=== PATIENT | male | born 1970 | race Caucasian/White ===

== ENCOUNTER → 2016-10-17 | Outpatient (CLI) | payer OTHER ==
[~2016-10-17] MED LIST: ACET-1256 PO; AMLO-114 PO; APIX1TAB3 PO; ASPI81TA28 PO; ATOR-24 PO; CLOP1TAB15 PO; CYAN10005 PO; DOXA2TAB PO; DOXY50CA PO; GLIP10TA9 PO; HYDR25TA4 PO; LOSA1TAB38 PO; LVT/20 PO; LYR50 PO; MAGNEVIST IV PRN; MECL1TAB42 PO; METF-384 PO; METH500T37 PO; METO1TAB68 PO; OMEP20CA9 PO; ONDA4TAB10 SL; SERT50TA PO; SITA100T3 PO; TRAM-10 PO
--- NOTE | 2016-10-17 10:55 | DIAGNOSTIC IMAGING REPORT ---
Brain MRA HISTORY: Mental status change HX OF Stroke, vascular EVALUATION TECHNIQUE: 3-D [id number] MRA of the brain was performed without contrast. COMPARISON STUDY: None. FINDINGS: Visualized intracranial internal carotid arteries, distal vertebral arteries, and basilar artery are widely patent. There is no significant stenosis, occlusion, or aneurysm seen within the bilateral ACAs, MCAs, or dividing machine operator helper. IMPRESSION: No significant stenosis, occlusion, or aneurysm within the minto of [place]. Electronically signed by: Adrián Fair M.D. 10/17/2016 10:54 AM Dictated Date/Time: 10/17/2016 10:49 AM
--- NOTE | 2016-10-17 11:01 | DIAGNOSTIC IMAGING REPORT ---
MR ANGIOGRAM OF THE NECK COMBO CLINICAL HISTORY: Strokelike symptoms. Headaches and vertigo. COMPARISON STUDY: No priors. TECHNIQUE: Axial 2-D [id number] MR angiography of the neck is performed. Subsequently, following the IV administration of 20 cc of Magnevist coronal MR angiogram of the neck was performed to corroborate the findings. 3-D reformats are created and assessed. All measurements were calculated based on NASCET criteria. FINDINGS: Visualized portions of the thoracic aorta are normal in caliber. The arch demonstrates standard 3 vessel anatomy. The subclavian arteries are widely patent bilaterally. The right common carotid artery is widely patent, as are the right internal and external carotid arteries. The left common carotid artery is widely patent, as are the left internal and external carotid arteries. There is tortuosity of the distal left internal carotid artery. The vertebral arteries are widely patent and codominant. The jugular veins appear clear. Partially visualized intracranial vessels are widely patent. IMPRESSION: Unremarkable MR angiogram of the neck. Electronically signed by: Amaury Graves M.D. 10/17/2016 11:00 AM Dictated Date/Time: 10/17/2016 10:55 AM
--- NOTE | 2016-10-17 11:04 | DIAGNOSTIC IMAGING REPORT ---
MRI OF THE BRAIN WITHOUT AND WITH IV CONTRAST CLINICAL HISTORY: Headaches, vertigo, suspected stroke. COMPARISON STUDY: No previous studies for comparison. TECHNIQUE: MRI of the brain was performed from the vertex to the skull base utilizing various T1 and T2 weighted sequences. Following the IV administration of 20 mL of Magnevist contrast, additional enhanced images were obtained. FINDINGS: Sagittal T1, axial diffusion, proton density and T2 weighted axial, coronal FLAIR, and pre and post axial T1-weighted images were acquired. These were supplemented with post gadolinium coronal T1 weighted images. 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 There is no evidence of ventricular dilatation. Proton density T2-weighted and FLAIR images reveal scattered foci of increased T2 signal within the white matter, likely on a small vessel basis. There are no abnormal flow voids. There is unusual serpentine enhancement involving both cerebellar hemispheres. These areas demonstrate mild increased T1 signal and precontrast images. There is corresponding increased FLAIR signal. Although somewhat unusual, I would favor the abnormalities being secondary to post infarct enhancement. A 2 month follow-up study is recommended. The study was reviewed with a fellow radiologist. IMPRESSION: 1. Serpentine/gyriform enhancement within the cerebellar hemispheres left greater than right. I would favor the abnormalities being secondary to subacute postinfarct enhancement. A 2 month follow-up study is recommended. 2. 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 Electronically signed by: Aly Gilman M.D. 10/17/2016 11:03 AM Dictated Date/Time: 10/17/2016 10:47 AM
== END | disposition home or self-care (01) ==
LOC: C.MRIBC 08:50
PROVIDERS: ATTEND Psychiatry & Neurology Neurology
DX: I63.9 Cerebral infarction, unspecified (principal); E34.8 Other specified endocrine disorders

== ENCOUNTER → 2016-12-02 | Day surgery (SDC) | payer OTHER ==
[2016-12-02] VITALS (7 sets, daily range): BP systolic 122–197; BP diastolic 81–106; PULSE 93–120; TEMP 36.6; O2SAT 92–99; Ht 185.4 cm; Wt 127.2 kg
[~2016-12-02] VITALS: Ht 185.4 cm; Wt 127.2 kg
[~2016-12-02] MED LIST changes: +LIDOCAINE HCL 2% 2 ML VIAL (20MG/ML) ONE; +LIDOCAINE HCL 2% VISC SOLN 20 ML UDC ONE; -MAGNEVIST IV PRN; +PROPOFOL IV EMULSION 10 MG/ML 20 ML VIAL IV ONE; +SODIUM CHLORIDE 0.9% 500ML 500 ML IV ONE
--- NOTE | 2016-12-02 07:46 | History & Physical Bridge Note ---
H&P Re-Evaluation Bridge Note: I have examined the patient, reviewed the History & Physical and in the interval since the performance of the History & Physical I have noted the following changes of clinical significance: Patient had an episode of emesis in procedure staging area. Eckert improved when assessed by the undersigned. Had been NPO with last meal at 9:30 pm last evening, had oral medications at 5 am this morning with sip of water. Notes recent labile blood glucose with high and low levels.
--- NOTE | 2016-12-02 08:01 | Cardiology Procedure Brief Nt ---
Preliminary Cardiology Note Procedure Date Dec 02, 2016. Pre-Procedure Diagnosis stroke, rule out cardiac souce of embolism Post-Procedure Diagnosis same Procedure(s) Performed NGOZI attempted, esophageal intubation was attempted. Soap Inspector Nabila Amaya DO Health Insurance Sales Agent(s) Elana Mcleod, TAYLA Estimated Blood Loss none Preliminary Findings Patient received topical cetacaine or the posterior oropharynx and viscous lidocaine. Patient received sedation with assistance of anesthesia, receiving 20 mg IV lidocaine and 100 mg IV propofol. An attempt at esophageal intubation was made, probe was advanced to the posterior oropharynx. The patient demonstrated a vigorous gag reflect and vomited yellow liquid. The procedure was aborted. Patient was suctioned vitals signed including oxygen saturations remained stable. Recommendations NGOZI canceled. Proceed with transthoracic echocardiogram this am as patient has yet to have one. Patient with no infectious symptoms prior to episode of emesis prior to procedure this am and second episode when procedure initiated. Given above events will obtain labs, CBC, CMP and EKG. Specimens none Anesthesia lidocaine 20 mg IV , propofol 100 mg IV Complication(s) None Disposition will obtain labs and monitor in cardiac supervisor laboratory recovery area, prior to determining disposition
[2016-12-02 08:22] LABS: BASO % 0.2 %; BASO ABS # 0.01 K/uL (0-0.2); EOS % 1.8 %; HEMATOCRIT 39.2 % (42-52); LYMPH % 18.9 %; LYMPH ABS # 0.97 K/uL (1.2-3.4); MEAN CELL VOLUME 79.8 fL (80-100); MEAN CORPUSCULAR HEMOGLOBIN 29.5 pg (25-34); MEAN PLATELET VOLUME 9.9 fL (7.4-10.4); MONO % 6.4 %; NEUT % 72.7 %; PLATELET COUNT 155 K/uL (130-400); RED BLOOD COUNT 4.91 M/uL (4.7-6.1); WHITE BLOOD COUNT 5.14 K/uL (4.8-10.8)
--- NOTE | 2016-12-02 08:22 | Anesthesiology Progress Note ---
Anesthesia Post Op Note Date & Time Dec 02, 2016 at 08:22 Vital Signs Pain Intensity: 6 Vital Signs Past 12 Hours Date Time Temp Pulse Resp B/P Pulse Ox O2 Delivery O2 Flow Rate FiO2 12/02/16 08:15 99 18 139/86 94 Room Air 12/02/16 08:05 99 16 147/85 94 Room Air 12/02/16 07:55 93 18 122/80 96 Room Air 12/02/16 07:45 95 14 122/82 99 Nasal Cannula 2 12/02/16 07:40 93 14 135/81 99 Nasal Cannula 4 12/02/16 07:38 101 18 197/93 98 Nasal Cannula 4 12/02/16 07:35 120 18 137/85 95 Nasal Cannula 4 12/02/16 07:31 99 17 146/103 98 Nasal Cannula 4 12/02/16 06:53 36.6 96 16 146/106 94 Room Air Notes Mental Status: alert / awake / arousable, participated in evaluation Pt Amnestic to Procedure: Yes Nausea / Vomiting: adequately controlled Pain: adequately controlled Airway Patency, RR, SpO2: stable & adequate BP & HR: stable & adequate Hydration State: stable & adequate Anesthetic Complications: no major complications apparent
[2016-12-02 08:27] LABS: COMPLETE YES
[2016-12-02 08:50] LABS: ALB/GLOB RATIO 1.1 (0.9-2); BUN/CREATININE RATIO 22.7 (10-20); CREATININE 0.88 mg/dl (0.60-1.40); POTASSIUM 3.7 mmol/L (3.5-5.1)
--- NOTE | 2016-12-02 09:47 | Cardiology Follow-Up ---
Subjective General Date of Service: Dec 02, 2016. Chief Complaint: dizziness Pt evaluation today including: conversation w/ patient, conversation w/ family , physical exam, lab review, review of studies History of Present Illness The patient is a 46 year old male who is reassessed in the cardiac laborer cement gun placing recovery area after unsuccessful NGOZI , test terminated due to vomiting. Patient feels well. He believes he vomited because he took 15 pills with a sip of water this am without food and typically he eats and splits up when he takes them instead of taking them all the time. He feels well now. He denies recurrent nausea. Labs are stable with stable electrolytes and no leukocytosis. Blood glucose is mildly elevated at 244 mg/dl which is not unusual for him. Allergies Coded Allergies: No Known Allergies (Unverified , 10/17/16) Social History Smoking Status: Former Smoker Hx Substance Use - Type And Am: Yes Physical Exam Vital Signs Last Vital Signs Documentation Date Time Temp Pulse Resp B/P Pulse Ox O2 Delivery O2 Flow Rate FiO2 12/02/16 08:45 92 16 135/92 93 Room Air 12/02/16 07:45 2 12/02/16 06:53 36.6 Physical Exam Constitutional: Level of Distress: NAD ENMT: normal ENT inspection Neck: supple Lungs: Auscultation: no wheezing, no rales/crackles, no rhonchi Cardiovascular: Heart Auscultation: RRR, normal S2, no rubs, no gallops Abdomen: Inspection & Palpation: soft, non-distended, no tenderness, guarding & rebound Extremities: no edema Neurologic: Gait & Station: pertinent finding (follows commands, moves all 4 extremities , continues to not gait difficulties ) Assessment and Plan Assessment and Plan Impression: 1. Emesis , as noted above, therefore NGOZI aborted. 2. Transthoracic echocardiogram revealing normal LVEF, no significant valve abnormalities, Resolution does not permit exclusion of PFO. 3. H/o DM2, with HTN, dyslipidemia, diabetic neuropathy, past foot ulcer that required amputation 4. Recent cerebellar stroke Plan: Patient has significant vascular risk factors, cause of stroke is likely due to atherosclerosis, rather than cardioembolic stroke. Given issues with attempting NGOZI, emesis despite performing test with anesthesia consult, believe risk of NGOZI (aspiration) outweigh clinical benefit at this time. Based on results of TTecho , would proceed with stroke therapy with ASA and clopidogrel as recommended already by neurology, and risk factor management with medication for DM, BP control, and statin therapy. Will see patient back in office in 1 month for reassessment. Nabila Amaya DO Laboratory Results Last 24 Hours Test 12/02/16 08:10 White Blood Count 5.14 K/uL Red Blood Count 4.91 M/uL Hemoglobin 14.5 g/dL Hematocrit 39.2 % Mean Corpuscular Volume 79.8 fL Mean Corpuscular Hemoglobin 29.5 pg Mean Corpuscular Hemoglobin Concent 37.0 g/dl Platelet Count 155 K/uL Mean Platelet Volume 9.9 fL Neutrophils (%) (Auto) 72.7 % Lymphocytes (%) (Auto) 18.9 % Monocytes (%) (Auto) 6.4 % Eosinophils (%) (Auto) 1.8 % Basophils (%) (Auto) 0.2 % Neutrophils # (Auto) 3.74 K/uL Lymphocytes # (Auto) 0.97 K/uL Monocytes # (Auto) 0.33 K/uL Eosinophils # (Auto) 0.09 K/uL Basophils # (Auto) 0.01 K/uL RDW Standard Deviation 37.4 fL RDW Coefficient of Variation 13.0 % Immature Granulocyte % (Auto) 0.0 % Immature Granulocyte # (Auto) 0.00 K/uL Sodium Level 136 mmol/L Potassium Level 3.7 mmol/L Chloride Level 99 mmol/L Carbon Dioxide Level 24 mmol/L Anion Gap 13.0 mmol/L Blood Urea Nitrogen 20 mg/dl Creatinine 0.88 mg/dl Est Creatinine Clear Calc Drug Dose 146.6 ml/min Estimated GFR () 119.4 Estimated GFR (Non- 103.0 BUN/Creatinine Ratio 22.7 Random Glucose 225 mg/dl Calcium Level 9.0 mg/dl Total Bilirubin 0.6 mg/dl Aspartate Amino Transf (AST/SGOT) 25 U/L Alanine Aminotransferase (ALT/SGPT) 55 U/L Alkaline Phosphatase 144 U/L Total Protein 7.2 gm/dl Albumin 3.8 gm/dl Globulin 3.4 gm/dl Albumin/Globulin Ratio 1.1
--- NOTE | 2016-12-02 09:50 | Discharge Instructions ---
Discharge Instructions Procedure Procedure Date: Dec 02, 2016. Reason for Visit: NGOZI, recent stroke. Discharge Discharge Date: Dec 02, 2016. Discharge Diagnosis: Unsuccessful NGOZI. Normal Transthoracic echocardiogram. Last Recorded Wt (Kilograms): 127.2 Anesthesia Post Anesthesia Instructions: If you have had General Anesthesia or IV Sedation: * Do not drive today. * Resume driving when surgeon permits. * Do not make important decisions or sign legal documents today. * Call surgeon for: 1. Temperature elevations greater than 101 degrees F. 2. Uncontrollable pain. 3. Excessive bleeding. 4. Persistent nausea and vomiting. 5. Medication intolerance (nausea, vomiting or rash). * For nausea and vomiting use only clear liquids such as: tea, soda, bouillon until nausea subsides, then gradually increase diet as tolerated. * If you have any concerns or questions, call your surgeon's office. If physician is unavailable and it is an emergency, call 911 or go to the nearest emergency room. Instructions Allergies: Coded Allergies: No Known Allergies (Unverified , 10/17/16) Provider Instructions ACTIVITY RECOMMENDATIONS: Resume activities as tolerated with no limitations unless specified. _x_ No lifting over _10_ pounds for 24 hours. _x_ Do not engage in vigorous exercise, sexual activity, or sports for 24 hours. __x Do not drive or operate any motorized equipment for 24 hours. __x You may return to work/school tomorrow. _x_ Nothing to eat or drink until gag reflex returns. _x_ No HOT or WARM liquids for _24_ hours. _x_ Avoid "scratchy" foods such as potato chips or pretzels for 24 hours following procedure. SPECIAL CARE: If you experience coughing up or vomiting of blood, contact ___Dr Amaya, [phone] Follow Up Follow-up with: Keep neurology follow up. Follow up with Dr Amaya in 1 month, office will call you. Jose Booth Recommendations: Call your doctor if: * Temperature above 101 degrees * Pain not relieved by pain medicine ordered * There is increased drainage or redness from any incision * You have any unanswered questions or concerns. Your Doctors Instructions noted above were prepared by provider Griffin Amaya. Patient Signature Section: Patient Instructions Signature Page Kris Haney Patient (or Guardian) Signature/Date: I have read and understand the instructions given to me by my caregivers. Caregiver/RN/Doctor Signature/Date: The above-named patient and/or guardian has received patient instructions on this date. + Original Patient Signature Page (only) stays with chart. Please make copy for patient.
--- NOTE | 2016-12-02 10:05 | ECHOCARDIOGRAM REPORT ---
*NOTICE TO RECEIVING [employer] This information is strictly Confidential and protected under [place] law. [place] law prohibits you from making any further disclosure of this information unless further disclosure is expressly permitted by the written consent of the person to whom it pertains or is authorized by law. A general authorization for the release of medical or other information is not sufficient for this purpose. Hospital accepts no responsibility if the information is made available to any other person, INCLUDING THE PATIENT. Interpretation Summary * Name: DARCIE MORIN Study Date: 12/02/2016 07:24 AM BP: 146/106 mmHg * Patient Location: Cardiac Frontend Engineer Holding area HR: 95 * : 1970 (M/d/yyyy) Gender: Male Height: 73 in * Age: 46 yrs Ethnicity: [place] Weight: 280 lb * Ordering Physician: Griffin Amaya DO, FACC * Referring Physician: Griffin Amaya DO, FACC * Performed By: Duran Mcleod [facility] * * Reason For Study: Cerebral Ischemia/Embolus * BSA: 2.5 m2 * NGOZI Probe #1 utilized for procedure. Procedure was aborted when probe insertion was attempted due to patient vomiting. Insertion attempted at 7:44 AM. A Transthoracic ECHO was performed instead. * Time out was conducted by the physician, nurse, and organic preparation technician with positive identification of patient and procedure. * Informed consent for Transesophageal Echocardiogram was obtained prior to the procedure. * An intravenous line was placed. A topical anesthetic agent was used for oropharangeal anesthesia. A bite block was inserted. * Sedation performed by the anesthesia department. * The patient's vital signs, including blood pressure, heart rate, pulse oximetry and cardiac rhythm were monitored throughout the procedure * The study was technically adequate. * -- Conclusions -- * Transesophageal echocardiogram procedure was aborted due to vomiting when probe insertion was attempted. * A complete transthoracic echocardiogram was therefore performed. * No regional wall motion abnormalities noted. * There is no left ventricular mural thrombus. * The LV Ejection Fraction = 65-70%. * There is no evidence of atrial septal defect, but resolution does not allow assessment for a patent foramen ovale. Procedure Details * A complete two-dimensional transthoracic echocardiogram was performed (2D, M-mode, Doppler and color flow Doppler). * A saline contrast injection was performed to assess for cardiac shunting. * The injection was performed through an intravenous line in the left arm. * The attending nurse who injected the saline contrast was Caleb Gould RN. * A total of 20 cc of agitated saline was given. * A contrast injection of Definity was performed to improve assessment of LV function. * Contrast was injected into an intravenous site in the left arm. * One vial of Definity ultrasound contrast was diluted in normal saline to a total volume of 10 ml. A total of '2' ml of solution was administered during imaging. * Lot # [id number] of Definity utilized for procedure. * Expiration date 1APR18. * The attending nurse who injected the contrast agent was Caleb Gould RN. Left Ventricle * The left ventricle is normal in size. * There is no left ventricular mural thrombus. * There is borderline concentric left ventricular hypertrophy. * Left ventricular systolic function is normal. * Ejection Fraction = 65-70%. * The left ventricular wall motion is normal. * No regional wall motion abnormalities noted. Right Ventricle * The right ventricle is normal size. * The right ventricular systolic function is normal as assessed by tricuspid annular plane systolic excursion (TAPSE) (normal >1.5 cm). Atria * The left atrial size is normal. * Right atrial size is normal. * There is no evidence of atrial septal defect, but resolution does not allow assessment for a patent foramen ovale. Mitral Valve * The mitral valve is normal. * There is no mitral valve stenosis. * Significant mitral regurgitation is absent. Tricuspid Valve * The tricuspid valve is normal. * There is no tricuspid stenosis. * Significant tricuspid regurgitation is absent. Aortic Valve * The aortic valve is trileaflet. * Aortic stenosis is absent. * There is no significant aortic regurgitation. Pulmonic Valve * The pulmonary valve is not well seen, but the Doppler examination is normal without significant regurgitation or stenosis. Great Vessels * The aortic root and proximal ascending aorta are normal sized. Pericardium/Pleural * There is no pericardial effusion. Great Vessels * Normal inferior vena cava diameter and respiratory variation suggests normal central venous pressure. Left Ventricular Diastolic Function * Grade I diastolic dysfunction, (abnormal relaxation pattern). MMode 2D Measurements and Calculations IVSd 1.1 cm IVSs 1.3 cm LVIDd 5.2 cm LVIDs 3.6 cm LVPWd 1.1 cm LVPWs 1.4 cm IVS/LVPW 1.0 FS 29.3 % EDV(Teich) 126.6 ml ESV(Teich) 56.0 ml EF(Teich) 55.8 % EDV(cubed) 136.6 ml ESV(cubed) 48.3 ml EF(cubed) 64.6 % % IVS thick 11.6 % % LVPW thick 30.7 % LV mass(C)d 220.3 grams LV mass(C)dI 88.7 grams/m\S\2 LV mass(C)s 171.5 grams LV mass(C)sI 69.1 grams/m\S\2 CO(Teich) 6.6 l/min CI(Teich) 2.7 l/min/m\S\2 SV(Teich) 70.7 ml SI(Teich) 28.5 ml/m\S\2 CO(cubed) 8.3 l/min CI(cubed) 3.3 l/min/m\S\2 SV(cubed) 88.3 ml SI(cubed) 35.6 ml/m\S\2 Ao root diam 4.0 cm Ao root area 12.8 cm\S\2 ACS 2.0 cm LA dimension 3.5 cm LA/Ao 0.86 LVAd ap4 32.4 cm\S\2 LVLd ap4 8.8 cm EDV(MOD-sp4) 101.0 ml LVAs ap4 16.1 cm\S\2 LVLs ap4 7.0 cm ESV(MOD-sp4) 30.0 ml EF(MOD-sp4) 70.3 % LVAd ap2 32.5 cm\S\2 LVLd ap2 8.8 cm EDV(MOD-sp2) 98.0 ml LVAs ap2 16.3 cm\S\2 LVLs ap2 6.9 cm ESV(MOD-sp2) 33.0 ml EF(MOD-sp2) 66.3 % CO(MOD-sp4) 6.7 l/min CI(MOD-sp4) 2.7 l/min/m\S\2 SV(MOD-sp4) 71.0 ml SI(MOD-sp4) 28.6 ml/m\S\2 CO(MOD-sp2) 6.1 l/min CI(MOD-sp2) 2.5 l/min/m\S\2 SV(MOD-sp2) 65.0 ml SI(MOD-sp2) 26.2 ml/m\S\2 Doppler Measurements and Calculations MV E max harpal 63.2 cm/sec MV A max harpal 73.7 cm/sec MV E/A 0.86 MV P1/2t max harpal 82.7 cm/sec MV P1/2t 55.4 msec MVA(P1/2t) 4.0 cm\S\2 MV dec slope 437.0 cm/sec\S\2 MV dec time 0.19 sec Ao V2 max 129.0 cm/sec Ao max PG 6.7 mmHg Ao max PG (full) 2.3 mmHg LV V1 max PG 4.3 mmHg LV V1 max 103.7 cm/sec PA V2 max 103.7 cm/sec PA max PG 4.3 mmHg
--- NOTE | 2016-12-02 10:49 | TEE ---
TRANSESOPHAGEAL ECHOCARDIOGRAM REPORT INDICATIONS: Recent cerebellar stroke, assess for cardiac source of embolism. PROCEDURE: After informed consent was obtained and a time out was performed, the patient's posterior oropharynx was anesthetized with administration of viscous lidocaine and Cetacaine spray. The patient then received anesthesia with the assistance of Dr. Mejia, receiving 20 mg of IV lidocaine and 100 mg of IV propofol. The transesophageal echocardiogram probe was passed into the posterior oropharynx and as it was advanced to the proximal esophagus, the patient developed a vomiting episode of yellow liquid. The transesophageal echocardiogram probe was therefore withdrawn and the patient's secretions were suctioned. The patient's vital signs remained stable. There was no clinical evidence of aspiration. The transesophageal echocardiogram procedure was therefore aborted due to the emesis event. The patient went on to have a transthoracic echocardiogram for further evaluation for cardiac source of embolism as he had never had one of these studies before. The patient recovered in the cardiac catheterization recovery area. Blood pressures and lab work was stable and he was subsequently discharged. Refer to separate report for details of the transthoracic echocardiogram findings. RAZAD
== END | disposition home or self-care (01) ==
LOC: C.CATH 06:30
PROVIDERS: ATTEND Specialist
DX: I63.9 Cerebral infarction, unspecified (principal); I10 Essential (primary) hypertension; E11.42 Type 2 diabetes mellitus with diabetic polyneuropathy; E78.5 Hyperlipidemia, unspecified; Z98.890 Other specified postprocedural states; Z89.419 Acquired absence of unspecified great toe; E66.01 Morbid (severe) obesity due to excess calories; Z87.891 Personal history of nicotine dependence; Z79.82 Long term (current) use of aspirin

== ENCOUNTER 2016-12-27 19:14 | Inpatient (IN) | payer OTHER ==
[~2016-12-27] VITALS: Ht 185.4 cm; Wt 128.4 kg
[~2016-12-27 19:14] MED LIST changes: -APIX1TAB3 PO; -LIDOCAINE HCL 2% 2 ML VIAL (20MG/ML) ONE; -LIDOCAINE HCL 2% VISC SOLN 20 ML UDC ONE; -METO1TAB68 PO; -PROPOFOL IV EMULSION 10 MG/ML 20 ML VIAL IV ONE; -SODIUM CHLORIDE 0.9% 500ML 500 ML IV ONE
[2016-12-27] MEDS ORDERED: METOPROLOL TARTRATE 1 MG/ML VIAL IV STA (20:02)
[2016-12-27] MEDS ORDERED: SODIUM CHLORIDE 0.9% 1000ML 500 ML IV STA (20:02)
--- NOTE | 2016-12-27 20:15 | EMERGENCY ROOM VISIT NOTE ---
History Report prepared by Irene: Esdras Krishnan Under the Supervision of: Dr. Amaury Burk M.D. First contact with patient: 19:55 Chief Complaint: TACHYCARDIA Stated Complaint: AFIB- PHYSICIAN REFERRED Nursing Triage Summary: patient had a stroke in september, has been wearing a holter monitor since, patient states "it went off today, called the doctor and they said I was in a-fib and to get to the hospital." denies chest pain, SOB History of Present Illness The patient is a 46 year old male who presents to the Emergency Room with complaints of resolved episode of atrial fibrillation that occurred prior to arrival today. The patient had a stroke in September, and had a Holter monitor put on a month ago in order to determine what caused the stroke. The patient's primary care physician called the patient's to notify her that there was an alert from the Holter monitor company, saying that the patient was in atrial fibrillation and that the patient should come here to be monitored and possibly put on Coumadin. The patient is currently on Aspirin. This is the first alert that the patient has gotten. He notes that he has occasionally felt his heart going faster. He describes it feeling like his heart is jumping out of his chest. This occurs around 2 or 3 times per week for him. Currently, the patient says that his heart feels like it has slowed down. He denies any chest pain or shortness of breath. The patient has had persistent balance issues since the stroke, and he has constant vertigo, per the patient's . He is diabetic. The patient's medications include Metformin, Januvia, Glipizide, Losartan, Norvasc and Amlodipine. Source of History: patient, spouse/significant other Onset: Prior to arrival today Position: other (heart - atrial fibrillation) Timing: other (episode) Associated Symptoms: No SOB, No chest pain Note: Associated symptoms: Occasionally feels his heart going faster, describes it feeling like his heart is jumping out of his chest. Notes heart has slowed down. Review of Systems See HPI for pertinent positives & negatives. A total of 10 systems reviewed and were otherwise negative. Past Medical & Surgical Medical Problems: (1) Diabetes (2) HTN (hypertension) (3) Kidney disease (4) Stroke (5) Vertigo Family History Diabetes mellitus FH: heart disease Hypertension Kidney disease Social History Smoking Status: Never Smoker Smokeless Tobacco Use: No Alcohol Use: none Marital Status: Housing Status: lives with family Occupation Status: unemployed Current/Historical Medications Scheduled Amlodipine (Norvasc), 10 MG PO DAILY Aspirin (Aspirin Ec), 81 MG PO DAILY Atorvastatin (Lipitor), 40 MG PO DAILY Clopidogrel (Plavix), 75 MG PO DAILY Cyanocobalamin (Vitamin B-12), 2,000 MCG PO DAILY Doxazosin Mesylate (Cardura), 1 MG PO DAILY Doxycycline Hyclate (Vibramycin), 2 CAP PO BID Glipizide (Glucotrol), 10 MG PO BID Hydrochlorothiazide (Hctz), 25 MG PO DAILY Losartan Potassium (Cozaar), 1 TAB PO DAILY Metformin Hcl (Glucophage), 1,000 MG PO BID Methocarbamol (Robaxin), 2 TABS PO TID Omeprazole (Prilosec), 20 MG PO DAILY Pregabalin (Lyrica), 50 MG PO TID Sertraline (Zoloft), 50 MG PO DAILY Sitagliptin Phosphate (Januvia), 100 MG PO DAILY Vardenafil (Levitra), 20 MG PO DIRECTED Scheduled PRN Acetaminophen (Tylenol), 1,000 MG PO Q8 PRN for Pain Meclizine Hcl (Meclizine Hcl), 1 TAB PO TID PRN for Dizziness or Vertigo Ondasetron Odt (Zofran Odt), 4 MG SL Q8 PRN for Nausea Tramadol (Ultram), 50 MG PO Q6H PRN for Pain Allergies Coded Allergies: No Known Allergies (Unverified , 10/17/16) Physical Exam Vital Signs Date Time Temp Pulse Resp B/P Pulse Ox O2 Delivery O2 Flow Rate FiO2 12/27/16 20:20 Nasal Cannula 2.0 12/27/16 20:18 112 12/27/16 20:14 110 16 157/95 97 12/27/16 20:13 102 157/95 12/27/16 20:07 97 Room Air 12/27/16 19:21 36.7 117 20 162/112 93 Room Air Physical Exam GENERAL: Patient is in no acute distress. HEENT: No acute trauma, normocephalic atraumatic, mucous membranes moist, no nasal congestion, no scleral icterus. NECK: No stridor, no adenopathy, no meningismus, trachea is midline. LUNGS: Clear to auscultation bilaterally, no wheeze, no rhonchi, breath sounds equal. HEART: Mildly tachycardic with regular rhythm. No murmurs. ABDOMEN: Soft, nontender, bowel sounds positive, no hernias, no peritonitis. EXTREMITIES: No cyanosis, full range of motion of all the joints without pain or difficulty, no signs for acute trauma. Mild bilateral pitting pedal edema. NEUROLOGIC: Oriented x 3, no acute motor or sensory deficits, no focal weakness. SKIN: No rash, no jaundice, no diaphoresis. Medical Decision & Procedures ER Provider Diagnostic Interpretation: X-ray results as stated below per interpretation by me and the radiologist: CHEST ONE VIEW PORTABLE CLINICAL HISTORY: Atypical chest pain COMPARISON STUDY: No previous studies for comparison. FINDINGS: The cardiac and mediastinal contours are normal. There is no evidence of focal pulmonary consolidation. There is no evidence of failure. No pleural effusions are visualized.[ Interstitial markings are accentuated due to the patient's large body habitus. IMPRESSION: No active disease in the chest. Electronically signed by: Aly Gilman M.D. 12/27/2016 8:46 PM Dictated Date/Time: 12/27/2016 8:46 PM Laboratory Results 12/27/16 19:50 12/27/16 19:50 Test 12/27/16 19:50 Red Blood Count 4.82 M/uL (4.7-6.1) Mean Corpuscular Volume 85.3 fL (80-100) Mean Corpuscular Hemoglobin 30.3 pg (25-34) Mean Corpuscular Hemoglobin Concent 35.5 g/dl (32-36) RDW Standard Deviation 41.3 fL (36.4-46.3) RDW Coefficient of Variation 13.4 % (11.5-14.5) Mean Platelet Volume 10.5 fL (7.4-10.4) Prothrombin Time 10.3 SECONDS (9.0-12.0) Prothromb Time International Ratio 1.0 (0.9-1.1) Activated Partial Thromboplast Time 25.3 SECONDS (21.0-31.0) Partial Thromboplastin Ratio 1.0 Anion Gap 14.0 mmol/L (3-11) Est Creatinine Clear Calc Drug Dose 99.9 ml/min Estimated GFR () 83.5 Estimated GFR (Non- 72.1 BUN/Creatinine Ratio 15.4 (10-20) Calcium Level 8.8 mg/dl (8.5-10.1) Magnesium Level 1.3 mg/dl (1.8-2.4) Total Bilirubin 0.6 mg/dl (0.2-1) Aspartate Amino Transf (AST/SGOT) 26 U/L (15-37) Alanine Aminotransferase (ALT/SGPT) 59 U/L (12-78) Alkaline Phosphatase 230 U/L (45-117) Troponin I < 0.015 ng/ml (0-0.045) Total Protein 7.1 gm/dl (6.4-8.2) Albumin 3.7 gm/dl (3.4-5.0) Globulin 3.4 gm/dl (2.5-4.0) Albumin/Globulin Ratio 1.1 (0.9-2) Thyroid Stimulating Hormone (TSH) 1.480 uIu/ml (0.300-4.500) Laboratory results reviewed by me. Medications Administered Medications (Trade) Dose Ordered Sig/Jackie Route Start Time Stop Time Status Last Admin Dose Admin Metoprolol Tartrate 10 mg 10 mg NOW STAT IV 12/27/16 20:02 12/27/16 20:05 DC 12/27/16 20:13 10 MG Sodium Chloride 500 ml @ 999 mls/hr Q31M STAT IV 12/27/16 20:02 12/27/16 20:32 DC 12/27/16 20:14 999 MLS/HR Sodium Chloride (Nss 500ml) 500 ml @ 999 mls/hr Q31M STAT IV 12/27/16 20:58 12/27/16 21:28 DC 12/27/16 21:08 999 MLS/HR Insulin Human Regular (novoLIN-R U-100 PER UNIT) 10 units NOW STAT IV 12/27/16 20:58 12/27/16 20:59 DC 12/27/16 21:10 10 UNITS ECG Indication: tachycardia Rate (beats per minute): 102 Rhythm: sinus tachycardia Findings: no acute ischemic change, no ectopy, other (some nonspecific ST change in lateral leads) Comparison ECG Date: nonspecific ST changes in lateral leads appear new compared to 12/02/16 ED Course 1954: The patient was evaluated in room C12B. A complete history and physical exam was performed. 2001: Ordered NSS 500 ml @ 999 mls/hr IV, Lopressor IV 10 mg IV. 2057: Ordered Novolin-R U-100 PER UNIT 10 units IV. 2130: I reevaluated the patient and he is feeling fine. His heart rate is down to the 90s. The patient verbally expressed understanding and agreement of the treatment plan. The patient will be evaluated for further treatment. 2134: I discussed the patient with Dr. Dillon Miller head bookkeeper - he will evaluate the patient for further treatment. Medical Decision Differential diagnosis includes but is not limited to atrial fibrillation or atrial flutter, sinus tachycardia, electrolyte imbalance, anemia, dehydration, thyroid disorder. There is no leukocytosis or worrisome anemia. Blood sugar is quite high at over 400, no kidney failure, no hepatitis. There is no coagulopathy. EKG shows a sinus tachycardia with some nonspecific findings, no acute ischemia. Cardiac enzyme testing times one is not consistent with acute cardiac injury. Chest film shows no mediastinal widening, pneumonia or pneumothorax. The patient received IV saline, 500 mL 2. He received IV insulin and was given 2 doses of IV Lopressor, 5 mg at a time. The patient is doing well. His heart rate is now in the 90s, he has no complaints. I did speak with the patient and case management. The on-call hospitalist was consulted. Admission/observation is warranted for the diagnosis of atrial fibrillation. Consults Time Called: 2130 Consulting Physician: Dr. Dillon Miller head bookkeeper Returned Call: 2134 I discussed the patient with Dr. Dillon Miller head bookkeeper - he will evaluate the patient for further treatment. Impression Primary Impression: Tachycardia Additional Impression: Hyperglycemia Scribe Attestation The scribe's documentation has been prepared under my direction and personally reviewed by me in its entirety. I confirm that the note above accurately reflects all work, treatment, procedures, and medical decision making performed by me. Departure Information Dispostion Being Evaluated By Hospitalist Referrals Papa Colmenares D.O. (PCP) Patient Instructions My [facility] Problem Qualifiers
[2016-12-27 20:20] LABS: HEMATOCRIT 41.1 % (42-52); MEAN CELL VOLUME 85.3 fL (80-100); MEAN CORPUSCULAR HEMOGLOBIN 30.3 pg (25-34); MEAN CORPUSCULAR HGB CONC 35.5 g/dl (32-36); MEAN PLATELET VOLUME 10.5 fL (7.4-10.4); PLATELET COUNT 166 K/uL (130-400); RED BLOOD COUNT 4.82 M/uL (4.7-6.1); WHITE BLOOD COUNT 5.14 K/uL (4.8-10.8)
[2016-12-27 20:32] LABS: PROTHROMBIN TIME (PATIENT) 10.3 SECONDS (9.0-12.0)
--- NOTE | 2016-12-27 20:49 | DIAGNOSTIC IMAGING REPORT ---
CHEST ONE VIEW PORTABLE CLINICAL HISTORY: Atypical chest pain COMPARISON STUDY: No previous studies for comparison. FINDINGS: The cardiac and mediastinal contours are normal. There is no evidence of focal pulmonary consolidation. There is no evidence of failure. No pleural effusions are visualized.[ Interstitial markings are accentuated due to the patient's large body habitus. IMPRESSION: No active disease in the chest. Electronically signed by: Aly Gilman M.D. 12/27/2016 8:46 PM Dictated Date/Time: 12/27/2016 8:46 PM
[2016-12-27 20:54] LABS: ALB/GLOB RATIO 1.1 (0.9-2); ALKALINE PHOSPHATASE 230 U/L (45-117); ALT/SGPT 59 U/L (12-78); BLOOD UREA NITROGEN 19 mg/dl (7-18); BUN/CREATININE RATIO 15.4 (10-20); CALCIUM 8.8 mg/dl (8.5-10.1); CARBON DIOXIDE 26 mmol/L (21-32); CHLORIDE 96 mmol/L (98-107)
[2016-12-27] MEDS ORDERED: NovoLIN-R INSULIN PER UNIT CHARGE IV STA (20:58)
[2016-12-27] MEDS ORDERED: SODIUM CHLORIDE 0.9% 500ML 500 ML IV STA (20:58)
[2016-12-27 20:59] LABS: GLUCOSE 459 mg/dl (70-99)
[2016-12-27 21:09] LABS: AST/SGOT 26 U/L (15-37); POTASSIUM 3.7 mmol/L (3.5-5.1); SODIUM 136 mmol/L (136-145)
[2016-12-27 21:10] LABS: MAGNESIUM 1.3 mg/dl (1.8-2.4)
[2016-12-27] MEDS ORDERED: POTASSIUM CHLORIDE 10 MEQ TABCR PO STA (21:48)
[2016-12-27] MEDS ORDERED: INSULIN GLARGINE SOLOSTAR 100 UNITS/ML 3 ML PEN SC STA (22:31)
[2016-12-27] MEDS ORDERED: PREGABALIN 50 MG CAP PO ONE (22:39)
[2016-12-27] MEDS ORDERED: SERTRALINE HCL 50 MG TAB PO ONE (22:39)
[2016-12-27] MEDS ORDERED: ATORVASTATIN 20 MG TAB PO ONE (22:39)
[2016-12-27] MEDS ORDERED: TRAMADOL HCL 50 MG TAB PO ONE (22:39)
[2016-12-27] MEDS ORDERED: DOXYCYCLINE HYCLATE 50 MG CAP PO ONE (22:39)
[2016-12-27] MEDS ORDERED: INSULIN ASPART 100 UNITS/ML 3 ML PEN SC STA (22:40)
[2016-12-27] MEDS ORDERED: GLUCOSE 10 TABS/TUBE PO PRN (22:45)
[2016-12-27] MEDS ORDERED: LORAZEPAM 2 MG/ML 1 ML VIAL IV PRN (22:45)
[2016-12-27] MEDS ORDERED: NITROGLYCERIN 0.4 MG SL PER TAB CHARGE SL PRN (22:45)
[2016-12-27] MEDS ORDERED: DEXTROSE 50% 50 ML SYR IV PRN (22:45)
[2016-12-27] MEDS ORDERED: ONDANSETRON INJ 2 MG/ML 2 ML VIAL IV PRN (22:45)
[2016-12-27] MEDS ORDERED: MoRPHine SULFATE 4 MG/ML 1 ML CARP\\VIAL IV PRN (22:45)
[2016-12-27] MEDS ORDERED: TRAMADOL HCL 50 MG TAB PO PRN (22:45)
[2016-12-27] MEDS ORDERED: GLUCAGON FOR INJ 1 MG VIAL SQ PRN (22:45)
[2016-12-27] MEDS ORDERED: GLUCOSE 40% GEL 15 GM TUBE PO PRN (22:45)
[2016-12-27] MEDS ORDERED: METOPROLOL TARTRATE 25 MG TAB PO ONE (22:51)
[2016-12-27] MEDS: MAGNESIUM SULFATE 1GM / D5W 1 GM in PREMIXED IN D5W 100 ML IV SCH (22:52)
[2016-12-27 23:09] LABS: BETA-HYDROXYBUTYRATE 2.02 mg/dL (0.2-2.81)
[2016-12-27 23:30] VITALS: BP 163/94; PULSE 89; TEMP 36.8; O2SAT 94; Ht 185.4 cm; Wt 128.4 kg
[2016-12-27] MEDS ORDERED: NSS + 20MEQ KCL 1000ML 1,000 ML IV ONE (23:30)
[2016-12-28] MEDS: ACETAMINOPHEN 325 MG TAB PO PRN ×2 (00:06→08:38)
[2016-12-28] MEDS: MAGNESIUM SULFATE 1GM / D5W 1 GM in PREMIXED IN D5W 100 ML IV SCH ×2 (00:13→01:33)
--- NOTE | 2016-12-28 03:13 | HISTORY & PHYSICAL EXAMINATION ---
DATE OF ADMISSION: 12/27/2016 PRIMARY CARE DOCTOR: Papa Colmenares DO Hx obtained from px and records. CHIEF COMPLAINT: A-Fib on the Holter, sent by the doctor HISTORY OF PRESENT ILLNESS: Medical history is significant for cerebellar CVA, hypertension, hyperlipidemia , PVD, DM2 on oral meds, rosacea, and past tobacco abuse. In September 2016, the patient had vertigo-like symptoms. CT scan at [facility] [facility] suggested a posterior distribution stroke. Outpx [facility] Neurology consultation last October 2016. Patient was started on ASA and Plavix for stroke prevention. MRI/MRA showed a subacute infarct within the cerebellar hemispheres. Contemplated NGOZI by [facility] Cardiology to rule out cardioembolic source last 12/02/16 aborted due to vomiting. A TTE done at that time showed normal LVEF of 65-70%. Thirty day Holter monitor ordered by neurologist as well. Today, patient's neurologist notified by [facility] [employer] of A-Fib event of 170 beats per minute. Patient's neurologist advised px to proceed to the Emergency Room. PX denies cp or sob. Occasional palpitations. At the Emergency Room, the patient noted to be in sinus tachycardia. He received Lopressor 10 mg IV. Blood sugars was noted to be 400. He received regular insulin IV as well. MEDICAL HISTORY: As above. Home BGs usually 200s. SURGERIES: Back surgeries and some toe amputation. HOME MEDICATIONS: Include; aspirin, Plavix, Lipitor, Zoloft, Ultram, Levitra, Glucophage, Robaxin, Prilosec, Zofran, Cardura, Vibramycin, Glucotrol, HCTZ, Cozaar, meclizine, Tylenol, Norvasc, Plavix and vitamin B12. ALLERGIES: No drug allergies. FAMILY HISTORY: heart dse PERSONAL AND SOCIAL HISTORY: Past tobacco abuse, no ETOH abuse, disabled REVIEW OF SYSTEMS: As per HPI, all other ROS negative. PHYSICAL EXAMINATION: VITAL SIGNS: Blood pressure was noted to be 162/112 later 150/90, pulse rate 117 later 92, RR 16, temperature 36.6, sats 98 on room air. GENERAL: Noted to obese, looks older for stated age SKIN: Normal color. HEENT: Partial alopecia. [place] palpebral conjuctivae. Dry mucosa. NECK: Short neck. LUNGS: Decreased breath sounds. HEART: Tachycardic. ABDOMEN: Some distention, non- tender. EXTREMITIES: no edema. no tenderness NEUROLOGIC: No gross focality. LABORATORIES: Hemoglobin 13.6 hematocrit 41, white cell count 10, platelets 166. Sodium 137, K 3.7, chloride 96, CO2 26, BUN 90, creatinine 1.2, glucose 459, anion gap was 14. trop 0, Ketones are still pending. EKG, sinus tachycardia, some T-wave abnormalities in the lateral leads. Chest x-ray showed no active disease. ASSESSMENT: 1. Paroxysmal atrial fibrillation new onset captured on outpx Holter monitor; Initial sinus tachycardia upon arrival in the ER improved after IV BB admin may be related to low electrolytes, hyperglycemia, mild clinical dehydration 2. history cerebellar CVA from September 2016 possibly embolic with finding of PAF. 3. Hypertension, slightly elevated. 4. DM2, on oral medications suboptimal control as of recent, outpx HgA1c (8.5 as of October 2016) 5. Hyperlipidemia on statin therapy. 6. past tobacco abuse. PLAN: PCU replace electrolytes, IV fluids. 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 Amaya. Further eval/mx of PAF as per Cardiology Basal insulin, ISS BG goal 140-180 carb count coverage indicated for suboptimal blood sugar control. DVT prophylaxis. Heparin. Full code. MTDD
[2016-12-28 04:20] VITALS: BP 144/96; PULSE 76; TEMP 36.3; O2SAT 93
[2016-12-28 06:13] LABS: BASO % 0.2 %; BASO ABS # 0.01 K/uL (0-0.2); COMPLETE YES; HEMATOCRIT 38.9 % (42-52); LYMPH % 41.3 %; LYMPH ABS # 1.86 K/uL (1.2-3.4); MEAN CELL VOLUME 84.4 fL (80-100); MEAN CORPUSCULAR HEMOGLOBIN 29.9 pg (25-34); MEAN CORPUSCULAR HGB CONC 35.5 g/dl (32-36); MEAN PLATELET VOLUME 10.3 fL (7.4-10.4); MONO % 6.7 %; NEUT % 49.8 %; PLATELET COUNT 144 K/uL (130-400); RED BLOOD COUNT 4.61 M/uL (4.7-6.1)
[2016-12-28 06:22] LABS: PARTIAL THROMBOPLASTIN RATIO 1.1
[2016-12-28 06:53] LABS: BUN/CREATININE RATIO 15.8 (10-20); CALCIUM 8.2 mg/dl (8.5-10.1); CREATININE 0.81 mg/dl (0.60-1.40); MAGNESIUM 2.1 mg/dl (1.8-2.4); POTASSIUM 3.9 mmol/L (3.5-5.1)
[2016-12-28] MEDS ORDERED: HEPARIN IV BOLUS 6,000 UNIT in SYRINGE 0 ML IV STA (06:56)
[2016-12-28] MEDS ORDERED: PNEUMOCOCCAL POLYSACCHARIDES 25 MCG/0.5 ML VIAL/SYR IM. ONE (08:00)
[2016-12-28] MEDS ORDERED: PNEUMOCOCCAL ADMINISTRATION CHARGE ONE (08:00)
[2016-12-28 08:06] VITALS: BP 154/94; PULSE 82; TEMP 36.3; O2SAT 93
[2016-12-28] MEDS: INSULIN ASPART 100 UNITS/ML 3 ML PEN SC SCH ×2 (08:19→11:52)
[2016-12-28] MEDS: METHOCARBAMOL 500 MG TAB PO SCH ×2 (08:23→13:27)
[2016-12-28] MEDS: PREGABALIN 50 MG CAP PO SCH ×2 (08:25→13:27)
[2016-12-28] MEDS: HEPARIN 25,000 UNIT/500ML D5W 500 ML IV PRN ×2 (08:40)
[2016-12-28] MEDS ORDERED: DOXAZosin MESYLATE TAB 2 MG TAB PO SCH ×2 (09:00→12:00)
[2016-12-28] MEDS ORDERED: ASPIRIN 81 MG ECTAB PO SCH (09:00)
[2016-12-28] MEDS ORDERED: LOSARTAN POTASSIUM 50 MG TAB PO SCH (09:00)
[2016-12-28] MEDS ORDERED: DOXYCYCLINE HYCLATE 50 MG CAP PO SCH (09:00)
[2016-12-28] MEDS ORDERED: INSULIN GLARGINE SOLOSTAR 100 UNITS/ML 3 ML PEN SC SCH (09:00)
[2016-12-28] MEDS ORDERED: PANTOprazole SOD 40 MG TAB PO SCH (09:00)
[2016-12-28] MEDS ORDERED: METOPROLOL TARTRATE 25 MG TAB PO SCH (09:00)
[2016-12-28] MEDS ORDERED: AMLODIPINE BESYLATE 5 MG TAB PO SCH ×2 (09:00→12:00)
[2016-12-28] MEDS ORDERED: APIXABAN 2.5 MG TAB PO ONE (10:15)
[2016-12-28] MEDS ORDERED: METOPROLOL SUCC 50MG EXT REL TAB PO ONE (10:19)
[2016-12-28] MEDS ORDERED: [UNRECOGNIZED DRUG - REMARK] ONE (10:30)
--- NOTE | 2016-12-28 10:49 | Cardiology Consultation ---
Cardiology Consultation Date of Consultation: Dec 28, 2016 History of Present Illness Kris Haney is a 46 year old male seen in cardiology consultation per the request of Dr. Costa for further management of atrial fibrillation. I previously seen the patient in outpatient consultation on 11/25/16. At that time he was assessed due to his history of a recent cerebellar stroke. In October 2016 the patient had presented to another institution with complaints of lightheadedness, dizziness and vomiting. It was felt that perhaps he was having a viral illness and he was treated with IV fluids and discharged. He continued to have symptoms and was seen by neurology and an outpatient MRI revealed findings of a cerebellar stroke. The patient was seen in outpatient cardiology evaluation and resting EKG revealed normal sinus rhythm with no significant ST changes. On 12/02/16 the patient underwent an attempted transesophageal echocardiogram, however the procedure had to be aborted due to 2 episodes of vomiting. He underwent a high quality transthoracic echocardiogram on that day instead the revealed no regional wall motion abnormalities and normal LV ejection fraction of 65-70%. No left ventricular mural thrombus was noted. There is no evidence of an atrial septal defect, but the resolution was insufficient to exclude occult PFO. Given the patient's underlying vascular risk factors, it was felt that repeat attempt at transesophageal echocardiogram was not necessary and that ongoing antiplatelet therapy with aspirin and clopidogrel was warranted as well as an outpatient banquet houseperson to rule out occult atrial fibrillation. The patient had a 30 day CardioNet wireless event monitor placed on 12/08/16. Yesterday, Dr. Jensen of neurology received an urgent notification that the patient had episodes of atrial fibrillation with rapid ventricular rate with rate as high as 170 bpm. I called the monitor company today and had the available strips faxed over. The event in question took place on 12/27/16 at 1325 hrs. and reveals findings consistent with atrial fibrillation as high as 170 bpm. The onset of atrial fibrillation is not available however spontaneous onset to sinus rhythm was noted at 1346. The patient is not recalled that he had any definite symptoms during this time he thought that he had a episode of subjective palpitations about an hour earlier at 12:30, but no telemetry strips reveal arrhythmia that time. Dr. Jensen contacted the patient by telephone and recommended that he come to the emergency room for further evaluation. By the time he came to the emergency room his initial EKG on 12/27/161943 revealed sinus tachycardia 102 bpm with T-wave inversions noted in the high lateral leads I and aVL. He received IV and then oral metoprolol with subsequent resolution of the tachycardia. Review of telemetry reveals continued sinus rhythm until a very short cinthya of narrow complex tachycardia on 12/28/16 at 1: 41 AM with telemetry findings of a 10 beat run of either atrial tachycardia or more likely atrial fibrillation. The patient states that he felt his heart "pounding "this occurred. He notes that he has been having occasional similar symptoms to this. The patient had been placed on heparin overnight for stroke prophylaxis. And has received 2 doses of metoprolol tartrate 25 mg thus far 1 last night and again this morning. History PAST MEDICAL HISTORY: 1. Diagnosed with type 2 diabetes mellitus approximately 10 years ago 2. Hypertension 3. Dyslipidemia 4. Diabetic ulcer of the right great toe which required amputation and had been seen by vascular surgery in [place] with a lower extremity angiogram having been performed in 2016 with small vessel distal disease but nothing major and the lower extremity vessels otherwise and therefore neurovascular duration procedure is necessary 5. History of spinal surgery for spinal stenosis PAST SURGICAL HISTORY: 1. Past laminectomy surgeries 3 2. Amputation of the right great toe 02/21/16 FAMILY HISTORY: Mother alive with history of atrial fibrillation Father: at age 70 with history of CAD, [place], CABG, of lung cancer Siblings: Brotherheart murmur, had heart valve surgery SOCIAL HISTORY: The patient is , his spouse is name Yelena. They've 3 children. 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 He is a former smoker having smoked 2 packs per day for 25 years. He quit in 2008 Review Of Systems See above for pertinent positives & negatives. A total of 10 systems reviewed and were otherwise negative. Allergies Coded Allergies: No Known Allergies (Unverified , 10/17/16) Medications Reported Home Medications Medications Dose Route/Sig Max Daily Dose Days Date Category Vitamin B-12 (Cyanocobalamin) 1,000 Mcg Tab 2,000 Mcg PO DAILY 12/01/16 Reported Glucophage (Metformin Hcl) 1,000 Mg Tab 1,000 Mg PO BID 12/01/16 Reported Vibramycin (Doxycycline Hyclate) 50 Mg Cap 2 Cap PO BID 30 12/01/16 Reported Levitra (Vardenafil HCl) 20 Mg Tab 20 Mg PO DIRECTED 12/01/16 Reported Glucotrol (Glipizide) 10 Mg Tab 10 Mg PO BID 12/01/16 Reported Tylenol (Acetaminophen) 500 Mg Tab 1,000 Mg PO Q8 PRN 12/01/16 Reported Januvia (Sitagliptin Phosphate) 100 Mg Tab 100 Mg PO DAILY 12/01/16 Reported Prilosec (Omeprazole) 20 Mg Cap 20 Mg PO DAILY 12/01/16 Reported Hctz (Hydrochlorothiazide) 25 Mg Tab 25 Mg PO DAILY 12/01/16 Reported Lipitor (Atorvastatin Calcium) 40 Mg Tab 40 Mg PO DAILY 12/01/16 Reported Zoloft (Sertraline HCl) 50 Mg Tab 50 Mg PO DAILY 12/01/16 Reported Norvasc (Amlodipine Besylate) 10 Mg Tab 10 Mg PO DAILY 12/01/16 Reported Cozaar (Losartan Potassium) 100 Mg Tab 1 Tab PO DAILY 90 12/01/16 Reported Lyrica (Pregabalin) 50 Mg Cap 50 Mg PO TID 12/01/16 Reported Robaxin (Methocarbamol) 500 Mg Tab 2 Tabs PO TID 12/01/16 Reported Aspirin Ec (Aspirin) 81 Mg Tab 81 Mg PO DAILY 12/01/16 Reported Cardura (Doxazosin Mesylate) 2 Mg Tab 1 Mg PO DAILY 12/01/16 Reported Ultram (Tramadol HCl) 50 Mg Tab 50 Mg PO Q6H PRN 12/01/16 Reported Zofran Odt (Ondansetron HCl) 4 Mg Tab 4 Mg SL Q8 PRN 12/01/16 Reported Plavix (Clopidogrel Bisulfate) 75 Mg Tab 75 Mg PO DAILY 12/01/16 Reported Meclizine Hcl 25 Mg Tab 1 Tab PO TID PRN 10 12/01/16 Reported Physical Exam Vital Signs (Last 8hrs): Last 8 Hrs Date Time Temp Pulse Resp B/P Pulse Ox O2 Delivery O2 Flow Rate FiO2 12/28/16 08:06 36.3 82 18 154/94 93 Room Air 12/28/16 08:00 Room Air 12/28/16 04:20 36.3 76 18 144/96 93 Room Air 12/28/16 04:00 Room Air General Appearance: Alert and Oriented x3. NAD. Head: Normocephalic Atraumatic. Eyes: PERRLA, EOMI, conjunctiva and sclera clear Neck: Supple. No carotid bruits noted. No JVD. No HJD. Respiratory: Breath sounds clear to auscultation bilaterally. No w/r/r. Cardiovascular: Reg rate and rhythm. S1 and S2 noted. No murmurs, rubs, gallops. PMI non displace. Abdomen: Normal bowel sounds, soft nontender. no abdominal bruits. Extremities: No edema, no clubbing or cyanosis. distal pulses 2/4 bilaterally. Neuro: No focal deficits. Psychiatric: Normal affect. Data Last Resulted 12/28/16 06:03 Red Blood Count 4.61, Mean Corpuscular Volume 84.4, Mean Corpuscular Hemoglobin 29.9, Mean Corpuscular Hemoglobin Concent 35.5, Mean Platelet Volume 10.3, Neutrophils (%) (Auto) 49.8, Lymphocytes (%) (Auto) 41.3, Monocytes (%) (Auto) 6.7, Eosinophils (%) (Auto) 2.0, Basophils (%) (Auto) 0.2, Neutrophils # (Auto) 2.24, Lymphocytes # (Auto) 1.86, Monocytes # (Auto) 0.30, Eosinophils # (Auto) 0.09, Basophils # (Auto) 0.01 Last Resulted 12/28/16 06:03 Past 24 Hours Test 12/27/16 19:50 Range/Units Prothromb Time International Ratio 1.0 0.9-1.1 Prothrombin Time 10.3 9.0-12.0 SECONDS Troponin I < 0.015 0-0.045 ng/ml EKG on presentation 12/27/16 and 1943 revealed sinus tachycardia 10 2 bpm, with new T-wave inversions in the high lateral leads I and aVL. Repeat EKG this morning is similar to his prior baseline from last month with normal sinus rhythm and no ST-T wave changes. Telemetry reviewed: As noted in history of present illness Assessment & Plan Impression: 49-year-old male 1. Newly recognized paroxysmal atrial fibrillation with associated palpitations 2. History of cerebellar stroke fiber, 2016 3. Hypertension, blood pressure above goal today 4. Long-standing history of type 2 diabetes mellitus, with macrovascular complications requiring amputation of the right great toe after a poorly healing diabetic wound 5. Dyslipidemia 6. Kidney mass, outpatient workup in process. Recommendations: Regarding stroke prophylaxis, I recommend discontinuation of clopidogrel. Continue low-dose aspirin as he is at risk for myocardial infarction and I think that the role of aspirin in this case is for prevention of myocardial infarction and a high risk patient with a strong family history of ischemic heart disease and with underlying diabetes. I recommend starting anticoagulation first troponin prophylaxis for atrial fibrillation. At this time will discontinue heparin and transition him to Eliquis 5 mg BID. I called his personal outpatient pharmacy this morning and his [id number] cost for this medication is $3 per month and the patient is agreeable to this. The patient's heparin is to be discontinued at the same time that his first dose of Eliquis is initiated. Regarding rhythm control, recommend discontinuation of metoprolol tartrate. He has been on no beta johanna chronically. We'll transition him to metoprolol succinate 100 mg by mouth daily. Although his blood pressure is a little bit above goal today, I'm hesitant to make any other additional blood pressure medication changes at this time as I'm concerned of potential side effects. Outpatient cardiology follow-up will be scheduled in 2-4 weeks. If patient has recurrent prolonged atrial fibrillation episodes or is significantly symptomatic on metoprolol, would consider transitioned to sotalol as next step. If sotalol was initiated, the patient's Zofran would have to be discontinued. Regarding workup of his edema has. The patient has no gross hematuria. I think it is reasonable for him to start anticoagulation especially given his potential risk of recurrent stroke. Patient was counseled to notify our office should he have gross hematuria. Recommend continuing with planned urology workup. If biopsy is necessary, would plan to hold liquids with last dose in the evening 2 days prior to surgery. Spinal anesthesia is felt to be necessary , would have his last dose taken in the evening 3 days prior to procedure. Summary of orders: 1. Discontinue heparin infusion at the same time at first dose of Eliquis is administered. 2. Discharge patient on Eliqis 5 mg by mouth two times per day. 3. Discharge patient on metoprolol succinate 100 mg daily. 4. Continue 30 wireless monitor, to determine frequency of AF after metoprolol started. 5. Discontinue Clopidogrel. 6. Continue aspirin 81 mg daily. Griffin Amaya,
--- NOTE | 2016-12-28 11:14 | Progress Note ---
Internal Med Progress Note Date of Service: Dec 28, 2016. Provider Documentation: SUBJECTIVE: The patient was seen and examined Has had some palpitation last night Denies any neurologic symptoms No other symptoms OBJECTIVE: Vital Signs-as noted below Exam: General-No distress at rest Eyes-normal ENT-normal Neck-Supple Lungs-clear to auscultate bilaterally Heart-Regular,no murmur appreciated Abdomen-Benign,no masses,bowel sound present Extremities-No edema Neuro-AAOx3 No focal neuro deficit Lab data as noted below. ASSESSMENT & PLAN: Paroxysmal atrial fibrillation new onset captured on out patient Holter monitor; Initial sinus tachycardia upon arrival in the ER improved after IV BB admin Appreciate Cardiology input One episode of AF last night-no electrolytes abnormality Will be discharged today History cerebellar CVA from September 2016 Possibly embolic with finding of PAF. Will start Eliquis and stop Plavix Hypertension, slightly elevated. Expected to improve DM2, on oral medications suboptimal control as of recent, outpx HgA1c (8.5 as of October 2016) Basal insulin, ISS BG goal 140-180 carb count coverage indicated for suboptimal blood sugar control. Hyperlipidemia on statin therapy. Rosacea-on Doxycycline Past tobacco abuse. DVT prophylaxis. Heparin. Full code. DISPOSITION Discharge today Vital Signs: Date Time Temp Pulse Resp B/P Pulse Ox O2 Delivery O2 Flow Rate FiO2 12/28/16 08:06 36.3 82 18 154/94 93 Room Air 12/28/16 08:00 Room Air 12/28/16 04:20 36.3 76 18 144/96 93 Room Air 12/28/16 04:00 Room Air 12/28/16 00:01 Room Air 12/27/16 23:30 36.8 89 18 163/94 94 Room Air 12/27/16 23:30 36.8 89 18 163/94 94 Room Air 12/27/16 22:59 92 16 153/90 94 12/27/16 22:27 94 16 157/95 98 Room Air 12/27/16 20:20 Nasal Cannula 2.0 12/27/16 20:18 112 12/27/16 20:14 110 16 157/95 97 12/27/16 20:13 102 157/95 12/27/16 20:07 97 Room Air 12/27/16 19:21 36.7 117 20 162/112 93 Room Air Lab Results: Results Past 24 Hours Test 12/27/16 19:50 12/27/16 23:37 12/28/16 06:03 12/28/16 06:48 Range/Units White Blood Count 5.14 4.50 4.8-10.8 K/uL Red Blood Count 4.82 4.61 4.7-6.1 M/uL Hemoglobin 14.6 13.8 14.0-18.0 g/dL Hematocrit 41.1 38.9 42-52 % Mean Corpuscular Volume 85.3 84.4 80-100 fL Mean Corpuscular Hemoglobin 30.3 29.9 25-34 pg Mean Corpuscular Hemoglobin Concent 35.5 35.5 32-36 g/dl RDW Standard Deviation 41.3 40.8 36.4-46.3 fL RDW Coefficient of Variation 13.4 13.4 11.5-14.5 % Platelet Count 166 144 130-400 K/uL Mean Platelet Volume 10.5 10.3 7.4-10.4 fL Prothrombin Time 10.3 9.0-12.0 SECONDS Prothromb Time International Ratio 1.0 0.9-1.1 Activated Partial Thromboplast Time 25.3 29.3 21.0-31.0 SECONDS Partial Thromboplastin Ratio 1.0 1.1 Sodium Level 136 137 136-145 mmol/L Potassium Level 3.7 3.9 3.5-5.1 mmol/L Chloride Level 96 102 98-107 mmol/L Carbon Dioxide Level 26 30 21-32 mmol/L Anion Gap 14.0 5.0 3-11 mmol/L Blood Urea Nitrogen 19 13 7-18 mg/dl Creatinine 1.20 0.81 0.60-1.40 mg/dl Est Creatinine Clear Calc Drug Dose 99.9 160.0 ml/min Estimated GFR () 83.5 123.5 Estimated GFR (Non- 72.1 106.6 BUN/Creatinine Ratio 15.4 15.8 10-20 Random Glucose 459 229 70-99 mg/dl Calcium Level 8.8 8.2 8.5-10.1 mg/dl Magnesium Level 1.3 2.1 1.8-2.4 mg/dl Total Bilirubin 0.6 0.2-1 mg/dl Aspartate Amino Transf (AST/SGOT) 26 15-37 U/L Alanine Aminotransferase (ALT/SGPT) 59 12-78 U/L Alkaline Phosphatase 230 45-117 U/L Troponin I < 0.015 0-0.045 ng/ml Total Protein 7.1 6.4-8.2 gm/dl Albumin 3.7 3.4-5.0 gm/dl Globulin 3.4 2.5-4.0 gm/dl Albumin/Globulin Ratio 1.1 0.9-2 Beta-Hydroxybutyric Acid 2.02 0.2-2.81 mg/dL Thyroid Stimulating Hormone (TSH) 1.480 0.300-4.500 uIu/ml Bedside Glucose 256 220 70-99 mg/dl Neutrophils (%) (Auto) 49.8 % Lymphocytes (%) (Auto) 41.3 % Monocytes (%) (Auto) 6.7 % Eosinophils (%) (Auto) 2.0 % Basophils (%) (Auto) 0.2 % Neutrophils # (Auto) 2.24 1.4-6.5 K/uL Lymphocytes # (Auto) 1.86 1.2-3.4 K/uL Monocytes # (Auto) 0.30 0.11-0.59 K/uL Eosinophils # (Auto) 0.09 0-0.5 K/uL Basophils # (Auto) 0.01 0-0.2 K/uL Immature Granulocyte % (Auto) 0.0 % Immature Granulocyte # (Auto) 0.00 0.00-0.02 K/uL
[2016-12-28 12:11] VITALS: BP 150/98; PULSE 73; TEMP 36.6; O2SAT 92
[2016-12-28] MEDS ORDERED: APIX1TAB3 PO (13:09)
[2016-12-28] MEDS ORDERED: METO-479 PO (13:09)
--- NOTE | 2016-12-28 13:11 | Discharge Instructions ---
Discharge Instructions Date of Service Dec 28, 2016. Admission Reason for Admission: Rapid Atrial Fibrillation Discharge Discharge Diagnosis / Problem: PAF Discharge Goals Goal(s): Prevent Disease Progression Activity Recommendations Activity Limitations: resume your previous activity . Instructions / Follow-Up Instructions / Follow-Up Dr Colmenares on 01/01/17 on 2:05 PM.Cardiology will call for appointment Current Hospital Diet Patient's current hospital diet: Diabetes Type 2 Diet, AHA Diet (Heart Healthy) Discharge Diet Recommended Diet: AHA Diet (Heart Healthy), Diabetes Type 2 Diet Pending Studies Studies pending at discharge: no Medical Emergencies . Who to Call and When: Medical Emergencies: If at any time you feel your situation is an emergency, please call 911 immediately. . Non-Emergent Contact Non-Emergency issues call your: Primary Care Provider . Past History Medical & Surgical History: (1) Tachycardia (2) Rapid atrial fibrillation (3) Atrial fibrillation (4) HTN (hypertension) (5) Diabetes . "Provider Documentation" section prepared by Deuce Hua. . VTE Core Measure Inpt VTE Proph given/why not?: Unfractionated heparin SQ (Equilis)
[2016-12-28 13:20] VITALS: BP 150/98; PULSE 73; TEMP 36.6; O2SAT 92
--- NOTE | 2016-12-28 16:17 | Discharge Summary ---
Discharge Summary Date of Service Dec 28, 2016. Discharge Summary Admission Date: Dec 27, 2016 at 21:57 Discharge Date: Dec 28, 2016 Principal Diagnosis: Paroxysmal Atrial Fibrillation,h/o stroke Secondary Diagnoses/Problems: Please see H&P and Hospital progress note Consultations: Cardiology Medication Reconciliation New Medications: Apixaban (Eliquis) 5 Mg Tab 5 MG PO BID, #60 TAB Metoprolol Succinate (Toprol Xl) 100 Mg Tab 1 TAB PO DAILY for 30 Days, #30 TAB Continued Medications: Acetaminophen (Tylenol) 500 Mg Tab 1000 MG PO Q8 PRN for Pain, TAB Amlodipine (Norvasc) 10 Mg Tab 10 MG PO DAILY, TAB Aspirin (Aspirin Ec) 81 Mg Tab 81 MG PO DAILY Atorvastatin (Lipitor) 40 Mg Tab 40 MG PO DAILY, TAB Cyanocobalamin (Vitamin B-12) 1,000 Mcg Tab 2000 MCG PO DAILY, TAB Doxazosin Mesylate (Cardura) 2 Mg Tab 1 MG PO DAILY, TAB Doxycycline Hyclate (Vibramycin) 50 Mg Cap 2 CAP PO BID for 30 Days, #120 CAP 1 Refill Glipizide (Glucotrol) 10 Mg Tab 10 MG PO BID, TAB Losartan Potassium (Cozaar) 100 Mg Tab 1 TAB PO DAILY for 90 Days, #90 TAB 3 Refills Meclizine Hcl (Meclizine Hcl) 25 Mg Tab 1 TAB PO TID PRN for Dizziness or Vertigo for 10 Days, #30 TAB Metformin Hcl (Glucophage) 1,000 Mg Tab 1000 MG PO BID, TAB Methocarbamol (Robaxin) 500 Mg Tab 2 TABS PO TID, TAB Omeprazole (Prilosec) 20 Mg Cap 20 MG PO DAILY, CAP Ondasetron Odt (Zofran Odt) 4 Mg Tab 4 MG SL Q8 PRN for Nausea, #6 TAB Pregabalin (Lyrica) 50 Mg Cap 50 MG PO TID, CAP Sertraline (Zoloft) 50 Mg Tab 50 MG PO DAILY, TAB Sitagliptin Phosphate (Januvia) 100 Mg Tab 100 MG PO DAILY, TAB Tramadol (Ultram) 50 Mg Tab 50 MG PO Q6H PRN for Pain, TAB Vardenafil (Levitra) 20 Mg Tab 20 MG PO DIRECTED, TAB Discontinued Medications: Clopidogrel (Plavix) 75 Mg Tab 75 MG PO DAILY, TAB Hydrochlorothiazide (Hctz) 25 Mg Tab 25 MG PO DAILY, TAB Admission Information HPI (per Admitting provider): DATE OF ADMISSION: 12/27/2016 PRIMARY CARE DOCTOR: Papa Colmenares DO Hx obtained from px and records. CHIEF COMPLAINT: A-Fib on the Holter, sent by the doctor HISTORY OF PRESENT ILLNESS: Medical history is significant for cerebellar CVA, hypertension, hyperlipidemia , PVD, DM2 on oral meds, rosacea, and past tobacco abuse. In September 2016, the patient had vertigo-like symptoms. CT scan at [facility] suggested a posterior distribution stroke. Out[place] [facility] [place] consultation last October 2016. Patient was started on ASA and Plavix for stroke prevention. MRI/MRA showed a subacute infarct within the cerebellar hemispheres. Contemplated NGOZI by [facility] [place] Cardiology to rule out cardioembolic source last 12/02/16 aborted due to vomiting. A TTE done at that time showed normal LVEF of 65-70%. Thirty day Holter monitor ordered by neurologist as well. Today, patient's neurologist notified by [employer] ([employer]) of A-Fib event of 170 beats per minute. Patient's neurologist advised px to proceed to the Emergency Room. PX denies cp or sob. Occasional palpitations. At the Emergency Room, the patient noted to be in sinus tachycardia. He received Lopressor 10 mg IV. Blood sugars was noted to be 400. He received regular insulin IV as well. MEDICAL HISTORY: As above. Home BGs usually 200s. SURGERIES: Back surgeries and some toe amputation. HOME MEDICATIONS: Include; aspirin, Plavix, Lipitor, Zoloft, Ultram, Levitra, Glucophage, Robaxin, Prilosec, Zofran, Cardura, Vibramycin, Glucotrol, HCTZ, Cozaar, meclizine, Tylenol, Norvasc, Plavix and vitamin B12. ALLERGIES: No drug allergies. FAMILY HISTORY: heart dse PERSONAL AND SOCIAL HISTORY: Past tobacco abuse, no ETOH abuse, disabled REVIEW OF SYSTEMS: As per HPI, all other ROS negative. PHYSICAL EXAMINATION: VITAL SIGNS: Blood pressure was noted to be 162/112 later 150/90, pulse rate 117 later 92, RR 16, temperature 36.6, sats 98 on room air. GENERAL: Noted to obese, looks older for stated age SKIN: Normal color. HEENT: Partial alopecia. [place] palpebral conjuctivae. Dry mucosa. NECK: Short neck. LUNGS: Decreased breath sounds. HEART: Tachycardic. ABDOMEN: Some distention, non- tender. EXTREMITIES: no edema. no tenderness NEUROLOGIC: No gross focality. LABORATORIES: Hemoglobin 13.6 hematocrit 41, white cell count 10, platelets 166. Sodium 137, K 3.7, chloride 96, CO2 26, BUN 90, creatinine 1.2, glucose 459, anion gap was 14. trop 0, Ketones are still pending. EKG, sinus tachycardia, some T-wave abnormalities in the lateral leads. Chest x-ray showed no active disease. ASSESSMENT: 1. Paroxysmal atrial fibrillation new onset captured on outpx Holter monitor; Initial sinus tachycardia upon arrival in the ER improved after IV BB admin may be related to low electrolytes, hyperglycemia, mild clinical dehydration 2. history cerebellar CVA from September 2016 possibly embolic with finding of PAF. 3. Hypertension, slightly elevated. 4. DM2, on oral medications suboptimal control as of recent, outpx HgA1c (8.5 as of October 2016) 5. Hyperlipidemia on statin therapy. 6. past tobacco abuse. PLAN: PCU replace electrolytes, IV fluids. PO Lopressor for rate control, IV heparin for thromboembolic prevention for PAF , continue home ASA/DC Plavix - as per discussion with patient's replenishment merchandising associate, Dr. Amaya. Further eval/mx of PAF as per Cardiology Basal insulin, ISS BG goal 140-180 carb count coverage indicated for suboptimal blood sugar control. DVT prophylaxis. Heparin. Full code. Hospital Course Paroxysmal atrial fibrillation new onset captured on out patient Holter monitor; Initial sinus tachycardia upon arrival in the ER improved after IV BB admin Appreciate Cardiology input One episode of AF last night-no electrolytes abnormality Will be discharged today History cerebellar CVA from September 2016 Possibly embolic with finding of PAF. Will start Eliquis and stop Plavix Hypertension, slightly elevated. Expected to improve DM2, on oral medications suboptimal control as of recent, outpx HgA1c (8.5 as of October 2016) Basal insulin, ISS BG goal 140-180 carb count coverage indicated for suboptimal blood sugar control. Hyperlipidemia on statin therapy. Rosacea-on Doxycycline Past tobacco abuse. DVT prophylaxis. Heparin. Full code. DISPOSITION Discharge today Total time spent on discharge =35 minutes This includes examination of the patient, discharge planning, medication reconciliation, and communication with other providers. Discharge Instructions Date of Service Dec 28, 2016. Admission Reason for Admission: Rapid Atrial Fibrillation Discharge Discharge Diagnosis / Problem: PAF Discharge Goals Goal(s): Prevent Disease Progression Activity Recommendations Activity Limitations: resume your previous activity . Instructions / Follow-Up Instructions / Follow-Up Dr Colmenares on 01/01/17 on 2:05 PM.Cardiology will call for appointment Current Hospital Diet Patient's current hospital diet: Diabetes Type 2 Diet, AHA Diet (Heart Healthy) Discharge Diet Recommended Diet: AHA Diet (Heart Healthy), Diabetes Type 2 Diet Pending Studies Studies pending at discharge: no Medical Emergencies . Who to Call and When: Medical Emergencies: If at any time you feel your situation is an emergency, please call 911 immediately. . Non-Emergent Contact Non-Emergency issues call your: Primary Care Provider . Past History Medical & Surgical History: (1) Tachycardia (2) Rapid atrial fibrillation (3) Atrial fibrillation (4) HTN (hypertension) (5) Diabetes . "Provider Documentation" section prepared by Deuce Hua. . VTE Core Measure Inpt VTE Proph given/why not?: Unfractionated heparin SQ (Equilis) <Electronically signed by Deuce Hua M.D.> Additional Copies To Papa Colmenares D.O.
[2016-12-28] MEDS ORDERED: ATORVASTATIN 20 MG TAB PO SCH (21:00)
[2016-12-28] MEDS ORDERED: SERTRALINE HCL 50 MG TAB PO SCH (21:00)
[2016-12-28] MEDS ORDERED: APIXABAN 2.5 MG TAB PO SCH (21:00)
[2016-12-29] MEDS ORDERED: METOPROLOL SUCC 50MG EXT REL TAB PO SCH (09:00)
== END 2016-12-28 13:50 | disposition home or self-care (01) | DRG 310 ==
LOC: ENRESERVTM → ENRESERVDT → C.EDB 19:15 → C.2T 21:57
PROVIDERS: ADMIT Internal Medicine; ATTEND Internal Medicine
DX: I48.91 Unspecified atrial fibrillation (principal); I10 Essential (primary) hypertension; L71.9 Rosacea, unspecified; E11.9 Type 2 diabetes mellitus without complications; E78.5 Hyperlipidemia, unspecified; Z89.421 Acquired absence of other right toe(s); Z82.49 Family history of ischemic heart disease and other diseases of the circulatory system; Z86.73 Personal history of transient ischemic attack (TIA), and cerebral infarction without residual deficits; Z87.891 Personal history of nicotine dependence; Z79.02 Long term (current) use of antithrombotics/antiplatelets; I48.0 Paroxysmal atrial fibrillation; Z83.3 Family history of diabetes mellitus

== ENCOUNTER → 2018-04-09 | Day surgery (SDC) | payer OTHER ==
--- NOTE | 2018-04-08 15:31 | History and Physical ---
History & Physical Date & Time of Service: Apr 08, 2018 at 15:20 Chief Complaint: Exertional shortness of breath, recent abnormal nuclear stress test. Primary Care Physician: Papa Colmenares D.O. History of Present Illness Kris Haney is a 47-year-old male with recently been seen as an outpatient in cardiology follow-up and described exertional shortness of breath in addition to palpitations. A nuclear stress test was performed on 03/17/18 that revealed findings of an RCA territory infarction with kiran-infarct ischemia. Moderate left ventricular hypokinesis was noted with an ejection fraction of 48% sinus rhythm was noted throughout the study without recurrence of atrial fibrillation. Given his history of type 2 diabetes mellitus, hypertension, dyslipidemia and cerebrovascular disease, cardiac catheterization is recommended for further evaluation of his exertional shortness of breath as a possible anginal equivalent. His cardiac history dates back to early 2016 when he had presented with symptoms of dizziness and was diagnosed with a cerebellar stroke. A follow-up mobile cardiac outpatient ekg monitor tech feels episodes of atrial fibrillation with rapid ventricular response. He was subsequently anticoagulated with Eliquis. At the time his initial hospitalization for the atrial fibrillation is placed on metoprolol succinate 100 mg daily. Follow-up in Jan, 2017 he was transitioned off of amlodipine and onto diltiazem for further heart rate management. The diltiazem was subsequently increased to 240 mg daily by his PCP in May 2017 and he remains on that dose. In November, a transesophageal echocardiogram had been attempted but could not be completed as the patient had vomited when the probe was placed in the esophagus and therefore the procedure was canceled. His follow-up transthoracic echocardiogram was felt to be of high technical quality and revealed no cardiac source of embolism and since he had been diagnosed with atrial fibrillation in the interim, repeat transesophageal echocardiogram was not attempted. Past Medical/Surgical History Medical Problems: (1) Atrial fibrillation (2) Diabetes (3) HTN (hypertension) (4) Hyperglycemia (5) Kidney disease (6) paroxysmal atrial fibrillation (7) Stroke (8) Tachycardia (9) Vertigo Family History Diabetes mellitus FH: heart disease Hypertension Kidney disease Mother with diabetes and heart valve replacement Father with history of heart disease, details unknown, also a heavy smoker. Brother has a history of apparent heart valve replacement at the age of 43 Social History The patient is a former cigarette smoker, having smoked 2 packs per day for 25 years and quit in 2008 He is disabled due to his medical problems Smoking Status: Never Smoker Marital Status: Occupational Status: unemployed Allergies Coded Allergies: No Known Allergies (Unverified , 10/17/16) Home Medications Scheduled Apixaban (Eliquis), 5 MG PO BID Aspirin (Aspirin Ec), 81 MG PO DAILY Atorvastatin (Lipitor), 40 MG PO DAILY Cyanocobalamin (Vitamin B-12), 2,000 MCG PO DAILY Diltiazem Hcl Coated Beads (Diltiazem Cd), 1 CAP PO DAILY Doxazosin Mesylate (Cardura), 1 MG PO DAILY Doxycycline Hyclate (Vibramycin), 2 CAP PO DAILY Glipizide (Glucotrol), 20 MG PO BID Hydrochlorothiazide (Hctz), 1 TAB PO DAILY Linagliptin (Tradjenta), 1 TAB PO DAILY Losartan Potassium (Cozaar), 1 TAB PO DAILY Metformin Hcl (Glucophage), 1,000 MG PO BID Metoprolol Succinate (Toprol Xl), 1 TAB PO DAILY Multiple Vitamin (Multivitamin), 1 TAB PO DAILY Omeprazole (Prilosec), 20 MG PO DAILY Pregabalin (Lyrica), 50 MG PO TID Probiotic Product (Probiotic), 1 CAP PO DAILY Sennosides-Docusate Sodium (Senna Plus), 2 TABS PO BID Sertraline (Zoloft), 100 MG PO DAILY Vardenafil (Levitra), 20 MG PO DIRECTED Scheduled PRN Acetaminophen (Tylenol), 1,000 MG PO Q8 PRN for Pain Meclizine Hcl (Meclizine Hcl), 1 TAB PO TID PRN for Dizziness or Vertigo Ondasetron Odt (Zofran Odt), 4 MG SL Q8 PRN for Nausea Oxycodone Ir (Roxicodone Ir), 5 MG PO Q4H PRN for Severe Pain Tramadol (Ultram), 50 MG PO Q6H PRN for Pain Physical Exam Vital Signs Last Vital Signs Documentation Date Time Temp Pulse Resp B/P (MAP) Pulse Ox O2 Delivery O2 Flow Rate FiO2 04/09/18 07:02 36.9 89 16 173/99 (123) 96 Room Air General Appearance: no apparent distress Head: normocephalic, atraumatic Neck: supple, thyroid normal Cardiovascular: regular rate, rhythm, no edema, no gallop Abdomen/GI: non tender, soft Extremities/Musculoskelatal: normal inspection, no calf tenderness Neurologic/Psych: alert, normal mood/affect, oriented x 3, + pertinent finding (Difficulty with gait, walks with a cane) Diagnostics Laboratory Results Laboratory studies performed 04/05/18: Hemoglobin 14.5 Hematocrit 41.4 Platelet count 174 INR 1.1 PTT 29 seconds Hemoglobin A1c 8.9% Sodium 137 Potassium 3.7 Chloride 93 BUN 13 Creatinine 0.9 GFR greater than 60 mL/min/m Glucose 260 mg/dL Outpatient EKG performed 04/06/18 revealed sinus rhythm at 82 bpm with frequent PVCs, age-indeterminate inferior infarction pattern. Compared to the prior tracing from April 2017 PVCs now present Impression Assessment and Plan Impression: 47-year-old male 1. Recent exertional shortness of breath, abnormal nuclear stress test 2. Paroxysmal atrial fibrillation with stroke had occurred prior to being placed on anticoagulation, presumed cardioembolic etiology, no recurrence of stroke since been placed on Eliquis 5 mg twice daily 3. Long-standing history of type 2 diabetes mellitus 4. Former cigarette smoker 5. Dyslipidemia Plan: Given the patient's symptoms of exertional shortness of breath, abnormality on stress testing, and cardiac risk factors as outlined above recommend proceeding with invasive coronary angiography for further evaluation. The patient had been counseled to hold his Eliquis, he been directed to take his last dose of Eliquis on the evening 2 days prior to the procedure and therefore no Eliquis the day before the procedure where the day of the procedure.
[~2018-04-09] VITALS: Ht 185.4 cm; Wt 130.0 kg
[~2018-04-09] MED LIST changes: +ADENOSINE IV SOLN 3 MG/ML 20 ML VIAL ONE; -AMLO-114 PO; +APIX1TAB3 PO; -CLOP1TAB15 PO; +DILT-203 PO; +FENTANYL CITRATE INJ 50 MCG/1 ML 2 ML VIAL ONE; +HEPARIN SOD (PORCINE) 1000 UNIT/ML 10 ML VIAL ONE; +LINA1TAB PO; +LPT40 PO; -METH500T37 PO; +METO-479 PO; +MIDAZOLAM HCL 1 MG/ML 2ML VIAL ONE; +MISCCAP80 PO; +MULTTAB58 PO; +NITROGLYCERIN/D5W 100MCG/ML 20ML SYR ONE; +NiCARDipine HCL INJ 2.5 MG/ML 10 ML AMP ONE; +OXYC-90 PO; +SENN1TAB65 PO; -SITA100T3 PO
[2018-04-09 07:02] VITALS: BP 173/99; PULSE 89; TEMP 36.9; O2SAT 96; Ht 185.4 cm; Wt 130.0 kg
--- NOTE | 2018-04-09 08:11 | History & Physical Bridge Note ---
H&P Re-Evaluation Bridge Note: I have examined the patient, reviewed the History & Physical and in the interval since the performance of the History & Physical I have noted the following changes of clinical significance: No changes noted
--- NOTE | 2018-04-09 08:12 | Pre Sedation Assessment ---
Pre Sedation Assessment General Date of Sedation: Apr 09, 2018. Vital Signs Past 12 Hours Date Time Temp Pulse Resp B/P (MAP) Pulse Ox O2 Delivery O2 Flow Rate FiO2 04/09/18 07:02 36.9 89 16 173/99 (123) 96 Room Air Review Cardiovascular: regular rate, rhythm, no edema, no gallop, no murmur Pre-Sedation Airway Assessment Smoking Status: Former Smoker Hx of Sleep Apnea: Yes Short Thick Neck: Yes Thyro-mental Distance: < or =3 Finger Breadths Oral Cavity: Dental Abnormalities Mallampati Classification: Class III ASA Classification: Class III NPO Status Date of Last Intake of Fluids: Apr 08, 2018 Time of Last Intake of Fluids: 2129 Date of Last Intake of Solids: Apr 08, 2018 Time of Last Intake of Solids: 2129 Procedure Planning Contraindications for Sedation: None Current Medications Reviewed: Yes Notes The planned sedation has been discussed with the patient. Informed Consent was obtained. I have identified the patient, determined the appropriateness of sedation and have assessed the patient immediately prior to the procedure. All medicine(s) and interventions are by my order.
--- NOTE | 2018-04-09 09:35 | Post Sedation Assessment ---
Post Sedation Assessment General Date of Sedation Apr 09, 2018. Vital Signs: Vital Signs Past 12 Hours Date Time Temp Pulse Resp B/P (MAP) Pulse Ox O2 Delivery O2 Flow Rate FiO2 04/09/18 07:02 36.9 89 16 173/99 (123) 96 Room Air Post Sedation Plan On clinical assessment, the patient appears to have tolerated the sedation without complications. Patient is recovering as anticipated. Patient will continue to be monitored by nursing and may be discharged when sedation discharge criteria are met per below protocol. Upon Completions of procedure and additional 15 minutes continue every 5 minute vital signs and the P.A.R. score; then discharge to a Phase I or Fast Track to Phase II per the following guidelines: * Discharge Patient to appropriate Phase II area if PAR is 8 or greater or return to pre- procedure baseline. The post - procedure orders will be as directed. * If PAR score is less than 8 or not return to pre-procedure baseline then patient will follow Phase I monitoring till PAR is reached for Phase II. The Phase I may be done in procedure room or may call to secure a Phase I area. * If naloxone or flumazenil are used for reversal, hold in Phase I for an additional 60 -120 minutes before discharge to Phase II. Please call the Sedation Physician to re-evaluate and complete post-note for discharge to Phase II area. Do NOT discharge from procedure sedation or Phase 1 until post- sedation evaluation note is complete by procedure /sedation MD Sedation Discharge Instructions to be given to the patient at discharge to home.
--- NOTE | 2018-04-09 09:53 | Cardiac Catheterization ---
Procedure Note Procedure Date Apr 09, 2018. Pre-Procedure Diagnosis Angina, Positive Stress Test, Cardiomyopathy AUC Score 8 Post-Procedure Diagnosis Severe CAD Procedure(s) Performed Coronary Angiography, Left Heart Cath Fiscal Technician Dr. 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 PSYCHOLOGY TEACHER Estimated Blood Loss 8cc Medication(s) Fentanyl, Heparin, Nicardipine, Nitroglycerin, Versed, Lidocaine 1% Summary of Findings 100% distal RCA occlusion with RPL branches filling via left to right collaterals 70% proximal RPDA (small vessel) Intermediate proximal LAD stenosis, up to 50% in limited views due to vessel overlap Hemodynamics Rest Ao: 109/89/68 Final Ao: 148/101/74 LV: 127/4/11 Recommendations management recommendations (FFR LAD, medical management of RCA MEAT LUGGER and RPDA stensosis) Specimens None Radiation Exposure (mGy) 2417 Contrast (mls) 120 Anesthesia Moderate sedation. Start 0830. End 0925. Sedation monitor. 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 ACC Data Cardiac Status Clinical evaluation leading to the procedure CAD Presntation: Stable angina, Positive Stress Test Anginal Classification: CCS II Heart Failure: No Cardiogenic Shock w/in 24Hrs: No Cardiac Arrest w/in 24Hrs: No Imaging studies past 6 months: Yes Stress studies past 6 months: Yes Stress Testing w/SPECT MPI: Yes - Positive, Risk/Extent of Ischemia (High) Coronary Anatomy Dominant: Right Left Main (% Stenosis): Proximal (20% taper) LAD (% Stenosis): Proximal (intermediate stenosis up to 50% in limited views due to vessel overlap), Distal (10%, mild luminal irregularities) D1 (% Stenosis): Ostial (large vessel, bifurcates proximally), Distal (10%, mild luminal irregularities) Circumflex (% Stenosis): Ostial (20%) RCA (% Stenosis): Proximal (30%), Mid (moderate diffuse luminal irregularities , 40%), Distal (100%, RPL vessels fill via left to right collaterals) R PDA (% Stenosis): Proximal (70%) Diagnostic Status: Elective Closure Device Percutaneous Entry Location: Radial Closure Device: Radial Band Intraprocedure Events Significant Dissection: No Perforation: No
--- NOTE | 2018-04-09 10:54 | Post Sedation Assessment ---
Post Sedation Assessment General Date of Sedation Apr 09, 2018. Vital Signs: Vital Signs Past 12 Hours Date Time Temp Pulse Resp B/P (MAP) Pulse Ox O2 Delivery O2 Flow Rate FiO2 04/09/18 10:30 70 16 146/80 (102) 96 Room Air 04/09/18 10:25 72 16 152/88 (109) 96 Room Air 04/09/18 10:10 75 16 126/78 (94) 96 Room Air 04/09/18 07:02 36.9 89 16 173/99 (123) 96 Room Air Post Procedure Recovery Score Activity: (2) Moves 4 extremities * Respiration: (2) Deep breath/cough Circulation: (2) +/-20% PreAnes Value Consciousness: (2) Fully Awake Oxygen Saturation: (2) > 92% On Room Air Post Anesthesia Score: 10 Discharge Sedation Level of Care: Fast Track Phase II Post Sedation Plan On clinical assessment, the patient appears to have tolerated the sedation without complications. Patient is recovering as anticipated. Patient will continue to be monitored by nursing and may be discharged when sedation discharge criteria are met per below protocol. Upon Completions of procedure and additional 15 minutes continue every 5 minute vital signs and the P.A.R. score; then discharge to a Phase I or Fast Track to Phase II per the following guidelines: * Discharge Patient to appropriate Phase II area if PAR is 8 or greater or return to pre- procedure baseline. The post - procedure orders will be as directed. * If PAR score is less than 8 or not return to pre-procedure baseline then patient will follow Phase I monitoring till PAR is reached for Phase II. The Phase I may be done in procedure room or may call to secure a Phase I area. * If naloxone or flumazenil are used for reversal, hold in Phase I for an additional 60 -120 minutes before discharge to Phase II. Please call the Sedation Physician to re-evaluate and complete post-note for discharge to Phase II area. Do NOT discharge from procedure sedation or Phase 1 until post- sedation evaluation note is complete by procedure /sedation MD Sedation Discharge Instructions to be given to the patient at discharge to home.
--- NOTE | 2018-04-09 11:03 | Cardiac Catheterization ---
Procedure Note Procedure Date Apr 09, 2018. Pre-Procedure Diagnosis Positive Stress Test AUC Score 7 Post-Procedure Diagnosis Moderate CAD Procedure(s) Performed Coronary Angiography, IVUS Patient Transport Orderly [place] Rn Access(s) Contino Estimated Blood Loss <10 Medication(s) Fentanyl, Heparin, Versed Summary of Findings -- IVUS ASSESSMENT OF MID LAD MODERATE DISEASE -- For full details of patient's coronary angiography please cath report dictated by Dr. Mendoza. Briefly, patient found to have multivessel disease including a moderate stenosis involving tortuous, mid LAD after take-off of large diagonal.. Decision to assess with FFR/IVUS. - LM cannulated with EBU 3.5 guide - Attempted to place FFR wire into distal LAD but unable to pass wire due to tortuosity and FFR procedure aborted - Whisper wire able to be placed into distal LAD - Mid LAD assessed with IVUS -- IVUS showed moderate, minimally calcified plaque involving proximal to mid LAD. Stenosis most severe in a focal area right after take-off large diagonal ( MLA 4.9 cm2, stenosis 56%). - post-procedure angiography revealed no complications. Summary: 1. Moderate non-obstructive coronary artery disease involving mid LAD (56% stenosis by IVUS). Recommendations: - Antianginal therapy and ASCVD risk factor modification per Dr. Mendoza. 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
--- NOTE | 2018-04-09 11:45 | Discharge Instructions ---
Discharge Instructions Procedure Procedure Date: Apr 09, 2018. Reason for Visit: Abn Nuclear Stress Test,Exertional Sob. Discharge Discharge Date: Apr 09, 2018. Discharge Diagnosis: 100% occluded distal right coronary artery 56% LAD stenosis Last Recorded Wt (Kilograms): 130 Anesthesia Post Anesthesia Instructions: If you have had General Anesthesia or IV Sedation: * Do not drive today. * Resume driving when surgeon permits. * Do not make important decisions or sign legal documents today. * Call surgeon for: 1. Temperature elevations greater than 101 degrees F. 2. Uncontrollable pain. 3. Excessive bleeding. 4. Persistent nausea and vomiting. 5. Medication intolerance (nausea, vomiting or rash). * For nausea and vomiting use only clear liquids such as: tea, soda, bouillon until nausea subsides, then gradually increase diet as tolerated. * If you have any concerns or questions, call your surgeon's office. If physician is unavailable and it is an emergency, call 911 or go to the nearest emergency room. Instructions Activity Recommendations: limitations as noted below Return to School/Work: with the following limitations Recommended Home Diet: low sodium, low cholesterol, diabetes diet Allergies: Coded Allergies: No Known Allergies (Unverified , 10/17/16) Provider Instructions ACTIVITY RECOMMENDATIONS: It is common to feel weak and fatigue for a few days. * Do not drive or operate any motorized equipment for the next three days. * Limit stair usage (2 or 3 trips a day only) for the next three days. * Do not lift anything heavier than 10 pounds for the next three days. * Do not engage in vigorous exercise or any sports for the next five days. * You may shower the day after your procedure, but do not immerse the area for three days. Cleanse the site gently with soap and water. SPECIAL CARE INSTRUCTIONS: * You may replace the pressure dressing or band-aid the morning after the procedure. * After your procedure, it is normal to have a small bruise or small lump at the site. Examine your site daily for any change in the bruise or lump, redness, swelling, drainage or numbness. Notify your doctor if any change. BLEEDING: * If there is a small amount of bleeding at the site, lie down and apply firm pressure with a clean cloth for ten minutes. When the bleeding stops, lie quietly keeping the procedure limb straight for six hours. Notify your doctor as soon as possible. * If the bleeding does not stop after ten minutes or if there is a large amount of bleeding or spurting, call 911 immediately. Continue to lie down and hold firm pressure until help arrives. SKIN IRRITATION: * You may experience some redness and/or swelling in the area where radiation was administered. If any skin irritation occurs, please contact your family physician. FOLLOW UP VISIT: Keep any scheduled doctor appointments. Follow Up Additional Instructions: Increase lipitor, (atorvastatin) to 80mg daily Follow-up with: Dr. Amaya as scheduled [facility] [address] Recommendations: Call your doctor if: * Temperature above 101 degrees * Pain not relieved by pain medicine ordered * There is increased drainage or redness from any incision * You have any unanswered questions or concerns. Your Doctors Instructions noted above were prepared by provider Demarco Mendoza. Patient Signature Section: Patient Instructions Signature Page Kris Haney Patient (or Guardian) Signature/Date: I have read and understand the instructions given to me by my caregivers. Caregiver/RN/Doctor Signature/Date: The above-named patient and/or guardian has received patient instructions on this date. + Original Patient Signature Page (only) stays with chart. Please make copy for patient.
[2018-04-09 13:30] VITALS: BP 124/77; PULSE 75; O2SAT 98
== END | disposition home or self-care (01) ==
LOC: C.CATH 06:49
PROVIDERS: ATTEND Internal Medicine Cardiovascular Disease
DX: I25.10 Atherosclerotic heart disease of native coronary artery without angina pectoris (principal); E11.9 Type 2 diabetes mellitus without complications; I10 Essential (primary) hypertension; I42.9 Cardiomyopathy, unspecified; E78.5 Hyperlipidemia, unspecified; I48.0 Paroxysmal atrial fibrillation; Z83.3 Family history of diabetes mellitus; Z82.49 Family history of ischemic heart disease and other diseases of the circulatory system; Z84.1 Family history of disorders of kidney and ureter; Z87.891 Personal history of nicotine dependence; Z79.01 Long term (current) use of anticoagulants; Z79.82 Long term (current) use of aspirin; Z79.899 Other long term (current) drug therapy; Z79.84 Long term (current) use of oral hypoglycemic drugs; Z86.73 Personal history of transient ischemic attack (TIA), and cerebral infarction without residual deficits

== ENCOUNTER 2018-04-16 13:42 | Inpatient (IN) | payer OTHER ==
[~2018-04-16] VITALS: Ht 185.4 cm; Wt 122.0 kg
[~2018-04-16 13:42] MED LIST changes: -ADENOSINE IV SOLN 3 MG/ML 20 ML VIAL ONE; -ATOR-24 PO; -FENTANYL CITRATE INJ 50 MCG/1 ML 2 ML VIAL ONE; -HEPARIN SOD (PORCINE) 1000 UNIT/ML 10 ML VIAL ONE; -MIDAZOLAM HCL 1 MG/ML 2ML VIAL ONE; -NITROGLYCERIN/D5W 100MCG/ML 20ML SYR ONE; -NiCARDipine HCL INJ 2.5 MG/ML 10 ML AMP ONE
[2018-04-16] MEDS ORDERED: ONDANSETRON INJ 2 MG/ML 2 ML VIAL IV STA (14:09)
[2018-04-16] MEDS ORDERED: MoRPHine SULFATE 4 MG/ML 1 ML CARP\\VIAL IV STA (14:09)
[2018-04-16] MEDS ORDERED: SODIUM CHLORIDE 0.9% 1000ML 1,000 ML IV STA (14:09)
[2018-04-16] MEDS ORDERED: METO100T44 PO (14:22)
[2018-04-16] MEDS ORDERED: PREG1CAP28 PO (14:27)
[2018-04-16 14:38] LABS: BASO % 0.3 %; BASO ABS # 0.02 K/uL (0-0.2); EOS % 0.8 %; EOS ABS # 0.06 K/uL (0-0.5); HEMATOCRIT 43.7 % (42-52); IG# 0.01 K/uL (0.00-0.02); LYMPH ABS # 1.24 K/uL (1.2-3.4); MEAN CELL VOLUME 83.1 fL (80-100); MEAN CORPUSCULAR HEMOGLOBIN 30.4 pg (25-34); MEAN CORPUSCULAR HGB CONC 36.6 g/dl (32-36); MEAN PLATELET VOLUME 10.9 fL (7.4-10.4); MONO % 5.2 %; MONO ABS # 0.38 K/uL (0.11-0.59); NEUT % 76.6 %; PLATELET COUNT 174 K/uL (130-400); RED CELL DISTRIBUTION WIDTH CV 13.4 % (11.5-14.5); RED CELL DISTRIBUTION WIDTH SD 39.9 fL (36.4-46.3); WHITE BLOOD COUNT 7.31 K/uL (4.8-10.8)
--- NOTE | 2018-04-16 14:53 | DIAGNOSTIC IMAGING REPORT ---
CHEST 2 VIEWS ROUTINE CLINICAL HISTORY: ABDOMINAL PAIN/GI pain COMPARISON STUDY: 12/27/2016 FINDINGS: The bones soft tissues and hemidiaphragms are normal. The cardiomediastinal silhouette is normal. The lungs are clear. The pulmonary vasculature is normal. IMPRESSION: Negative chest. The above report was generated using voice recognition software. It may contain grammatical, syntax or spelling errors. Electronically signed by: Adrián Fair M.D. 04/16/2018 2:52 PM Dictated Date/Time: 04/16/2018 2:52 PM
[2018-04-16 14:56] LABS: ALBUMIN 4.2 gm/dl (3.4-5.0); CALCIUM 10.3 mg/dl (8.5-10.1); CREATININE 1.29 mg/dl (0.60-1.40); POTASSIUM 3.9 mmol/L (3.5-5.1); TOTAL PROTEIN 8.2 gm/dl (6.4-8.2)
[2018-04-16] MEDS ORDERED: MoRPHine SULFATE 10 MG/ML CARP/VIAL IM STA (15:12)
[2018-04-16] MEDS ORDERED: OPTIRAY 320 IV PRN (15:45)
--- NOTE | 2018-04-16 16:27 | DIAGNOSTIC IMAGING REPORT ---
ULTRASOUND RIGHT UPPER QUADRANT ABDOMEN CLINICAL HISTORY: Right upper quadrant abdominal pain. COMPARISON STUDY: No priors. TECHNIQUE: Real-time, grayscale, and color flow sonography of the right upper quadrant of the abdomen was performed. Images are reviewed in the transverse and longitudinal planes. FINDINGS: Liver: The liver is enlarged measuring over 20 cm in length and demonstrates heterogeneously increased echotexture consistent with severe hepatic steatosis. Note that this degrades acoustic penetration of the liver. Fatty sparing is seen adjacent to gallbladder fossa. There is no intrahepatic biliary ductal dilatation. The main portal vein is patent. Gallbladder: Small gallstones are suggested. The gallbladder is otherwise normal in appearance. There is no gallbladder wall thickening or pericholecystic fluid. A sonographic Cash's sign is reportedly absent. The common bile duct measures up to 0.5 cm in diameter. Pancreas: Not well visualized due to overlying bowel gas. Right kidney: Survey images of the right kidney demonstrate normal size and echotexture. There is no hydronephrosis. Ascites: None. IMPRESSION: 1. Cholelithiasis without sonographic evidence of acute cholecystitis. 2. Hepatomegaly and severe hepatic steatosis. 3. The pancreas was not well visualized. Electronically signed by: Amaury Graves M.D. 04/16/2018 4:25 PM Dictated Date/Time: 04/16/2018 4:08 PM
[2018-04-16] MEDS ORDERED: NITROGLYCERIN 0.4 MG/HR PATCH TD ONE (17:15)
--- NOTE | 2018-04-16 18:11 | EMERGENCY ROOM VISIT NOTE ---
ED Visit Note First contact with patient: 13:49 Chief Complaint: Chest pain. History of Present Illness: Mr. Haney is a 47 year-old white male who relates into the ED accompanied by his complaining of chest pain. Historically patient reports he has a history of coronary artery disease; he had a cardiac catheterization performed on April 09 after a failed nuclear stress test and exertional dyspnea. According the notes from that catheterization he was found to have moderate to severe with failed stent placement due to vessel tortuosity. Additionally his past medical history includes diabetes, hypertension, kidney disease, stroke and paroxysmal atrial fibrillation. Patient reports a acute onset of pain that started approximately hours [address] his discomfort in the lower sternal and epigastric area. He describes his pain as a sharp sensation. He rates his discomfort 7/10. His pain has been constant but has waxed and waned in intensity; initially it was mild and became severe approximately 6 hours ago. His discomfort is radiating into the right upper quadrant and the lateral aspect of the right upper quadrant in the mid axillary line. He has not identified any aggravating or factors related to the pain. He has not taken any medications for his pain prior to arrival at the hospital. Associated with his pain he reports he has been nauseated and has had 2 episodes of vomiting. Additionally he reports when his pain peaks he feels like "it takes his breath away"; but when questioned he frankly denies shortness of breath. Patient denies headache, lightheadedness, dizziness, fevers, chills, sweats, skin eruptions, skin color changes, upper respiratory tract symptoms, wheezing, cough shortness of breath, orthopnea, dependent edema, previous clots, claudication, cramping, diarrhea, constipation, rectal bleeding, black/tarry stools, urinary symptoms. Review of Systems: As noted above in history of present illness. All body systems were reviewed and found to be negative as noted above. Past Medical History: As previously noted and vertigo. Current Medications: Medications Dose Route/Sig Max Daily Dose Days Date Category Dose Instructions Lyrica (Pregabalin) 75 Mg Cap 75 Mg PO TID 04/16/18 Reported Toprol-Xl (Metoprolol Succinate) 100 Mg Tabcr 100 Mg PO DAILY 04/16/18 Reported Lipitor (Atorvastatin Calcium) 40 Mg Tab 80 Mg PO DAILY 30 04/09/18 Rx Senna Plus (Sennosides-Docusate Sodium) 1 Tab Tab 2 Tabs PO BID 04/08/18 Reported Probiotic (Probiotic Product) 1 Cap Cap 1 Cap PO DAILY 04/08/18 Reported Multivitamin (Multiple Vitamin) 1 Tab Tab 1 Tab PO DAILY 90 04/08/18 Reported Tradjenta (Linagliptin) 5 Mg Tab 5 Mg PO DAILY 04/08/18 Reported Hctz (Hydrochlorothiazide) 25 Mg Tab 25 Mg PO DAILY 04/08/18 Reported Eliquis (Apixaban) 5 Mg Tab 5 Mg PO BID 04/08/18 Reported Diltiazem Cd (Diltiazem Hcl Coated Beads) 240 Mg Cap 240 Mg PO DAILY 04/08/18 Reported Vitamin B-12 (Cyanocobalamin) 1,000 Mcg Tab 2,000 Mcg PO DAILY 12/01/16 Reported Glucophage (Metformin Hcl) 1,000 Mg Tab 1,000 Mg PO BID 12/01/16 Reported Vibramycin (Doxycycline Hyclate) 50 Mg Cap 100 Mg PO DAILY 12/01/16 Reported Levitra (Vardenafil HCl) 20 Mg Tab 20 Mg PO DIRECTED 12/01/16 Reported Glucotrol (Glipizide) 10 Mg Tab 20 Mg PO BID 12/01/16 Reported take 30 min before morning and evening meals. Tylenol (Acetaminophen) 500 Mg Tab 1,000 Mg PO Q8 PRN 12/01/16 Reported Prilosec (Omeprazole) 20 Mg Cap 20 Mg PO DAILY 12/01/16 Reported Zoloft (Sertraline HCl) 50 Mg Tab 100 Mg PO DAILY 12/01/16 Reported Cozaar (Losartan Potassium) 100 Mg Tab 100 Mg PO DAILY 12/01/16 Reported Aspirin Ec (Aspirin) 81 Mg Tab 81 Mg PO DAILY 12/01/16 Reported Cardura (Doxazosin Mesylate) 2 Mg Tab 2 Mg PO DAILY 12/01/16 Reported Ultram (Tramadol HCl) 50 Mg Tab 50 Mg PO TID 12/01/16 Reported Zofran Odt (Ondansetron HCl) 4 Mg Tab 4 Mg SL Q8 PRN 12/01/16 Reported Meclizine Hcl 25 Mg Tab 25 Mg PO BID 12/01/16 Reported Allergies to Medications: Oxycodone. Social History: Patient is currently unemployed; he feels safe in his home environment; he admits to being a former smoker. Physical Examination: Vital Signs: Date Time Temp Pulse Resp B/P (MAP) Pulse Ox O2 Delivery O2 Flow Rate FiO2 04/16/18 16:34 92 16 192/120 95 Room Air 04/16/18 15:23 93 12 183/104 88 Room Air 04/16/18 14:02 71 04/16/18 13:52 99 Room Air 04/16/18 13:44 36.7 75 24 182/114 100 Room Air GENERAL: 47-year-old male in mild to moderate distress due to pain, nontoxic- appearing, afebrile and hemodynamically stable. NEUROLOGICAL: Awake, alert and oriented to person, place and time. Answering questions appropriately and following commands. Normal gait. Good hand eye coordination. SKIN: Warm, dry and pink. HEENT: Atraumatic and normocephalic. PERRLA. Sclera white and conjunctiva pink. Oral cavity moist and pink. Pharynx is nonerythematous or edematous. Speech normal. No lymphadenopathy. Trachea midline. No jugular venous distention. No carotid bruits. BACK: No tenderness over the bony spine. No CVA tenderness. THORAX: Lungs sounds are clear to auscultation and equal bilaterally with symmetrical chest wall. No wheezing, rales or rhonchi. No crepitus, tenderness , subcutaneous air or deformities noted. HEART: Regular rate and rhythm. No gallops, rubs or murmurs are appreciated. No lifts, heaves or thrills. PMI is not displaced. ABDOMEN: Flat, soft and nontender. Positive bowel sounds in all quadrants. No guarding, rigidity or organomegaly. EXTREMITIES: Moves all extremities well on command and with purpose. All distal neurovascular statuses are intact and equal bilaterally. No dependent edema or calf tenderness/cords. ED Course: Patient is assessed as noted above. Patient's medication list was reviewed. Laboratory Testing: Test 04/16/18 13:59 04/16/18 14:17 04/16/18 15:30 04/16/18 16:30 Range/Units White Blood Count 7.31 4.8-10.8 K/uL Red Blood Count 5.26 4.7-6.1 M/uL Hemoglobin 16.0 14.0-18.0 g/dL Hematocrit 43.7 42-52 % Mean Corpuscular Volume 83.1 80-100 fL Mean Corpuscular Hemoglobin 30.4 25-34 pg Mean Corpuscular Hemoglobin Concent 36.6 32-36 g/dl Platelet Count 174 130-400 K/uL Mean Platelet Volume 10.9 7.4-10.4 fL Neutrophils (%) (Auto) 76.6 % Lymphocytes (%) (Auto) 17.0 % Monocytes (%) (Auto) 5.2 % Eosinophils (%) (Auto) 0.8 % Basophils (%) (Auto) 0.3 % Neutrophils # (Auto) 5.60 1.4-6.5 K/uL Lymphocytes # (Auto) 1.24 1.2-3.4 K/uL Monocytes # (Auto) 0.38 0.11-0.59 K/uL Eosinophils # (Auto) 0.06 0-0.5 K/uL Basophils # (Auto) 0.02 0-0.2 K/uL RDW Standard Deviation 39.9 36.4-46.3 fL RDW Coefficient of Variation 13.4 11.5-14.5 % Immature Granulocyte % (Auto) 0.1 % Immature Granulocyte # (Auto) 0.01 0.00-0.02 K/uL D-Dimer 530 0-500 ug/L FEU Sodium Level 131 136-145 mmol/L Potassium Level 3.9 3.5-5.1 mmol/L Chloride Level 94 98-107 mmol/L Carbon Dioxide Level 26 21-32 mmol/L Anion Gap 11.0 3-11 mmol/L Blood Urea Nitrogen 15 7-18 mg/dl Creatinine 1.29 0.60-1.40 mg/dl Est Creatinine Clear Calc Drug Dose 90.4 ml/min Estimated GFR () 76.0 Estimated GFR (Non- 65.6 BUN/Creatinine Ratio 11.8 10-20 Random Glucose 309 70-99 mg/dl Calcium Level 10.3 8.5-10.1 mg/dl Total Bilirubin 1.0 0.2-1 mg/dl Direct Bilirubin 0.2 0-0.2 mg/dl Aspartate Amino Transf (AST/SGOT) 16 15-37 U/L Alanine Aminotransferase (ALT/SGPT) 38 12-78 U/L Alkaline Phosphatase 126 45-117 U/L Total Protein 8.2 6.4-8.2 gm/dl Albumin 4.2 3.4-5.0 gm/dl Lipase 139 73-393 U/L Beta-Hydroxybutyric Acid 6.10 0.2-2.81 mg/dL Bedside Troponin I 0.030 0.050 0-0.045 ng/ml Urine Color YELLOW Urine Appearance CLEAR CLEAR Urine pH 7.5 4.5-7.5 Urine Specific Means 1.038 1.000-1.030 Urine Protein NEG NEG Urine Glucose (UA) 3+ NEG Urine Ketones 1+ NEG Urine Occult Blood NEG NEG Urine Nitrite NEG NEG Urine Bilirubin NEG NEG Urine Urobilinogen NEG NEG Urine Leukocyte Esterase NEG NEG Chest X-Rays: Radiological Testing: EKG: (163) was read by myself and reviewed with Dr. Lenz; shows normal sinus rhythm with a ventricular rate of 89 bpm. Normal axis and complexes. No acute ischemic changes were noted. There is flattening of the ST complex into 3 and aVF with near inversion in lead III. Also T-wave elevation in the anterior leads of V3 and V4 appear to have changed from previous. EKG: (1347) read by myself and reviewed with Dr. Lynch; shows normal sinus rhythm with beats per minute. No acute ST changes were noted when compared to previous filed EKG on December 28. Patient was hydrated with normal saline he initially received 4 mg of morphine IV for pain and 4 mg of Zofran IV for nausea. He was reassessed multiple times during his stay in the emergency department; subsequent reevaluation patient reports she was still having severe pain and was given 6 mg of morphine. On reassessment of his [id number] troponin it became elevated at 0.05 and his EKG showed some ST changes in the inferior and anterior leads. Patient's case was reviewed with Dr. Lynch and also Dr. Lenz; we agreed on diagnostic approach, treatment, disposition and plan. Patient's case was consulted with case management, Polo Jaimes PA-C [facility] hospitalist and and Dr. Angel Shaw, [facility] cardiology; for hospitalists observation/admission. A transdermal nitroglycerin patch was placed on the patient's chest. Pending observation/admission is a chest CTA for evaluation of elevated d-dimer / pulmonary embolism. Patient and his are educated about today's findings. Clinical Impression: Chest pain. Elevated troponin. Right upper quadrant pain. Gallstones. Decision-Making: Initially my differential diagnosis I considered acute coronary syndrome, thoracic aneurysm, pneumothorax, pneumonia, pulmonary emboli , musculoskeletal disorder, acute cholecystitis, hepatitis, pancreatitis, kidney stone and other causes. Disposition and Plan: Patient be brought into the hospital by the [facility] hospitalist; please see their notes and orders for final disposition and plan.
--- NOTE | 2018-04-16 18:15 | DIAGNOSTIC IMAGING REPORT ---
CT ANGIOGRAPHY OF THE CHEST, PULMONARY EMBOLUS PROTOCOL CLINICAL HISTORY: Chest pain. Elevated D dimer. Upper abdominal pain. Recent catheterization. COMPARISON STUDY: Chest radiograph December 27, 2016 and April 16, 2018. TECHNIQUE: Following IV administration of 103 mL of Optiray-320, helical axial images of the chest were obtained utilizing the pulmonary embolus protocol. Maximal intensity projections and sagittal and coronal reformats were viewed on an independent 3D workstation. IV contrast was administered without complication. A dose lowering technique was utilized adhering to the principles of ALARA. CT DOSE: 559.46 mGycm FINDINGS: No pulmonary emboli are identified. There is no evidence for thoracic aortic dissection. The size of the heart is at the upper limits of normal. There is no pericardial effusion. There is mild to moderate coronary artery calcification. Central airways are patent. Groundglass opacities reflect atelectasis. There is no consolidation to suggest pneumonia. No pneumothorax or pleural effusion is noted. No significant abnormality bony thorax is identified. Fatty infiltration of the liver is noted. There is mild splenomegaly. IMPRESSION: 1. No pulmonary emboli identified. 2. No acute intrathoracic findings. 3. Fatty liver. 4. Mild splenomegaly. Electronically signed by: Micha Villalta M.D. 04/16/2018 6:14 PM Dictated Date/Time: 04/16/2018 6:05 PM
[2018-04-16] MEDS ORDERED: METOPROLOL TARTRATE 1 MG/ML VIAL ONE (18:18)
[2018-04-16] MEDS ORDERED: GLUCOSE 10 TABS/TUBE PO PRN ×2 (18:30→19:00)
[2018-04-16] MEDS ORDERED: CARBOHYDRATES FOR HYPOGLYCEMIA PO PRN ×2 (18:30→19:00)
[2018-04-16] MEDS ORDERED: GLUCAGON FOR INJ 1 MG VIAL SQ PRN ×2 (18:30→19:00)
[2018-04-16] MEDS ORDERED: DEXTROSE 50% 50 ML SYR IV PRN ×2 (18:30→19:00)
[2018-04-16] MEDS ORDERED: GLUCOSE 40% GEL 15 GM TUBE PO PRN ×2 (18:30→19:00)
[2018-04-16] MEDS ORDERED: METOPROLOL TARTRATE 1 MG/ML VIAL IV STA (18:35)
[2018-04-16] MEDS ORDERED: ALUMINUM/MAGNESIUM/SIMETH (MAALOX MAX) 30 ML UDC PO PRN (18:45)
[2018-04-16] MEDS ORDERED: NITROGLYCERIN 0.4 MG SL PER TAB CHARGE SL PRN (18:45)
[2018-04-16] MEDS ORDERED: MoRPHine SULFATE 2 MG/ML CARP IV PRN (18:45)
[2018-04-16] MEDS ORDERED: PHARMACY GLYCEMIC MGMT CONSULT PRN (19:29)
[2018-04-16] MEDS: ONDANSETRON INJ 2 MG/ML 2 ML VIAL IV PRN (19:35)
[2018-04-16 20:15] VITALS: BP 177/112; PULSE 93; TEMP 36.8; O2SAT 95; BMI 36.6
[2018-04-16] MEDS ORDERED: INSULIN HUMAN REGULAR PER UNIT 6 UNITS in SYRINGE 5.94 ML IV STA (20:30)
[2018-04-16] MEDS: ACETAMINOPHEN 325 MG TAB PO PRN (20:32)
--- NOTE | 2018-04-16 20:37 | History and Physical ---
History & Physical Date & Time of Service: Apr 16, 2018 at 19:43 Chief Complaint: Chest Pain Primary Care Physician: Papa Colmneares D.O. 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 He states yesterday at 4 PM developed right sided pain, pointing to RUQ of abdomen , "felt like being poked in ribs," constant, 05/17, radiated to RLQ and right side of back, made worse with movement, nothing made better, tried no OTC medications. Initially late last evening symptoms improved, however when woke up this morning symptoms returned. Described as burning. He never had similar sx in past. Had associated nausea, emesis x 1 that preceded pain hours prior, SOB at rest. Symptoms occurred while sitting on couch watching tv. Currently pain /10, "pain meds are wearing off." Poor appetite, decreased PO intake over past 24 hours. Patient is well known to cardiology and of significance back on 04/09/18 patient had cardiac cath secondary to failed stress test by Dr. Mendoza. On 03/17 nuclear stress was done secondary to OLGUIN, revealed possible RCA territory infarct, moderate LV hypokinesis and EF of 48%. Cath revealed 100 % distal RCA occlusion with RPL branches filling via collaterals, 70% prox RPDA , proximal LAD stenosis up to 50%. No intervention was done, cardiac medical management was recommended. In ED patient was given IV morphine for pain control, IV fluids 1 L. Labs revealed sodium 131, potassium 3.9, chloride 94, BUN 15, creatinine 1.29, glucose 309, hemoglobin 16, hematocrit 43.7, WBC 7.3, platelet 174, initial troponin 0 0.03, repeat troponin 0 0.05, elevated d-dimer at 530, elevated betabutyric acid at 610. CTA negative for PE, + for fatty liver. US of abdomen showed gallstones, but negative for cholecystitis. Past Medical/Surgical History Medical Problems: (1) Atrial fibrillation Status: Chronic (2) CAD (coronary artery disease) Status: Chronic (3) Chronic systolic (congestive) heart failure Permanent Comment: Ischemic, EF 48% with moderate LV hypokinesis Status: Chronic (4) Diabetic polyneuropathy associated with type 2 diabetes mellitus Status: Chronic (5) History of CVA (cerebrovascular accident) Status: Chronic (6) History of renal cell carcinoma Status: Chronic (7) HLD (hyperlipidemia) Status: Chronic (8) HTN (hypertension) Status: Chronic (9) Kidney disease Status: Resolved (10) Obesity (BMI 30.0-34.9) Status: Chronic (11) Rapid atrial fibrillation Status: Resolved (12) Recurrent major depressive disorder Status: Chronic (13) Stroke Status: Resolved (14) Type 2 diabetes mellitus Status: Chronic (15) Vertigo Status: Chronic Surgical Problems: (1) History of amputation of right great toe Status: Chronic (2) History of laminectomy Status: Chronic (3) History of partial nephrectomy Permanent Comment: left 05/12/2017 Dr. Miguel Status: Chronic (4) History of tonsillectomy Status: Chronic Family History Diabetes mellitus FH: heart disease Hypertension Kidney disease Social History Smoking Status: Former Smoker (quit 01/23/09 with 100 pack year hx) Smokeless Tobacco Use: No Alcohol Use: rarely Drug Use: none Marital Status: Housing status: lives with family Occupational Status: unemployed Allergies Coded Allergies: Oxycodone (Unverified Adverse Reaction, Intermediate, HEADACHE, 04/16/18) Home Medications Scheduled Apixaban (Eliquis), 5 MG PO BID Aspirin (Aspirin Ec), 81 MG PO DAILY Atorvastatin (Lipitor), 80 MG PO DAILY Cyanocobalamin (Vitamin B-12), 2,000 MCG PO DAILY Diltiazem Hcl Coated Beads (Diltiazem Cd), 240 MG PO DAILY Doxazosin Mesylate (Cardura), 1 MG PO DAILY Doxycycline Hyclate (Vibramycin), 50 MG PO BID Glipizide (Glucotrol), 20 MG PO BID Hydrochlorothiazide (Hctz), 25 MG PO DAILY Linagliptin (Tradjenta), 5 MG PO DAILY Losartan Potassium (Cozaar), 100 MG PO DAILY Meclizine Hcl (Meclizine Hcl), 25 MG PO BID Metformin Hcl (Glucophage), 1,000 MG PO BID Metoprolol Succ (Toprol Xl) (Toprol-Xl ), 100 MG PO DAILY Multiple Vitamin (Multivitamin), 1 TAB PO DAILY Omeprazole (Prilosec), 20 MG PO DAILY Pregabalin (Lyrica), 75 MG PO TID Probiotic Product (Probiotic), 1 CAP PO DAILY Sennosides-Docusate Sodium (Senna Plus), 2 TABS PO BID Sertraline (Zoloft), 100 MG PO DAILY Tramadol (Ultram), 50 MG PO TID Vardenafil (Levitra), 20 MG PO DIRECTED Scheduled PRN Acetaminophen (Tylenol), 1,000 MG PO Q8 PRN for Pain Ondasetron Odt (Zofran Odt), 4 MG SL Q8 PRN for Nausea Review of Systems As noted per HPI, 10 systems reviewed and negative unless noted above. Physical Exam Vital Signs Date Time Temp Pulse Resp B/P (MAP) Pulse Ox O2 Delivery O2 Flow Rate FiO2 04/16/18 19:38 93 18 98 04/16/18 19:36 190/127 04/16/18 19:33 101 15 97 04/16/18 19:31 187/127 04/16/18 19:28 91 7 97 04/16/18 19:26 189/126 04/16/18 19:23 93 19 182/120 98 04/16/18 19:21 182/123 04/16/18 19:18 89 17 177/121 97 04/16/18 19:16 180/127 04/16/18 19:13 95 15 176/118 96 04/16/18 19:11 184/116 04/16/18 19:08 97 11 179/120 96 04/16/18 19:06 163/125 04/16/18 19:03 94 12 185/121 97 04/16/18 19:02 95 16 183/124 97 Room Air 04/16/18 18:49 93 14 180/132 98 Room Air 04/16/18 18:18 89 172/115 04/16/18 17:00 89 16 173/117 95 Room Air 04/16/18 16:34 92 16 192/120 95 Room Air 04/16/18 15:23 93 12 183/104 88 Room Air 04/16/18 14:02 71 8/10/18 13:52 99 Room Air 04/16/18 13:44 36.7 75 24 182/114 100 Room Air General Appearance: WD/WN (Male, appears older than age, appears fatigued), no apparent distress, + obese Head: normocephalic, atraumatic Eyes: normal inspection, PERRL, EOMI, sclerae normal ENT: normal ENT inspection, hearing grossly normal, + pertinent finding ( Mucous membranes moist) Neck: supple, no adenopathy, thyroid normal, no JVD Respiratory/Chest: chest non-tender, lungs clear, normal breath sounds, no respiratory distress, no accessory muscle use Cardiovascular: regular rate, rhythm, no edema, no gallop, no JVD, no murmur, normal peripheral pulses, + pertinent finding (no chest wall tenderness to palpation) Abdomen/GI: normal bowel sounds, soft, + tenderness (In right upper quadrant, no rebound, no guarding, negative Cash's), + distended (Secondary to obesity) Back: normal inspection, no CVA tenderness, no muscle spasm Extremities/Musculoskelatal: normal inspection, no calf tenderness, normal capillary refill, no pedal edema Neurologic/Psych: alert, normal mood/affect, normal reflexes Skin: normal color, warm/dry Diagnostics Laboratory Results Results Past 24 Hours Test 04/16/18 13:59 04/16/18 14:17 04/16/18 15:30 04/16/18 16:30 Range/Units White Blood Count 7.31 4.8-10.8 K/uL Red Blood Count 5.26 4.7-6.1 M/uL Hemoglobin 16.0 14.0-18.0 g/dL Hematocrit 43.7 42-52 % Mean Corpuscular Volume 83.1 80-100 fL Mean Corpuscular Hemoglobin 30.4 25-34 pg Mean Corpuscular Hemoglobin Concent 36.6 32-36 g/dl Platelet Count 174 130-400 K/uL Mean Platelet Volume 10.9 7.4-10.4 fL Neutrophils (%) (Auto) 76.6 % Lymphocytes (%) (Auto) 17.0 % Monocytes (%) (Auto) 5.2 % Eosinophils (%) (Auto) 0.8 % Basophils (%) (Auto) 0.3 % Neutrophils # (Auto) 5.60 1.4-6.5 K/uL Lymphocytes # (Auto) 1.24 1.2-3.4 K/uL Monocytes # (Auto) 0.38 0.11-0.59 K/uL Eosinophils # (Auto) 0.06 0-0.5 K/uL Basophils # (Auto) 0.02 0-0.2 K/uL RDW Standard Deviation 39.9 36.4-46.3 fL RDW Coefficient of Variation 13.4 11.5-14.5 % Immature Granulocyte % (Auto) 0.1 % Immature Granulocyte # (Auto) 0.01 0.00-0.02 K/uL D-Dimer 530 0-500 ug/L FEU Sodium Level 131 136-145 mmol/L Potassium Level 3.9 3.5-5.1 mmol/L Chloride Level 94 98-107 mmol/L Carbon Dioxide Level 26 21-32 mmol/L Anion Gap 11.0 3-11 mmol/L Blood Urea Nitrogen 15 7-18 mg/dl Creatinine 1.29 0.60-1.40 mg/dl Est Creatinine Clear Calc Drug Dose 90.4 ml/min Estimated GFR () 76.0 Estimated GFR (Non- 65.6 BUN/Creatinine Ratio 11.8 10-20 Random Glucose 309 70-99 mg/dl Calcium Level 10.3 8.5-10.1 mg/dl Total Bilirubin 1.0 0.2-1 mg/dl Direct Bilirubin 0.2 0-0.2 mg/dl Aspartate Amino Transf (AST/SGOT) 16 15-37 U/L Alanine Aminotransferase (ALT/SGPT) 38 12-78 U/L Alkaline Phosphatase 126 45-117 U/L Pro-B-Type Natriuretic Peptide 1741 0-450 pg/ml Total Protein 8.2 6.4-8.2 gm/dl Albumin 4.2 3.4-5.0 gm/dl Amylase Level 59 25-115 U/L Lipase 139 73-393 U/L Beta-Hydroxybutyric Acid 6.10 0.2-2.81 mg/dL Bedside Troponin I 0.030 0.050 0-0.045 ng/ml Urine Color YELLOW Urine Appearance CLEAR CLEAR Urine pH 7.5 4.5-7.5 Urine Specific [place] 1.038 1.000-1.030 Urine Protein NEG NEG Urine Glucose (UA) 3+ NEG Urine Ketones 1+ NEG Urine Occult Blood NEG NEG Urine Nitrite NEG NEG Urine Bilirubin NEG NEG Urine Urobilinogen NEG NEG Urine Leukocyte Esterase NEG NEG Diagnostic Radiology CTA: IMPRESSION: 1. No pulmonary emboli identified. 2. No acute intrathoracic findings. 3. Fatty liver. Abd ultraasound IMPRESSION: 1. Cholelithiasis without sonographic evidence of acute cholecystitis. 2. Hepatomegaly and severe hepatic steatosis. 3. The pancreas was not well visualized. 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 Patient is well known to cardiology and of significance back on patient had cardiac cath secondary to failed stress test by Dr. Mendoza. On 03/17 nuclear stress was done secondary to OLGUIN, revealed possible RCA territory infarct, moderate LV hypokinesis and EF of 48%. Cath revealed 100% distal RCA occlusion with RPL branches filling via collaterals, 70% prox RPDA, proximal LAD stenosis up to 50%. No intervention was done, cardiac medical management was recommended. He presents today with, "chest pain," however on further questioning and examination pain is mostly located in the RUQ with radiation to right middle back and RLQ. In ED patient was given IV morphine for pain control, IV fluids 1 L. Remained hypertensive. Labs revealed sodium 131, potassium 3.9, chloride 94, BUN 15, creatinine 1.29, glucose 309, hemoglobin 16, hematocrit 43.7, WBC 7.3, platelet 174, initial troponin 0 0.03, repeat troponin 0 0.05, elevated d- dimer at 530, elevated beta hydroxybutyric acid at 610. CTA negative for PE, + for fatty liver. US of abdomen showed gallstones, but negative for cholecystitis. I spoke with Dr. Shaw on phone, does not feel like elevated troponin related to ischemic event, however significantly concerned regarding HTN. Abd US/ CMP not significant for cholecystitis; however on exam appears to be more GI/possible gall bladder related as opposed to cardiac. Ddx: HTN Urgency, HHS, angina, NSTEMI, cholecystitis, choledocholithiasis, sphincter of radha dysfunction, pancreatitis, musculoskeletal. -Admit to med/surg tele -NPO except ICE Chips -Consult cardiology Dr. Shaw for continued cardiac management -Consult GI for possible GI etiology of current symptoms -IV protonix -Morphine 1mg q4h prn for pain managment -Labetolol 10mg IV q8hr prn for HTN urgency -Trend troponins -repeat CBC, BMP, BNP, Amylase, beta hydroxybutric acid -If pain continues will consider CT Abd/pelvis once renal function improves (2) Hypertensive urgency Assessment & Plan: -IV labetolol 10mg q8h prn SBP >160 -Nitro Paste 1in q6 hour -Continue Metoprolol, diltiazem, cardura. -HCTZ/ARB on hold. (3) Hyperglycemia Assessment & Plan: Last A1C 04/05/18 8.9 No anion gap -Give IV regular Insulin 6 units x 1 now -Consult pharmacy for glycemic management -Start Basaglar 12 units SQ BID and ISS -routine accuchecks -trend beta hydroxybutric acid (4) WADE (acute kidney injury) Assessment & Plan: baseline creatinine 0.9 holding nephrotoxic agents -Gentle IVF NSS 80 cc/hr x 1 L secondary to mild WADE, poor PO intake secondary to pain and nausea -repeat BMP in a.m. as well as BNP due to reduced EF (5) Chronic systolic (congestive) heart failure Assessment & Plan: EF 48% with LV Hypokinesis Currently euvolemic on exam without acute exacerbation. On BB, Arb, ASA. ARB and ASA on hold. (6) HLD (hyperlipidemia) Assessment & Plan: -hold statin for now in the setting on possible GI etiology of symptoms. (7) CAD (coronary artery disease) Assessment & Plan: on ASA, Statin, ARB, BB ARB, Statin and ASA on hold secondary to current abdominal pain, possible GI etiology. (8) Type 2 diabetes mellitus Assessment & Plan: A1C 8.9 on 04/05/18 -holding home metformin, Tradjenta and glipizide -consult to glycemic pharmacist -management as above per hyperglycemia -Need for strict diabetic control secondary to multiple co morbidities (9) Diabetic polyneuropathy associated with type 2 diabetes mellitus Assessment & Plan: Lyrica on hold (10) History of CVA (cerebrovascular accident) Assessment & Plan: Occurred in early 2016. [place] to be secondary to PAF. -On CZM, BB for rate/rhythm control. -On eliquis for thrombotic control. -Eliquis on hold for now (11) Atrial fibrillation Assessment & Plan: On CZM, BB for rate/rhythm control. -On eliquis for thrombotic control. -Eliquis on hold for now (12) Recurrent major depressive disorder Assessment & Plan: Continue zoloft Mood is stable (13) Obesity (BMI 30.0-34.9) Assessment & Plan: encourage lifestyle modifications and reduction of cardiovascular risk factors (14) History of renal cell carcinoma Assessment & Plan: s/p partial left nephrectomy 05/[address] Miguel Resuscitation Status Full Code VTE Prophylaxis Will order VTE Prophylaxis: No (ASA, Eliquis on hold. Will not do SCDS due to hx of PVD) Reason for no VTE drug order: Contraindicated (at this time) Reason no Mechanical VTE Order: Contraindicated (secondary to PVD) Note ATTENDING ADDENDUM Patient seen and examined care coordinated with Mar Merrill PA-C Labs and images reviewed This is a 47-year-old male with complicated past medical history coronary artery disease, hyperlipidemia hypertension, chronic A. fib with prior history of CVA, poorly controlled type 2 diabetes Presented with right upper quadrant pain started approximately 2 days ago associated with poor appetite, nausea Liver function test within normal limit Ultrasound of right upper quadrant shows: Cholelithiasis without evidence of acute cholecystitis Patient will be monitored in telemetry due to prior history of significant coronary artery disease Possible presenting symptom is secondary to GI related/gallbladder disease GI eval requested Patient will be kept n.p.o. with ice chips and sips until evaluated by GI DVT prophylaxis: Eliquis will be kept on hold in case patient needs surgical procedure CODE STATUS: Full code Please refer to further documentation by [place] Merrill PA-C for discussion of other chronic issues Katia Humphreys MD
[2018-04-16] MEDS: LABETALOL HCL IV 5 MG/ML 20ML IV PRN (20:55)
[2018-04-16] MEDS ORDERED: INSULIN GLARGINE SOLOSTAR 100 UNITS/ML 3 ML PEN SC SCH (21:00)
[2018-04-16] MEDS ORDERED: PREGABALIN 75 MG CAP PO SCH (21:00)
[2018-04-16] MEDS ORDERED: APIXABAN 5 MG TAB PO SCH (21:00)
[2018-04-16] MEDS ORDERED: SODIUM CHLORIDE 0.9% 1000ML 1,000 ML IV SCH (21:00)
[2018-04-16] MEDS ORDERED: HEPARIN SOD 5000 UNIT/0.5 ML CARP SQ SCH (21:00)
[2018-04-16] MEDS: MECLIZINE HCL 25 MG TAB PO SCH (21:01)
[2018-04-16] MEDS: DOXAZosin TAB 1 MG TAB PO SCH (21:02)
[2018-04-16] MEDS: DOCUSATE SODIUM/SENNA 50/8.6MG TAB PO SCH (21:02)
[2018-04-16] MEDS ORDERED: NURSING VERBAL MED ORDER ONE (21:15)
[2018-04-16] MEDS ORDERED: IV FLUIDS COMPLETED PRN (21:15)
[2018-04-16] MEDS: HYDROmorphone INJ 0.5 MG/0.5 ML SYR IV PRN (22:10)
[2018-04-16 22:11] VITALS: BP 163/96
[2018-04-16 23:10] VITALS: BP 140/81; PULSE 83; TEMP 36.8; O2SAT 94
[2018-04-16] MEDS: NITROGLYCERIN 2% OINTMENT 30GM TUBE EXT SCH (23:25)
[2018-04-17] MEDS: INSULIN ASPART 100 UNITS/ML 3 ML PEN SC SCH ×4 (00:57→12:27)
[2018-04-17 02:37] VITALS: BP 123/77; PULSE 86; TEMP 36.5; O2SAT 92
[2018-04-17] MEDS: HYDROmorphone INJ 0.5 MG/0.5 ML SYR IV PRN ×6 (04:35→22:28)
[2018-04-17] MEDS: NITROGLYCERIN 2% OINTMENT 30GM TUBE EXT SCH ×3 (06:14→17:42)
[2018-04-17] MEDS ORDERED: NURSING VERBAL MED ORDER ONE ×2 (06:15→17:30)
[2018-04-17] MEDS ORDERED: INSULIN ASPART 100 UNITS/ML 3 ML PEN SC SCH ×2 (07:00→21:00)
[2018-04-17] MEDS ORDERED: PERFLUTREN LIPID MICROSPHERE (DEFINITY) IV ONE (07:03)
[2018-04-17 07:34] VITALS: BP 112/58; PULSE 83; TEMP 36.4; O2SAT 91
[2018-04-17 07:38] LABS: HEMATOCRIT 38.6 % (42-52); HEMOGLOBIN 13.6 g/dL (14.0-18.0); MEAN CELL VOLUME 84.6 fL (80-100); MEAN CORPUSCULAR HEMOGLOBIN 29.8 pg (25-34); MEAN CORPUSCULAR HGB CONC 35.2 g/dl (32-36); MEAN PLATELET VOLUME 10.2 fL (7.4-10.4); PLATELET COUNT 159 K/uL (130-400); RED CELL DISTRIBUTION WIDTH CV 13.6 % (11.5-14.5); RED CELL DISTRIBUTION WIDTH SD 41.5 fL (36.4-46.3); WHITE BLOOD COUNT 6.92 K/uL (4.8-10.8)
[2018-04-17] MEDS: MECLIZINE HCL 25 MG TAB PO SCH ×2 (07:38→19:33)
[2018-04-17] MEDS: DOCUSATE SODIUM/SENNA 50/8.6MG TAB PO SCH ×2 (07:39→19:33)
[2018-04-17 08:22] LABS: ALBUMIN 3.4 gm/dl (3.4-5.0); ALKALINE PHOSPHATASE 81 U/L (45-117); ALT/SGPT 28 U/L (12-78); AST/SGOT 11 U/L (15-37); BLOOD UREA NITROGEN 18 mg/dl (7-18); CALCIUM 8.9 mg/dl (8.5-10.1); CARBON DIOXIDE 31 mmol/L (21-32); CHOLESTEROL 112 mg/dl (0-200); GLUCOSE 188 mg/dl (70-99); LDL CHOLESTEROL CALCULATED 48 mg/dl; POTASSIUM 3.5 mmol/L (3.5-5.1); SODIUM 135 mmol/L (136-145)
[2018-04-17] MEDS ORDERED: CYANOCOBALAMIN 500 MCG TAB (VIT B-12) PO SCH (09:00)
[2018-04-17] MEDS ORDERED: METOPROLOL SUCC 50MG EXT REL TAB PO SCH (09:00)
[2018-04-17] MEDS ORDERED: ASPIRIN 81 MG ECTAB PO SCH (09:00)
[2018-04-17] MEDS ORDERED: ATORVASTATIN 40 MG TAB PO SCH (09:00)
[2018-04-17] MEDS ORDERED: SERTRALINE HCL 50 MG TAB PO SCH (09:00)
[2018-04-17] MEDS ORDERED: INSULIN GLARGINE SOLOSTAR 100 UNITS/ML 3 ML PEN SC SCH (09:00)
[2018-04-17] MEDS ORDERED: NON-FORMULARY MEDICATION (Omeprazole (Prilosec) 20 MG) PO SCH (09:00)
[2018-04-17] MEDS ORDERED: DILTIAZEM HCL 240 MG CAPCR PO SCH (09:00)
[2018-04-17] MEDS ORDERED: MULTIVITAMIN TAB PO SCH (09:00)
[2018-04-17] MEDS ORDERED: NON-FORMULARY MEDICATION (Probiotic Product (Probiotic) 1 CAP) PO SCH (09:00)
--- NOTE | 2018-04-17 09:04 | Pharmacy Progress Note ---
Glycemic Control Intl Consult Date of Service Apr 17, 2018. Scope Glycemic Pharmacist consulted by Dr Humphreys on 04/16/18 for glycemic control and to write orders per [facility] inpatient glycemic control protocol Objective Weight (Kilograms): 125.200 Accuchecks BSG (last 24hrs): Test 04/16/18 13:59 04/16/18 20:51 04/16/18 23:53 04/17/18 04:27 Random Glucose 309 mg/dl (70-99) Bedside Glucose 255 mg/dl (70-99) 254 mg/dl (70-99) 222 mg/dl (70-99) Test 04/17/18 06:07 04/17/18 07:25 Bedside Glucose 200 mg/dl (70-99) Random Glucose 188 mg/dl (70-99) Laboratory Data (last 24hrs) Test 04/16/18 13:59 04/17/18 07:25 Anion Gap 11.0 mmol/L 7.0 mmol/L BUN/Creatinine Ratio 11.8 18.2 Blood Urea Nitrogen 15 mg/dl 18 mg/dl Creatinine 1.29 mg/dl 1.00 mg/dl Potassium Level 3.9 mmol/L 3.5 mmol/L Sodium Level 131 mmol/L 135 mmol/L White Blood Count 7.31 K/uL 6.92 K/uL Red Blood Count 5.26 M/uL Hemoglobin 16.0 g/dL Hematocrit 43.7 % Mean Corpuscular Volume 83.1 fL Mean Corpuscular Hemoglobin 30.4 pg Mean Corpuscular Hemoglobin Concent 36.6 g/dl Platelet Count 174 K/uL Mean Platelet Volume 10.9 fL Neutrophils (%) (Auto) 76.6 % Lymphocytes (%) (Auto) 17.0 % Monocytes (%) (Auto) 5.2 % Eosinophils (%) (Auto) 0.8 % Basophils (%) (Auto) 0.3 % Neutrophils # (Auto) 5.60 K/uL Lymphocytes # (Auto) 1.24 K/uL Monocytes # (Auto) 0.38 K/uL Eosinophils # (Auto) 0.06 K/uL Basophils # (Auto) 0.02 K/uL Recent Pertinent Medications Outpatient Anti-diabetic Regimen: * Metformin 1 gm BID * Glipizide 20 mg BID * Tradjenta 5 mg daily * A1c = 8.9 % 04/05/18 The patient is currently receiving: * Basal insulin: Lantus 6 units every 12 hours * Correctional Insulin: Novolog Correction per scale ACHS Goal Range: Low 110 mg/dL - High 140 mg/dL Correction Factor: 30 mg/dL/unit * Prandial insulin: Per carb ratio of 1 unit per 10 grams CHO consumed * Oral Agents: None at this time Risk Factors for Insulin Resistance/Sensitivity: * Diet: NPO Assessment & Plan ASSESSMENT: * 47 y/o male admitted for chest pain. History of type 2 diabetes managed with oral agents. Elevated A1c, indicating not well controlled at home. * Pt is maintained on oral antidiabetic agents as an outpatient * Oral agents are not recommended for inpatient use d/t drug interactions, changing PO intake, and difficulty titrating for acute hyper/hypoglycemia. ADA recommends re-initiating outpatient oral agents 1-2 days prior to discharge if/ when appropriate if they were held on admission. * Will hold oral agents for admission and utilize SQ basal bolus insulin regimen which is the recommended regimen for inpatient glycemic control. * Will initiate weight based insulin dosing for insulin vic patient and titrate based on BSG trends. * BSGs have improved but remain above goal this AM (received 7 units of correctional insulin overnight). Will increase basal to wt/stress of 2 using insulin calculator and tighten CF as well. PLAN FOR INPATIENT GLYCEMIC CONTROL: * Continue to hold outpatient oral diabetes medications * Basal insulin - increase * Lantus 10 units BID * Correctional Insulin with NOVOLOG per scale ACHS or Q6hrs while NPO - tighten CF * Goal Range: Low 110 mg/dL - High 140 mg/dL * Correction Factor: 25 mg/dL/unit * Nutritional / Prandial insulin per carb ratio of 1 unit per 10 grams CHO consumed Discharge Recommendations: * A1c indicates suboptimal control on 3 oral agents. If patient did not recently initiate one of these, may need to consider starting once daily basal insulin - would recommend Lantus (or Basaglar) 10 units daily to start Thank you.
--- NOTE | 2018-04-17 09:04 | ECHOCARDIOGRAM REPORT ---
*NOTICE TO RECEIVING DEMOCRAT AGENCY This information is strictly Confidential and protected under [place] law. [place] law prohibits you from making any further disclosure of this information unless further disclosure is expressly permitted by the written consent of the person to whom it pertains or is authorized by law. A general authorization for the release of medical or other information is not sufficient for this purpose. Hospital accepts no responsibility if the information is made available to any other person, INCLUDING THE PATIENT. Interpretation Summary * Name: DARCIE MORIN Study Date: 04/17/2018 06:32 AM BP: 123/77 mmHg * Patient Location: C.2T\S\S238\S\2 HR: 86 * : 1970 (M/d/yyyy) Gender: Male Height: 73 in * Age: 47 yrs Ethnicity: CA Weight: 233 lb * Ordering Physician: Katia Humphreys * Referring Physician: Self, Referred * Performed By: Janet Portillo RDCS * * Reason For Study: Chest pain * BSA: 2.3 m2 * -- Conclusions -- * The left ventricle is normal in size. * There is mild concentric left ventricular hypertrophy. * There is focal inferior and inferoseptal basal akinesis with thinning and scar. Posterior wall is mildly hypokinetic at the base. All other wall segments contract normally * Ejection Fraction = 50-55%. * There is no significant valvular disease * There is trace mitral regurgitation. Procedure Details * A complete two-dimensional transthoracic echocardiogram was performed (2D, M-mode, Doppler and color flow Doppler). * A contrast injection of Definity was performed to improve assessment of LV function. * Contrast was injected into an intravenous site in the right arm. * One vial of Definity ultrasound contrast was diluted in normal saline to a total volume of 10 ml. A total of '2' ml of solution was administered during imaging. * Lot # [id number] of Definity utilized for procedure. * Expiration date MAR 25. * The attending nurse who injected the contrast agent was Carline Monroy RN. Left Ventricle * The left ventricle is normal in size. * There is mild concentric left ventricular hypertrophy. * Ejection Fraction = 50-55%. * There is focal inferior and inferoseptal basal akinesis with thinning and scar. Posterior wall is mildly hypokinetic at the base. All other wall segments contract normally Right Ventricle * The right ventricle is normal in size and function. Atria * The left atrial size is normal. * Right atrial size is normal. * No ASD detected; PFO is not assessed. Mitral Valve * The mitral valve anatomy is normal. * There is no mitral valve stenosis. * There is trace mitral regurgitation. Tricuspid Valve * The tricuspid valve anatomy is normal. * There is no tricuspid stenosis. * There is trace tricuspid regurgitation. Aortic Valve * The aortic valve is trileaflet. * No hemodynamically significant valvular aortic stenosis. * No aortic regurgitation is present. Pulmonic Valve * The pulmonic valve is not well visualized. Great Vessels * The aortic root is normal size. Pericardium/Pleural * There is no pericardial effusion. Great Vessels * Normal inferior vena cava diameter and respiratory variation suggests normal central venous pressure. MMode 2D Measurements and Calculations IVSd 1.2 cm LVIDd 5.2 cm LVIDs 3.7 cm LVPWd 0.97 cm IVS/LVPW 1.2 FS 28.6 % EDV(Teich) 127.3 ml ESV(Teich) 57.5 ml EF(Teich) 54.8 % EDV(cubed) 137.5 ml ESV(cubed) 49.9 ml EF(cubed) 63.7 % LV mass(C)d 211.1 grams LV mass(C)dI 91.9 grams/m\S\2 SV(Teich) 69.8 ml SI(Teich) 30.4 ml/m\S\2 SV(cubed) 87.5 ml SI(cubed) 38.1 ml/m\S\2 Ao root diam 3.6 cm Ao root area 10.2 cm\S\2 ACS 2.4 cm asc Aorta Diam 3.6 cm LVOT diam 2.1 cm LVOT area 3.4 cm\S\2 LVAd ap4 45.1 cm\S\2 LVLd ap4 9.0 cm EDV(MOD-sp4) 184.5 ml EDV(sp4-el) 192.6 ml LVAs ap4 26.5 cm\S\2 LVLs ap4 6.9 cm ESV(MOD-sp4) 84.5 ml ESV(sp4-el) 86.4 ml EF(MOD-sp4) 54.2 % EF(sp4-el) 55.2 % LVAd ap2 37.9 cm\S\2 LVLd ap2 9.1 cm EDV(MOD-sp2) 133.6 ml EDV(sp2-el) 134.6 ml LVAs ap2 22.7 cm\S\2 LVLs ap2 6.7 cm ESV(MOD-sp2) 65.6 ml ESV(sp2-el) 65.8 ml EF(MOD-sp2) 50.9 % EF(sp2-el) 51.1 % LVLd %diff 1.2 % EDV(MOD-bp) 155.9 ml LVLs %diff -3.92 % ESV(MOD-bp) 76.1 ml EF(MOD-bp) 51.2 % SV(MOD-sp4) 100.0 ml SI(MOD-sp4) 43.6 ml/m\S\2 SV(MOD-sp2) 68.0 ml SI(MOD-sp2) 29.6 ml/m\S\2 SV(MOD-bp) 79.8 ml SI(MOD-bp) 34.8 ml/m\S\2 SV(sp4-el) 106.2 ml SI(sp4-el) 46.3 ml/m\S\2 SV(sp2-el) 68.8 ml SI(sp2-el) 30.0 ml/m\S\2 Doppler Measurements and Calculations MV E max harpal 68.2 cm/sec MV A max harpal 63.4 cm/sec MV E/A 1.1 MV dec time 0.21 sec Ao V2 max 111.7 cm/sec Ao max PG 5.0 mmHg Ao max PG (full) 0.55 mmHg TAYLOR(V,A) 3.2 cm\S\2 TAYLOR(V,D) 3.2 cm\S\2 LV V1 max PG 4.4 mmHg LV V1 max 105.3 cm/sec MR max harpal 544.4 cm/sec MR max PG 118.6 mmHg MR mean harpal 438.9 cm/sec MR mean PG 85.6 mmHg MR VTI 170.7 cm PA V2 max 104.4 cm/sec PA max PG 4.4 mmHg PA acc slope 810.0 cm/sec\S\2 PA acc time 0.10 sec TR max harpal 93.2 cm/sec PA pr(Accel) 33.2 mmHg
--- NOTE | 2018-04-17 10:56 | Gastrointestinal Consultation ---
Gastrointestinal Consultation Date of Consultation: Apr 17, 2018 History of Present Illness Patient is a 47 year old male who presents to the hospital and we have been consulted by the hospitalist service for complaints of right upper quadrant as well as right back pain. He has a history of multiple medical problems including ischemic cardiomyopathy , coronary artery disease, hypertension hyperlipidemia uncontrolled diabetes, neuropathy, paroxysmal atrial fibrillation on Eliquis, history of a cerebrovascular accident, morbid obesity and a left renal cell carcinoma status post partial nephrectomy and May 2017. He presented to the hospital with what he describes to me which is different than presented in the HPI of right sided pain underneath his rib cage radiating around to his back, that was severe in nature and lasted for several hours prompting him to present to the emergency room. The symptoms came on upon eating breakfast on but continued continued and intensified prompting presentation to the ER. He has never had symptoms such like this in the past, he states that the pain is certainly made worse by moving, but also complains of a burning substernal chest issue as well as lower back pain which he thinks that are 3 separate problems. His pain upon resting right now is in about a 1 out of 10. Labs reviewed include LFTs, as well as lipase which were unremarkable. Right upper quadrant ultrasound performed in the emergency room showed cholelithiasis without cholecystitis. CT PE protocol was performed that showed an enlarged heart however no evidence of pulmonary emboli. Denies recent trauma, denies recent weight loss, does admit to cold chills but otherwise is unremarkable. He does have a significant cardiac history including recent position on 09 April that revealed 100% RCA occlusion with filling collaterals 70% PDA as well as a proximal LAD stenosis up to 50%. Medical management was recommended. In the ER he was given IV pain control with morphine, fluids, troponin was 0.0 3 repeat was 0.05 with an elevated d-dimer 530. Past Medical/Surgical History Medical Problems: (1) Hyperglycemia Status: Acute (2) Tachycardia Status: Acute Family History Diabetes mellitus FH: heart disease Hypertension Kidney disease Social History Smoking Status: Former Smoker (quit 01/23/09 with 100 pack year hx) Alcohol Use: none Drug Use: none Marital Status: Housing Status: lives with family Occupation Status: unemployed Allergies Coded Allergies: Oxycodone (Unverified Adverse Reaction, Intermediate, HEADACHE, 04/16/18) Current Medications Home Meds and Scripts Medications Dose Route/Sig Max Daily Dose Days Date Category Dose Instructions Lyrica (Pregabalin) 75 Mg Cap 75 Mg PO TID 04/16/18 Reported Toprol-Xl (Metoprolol Succinate) 100 Mg Tabcr 100 Mg PO DAILY 04/16/18 Reported Lipitor (Atorvastatin Calcium) 40 Mg Tab 80 Mg PO DAILY 30 04/09/18 Rx Senna Plus (Sennosides-Docusate Sodium) 1 Tab Tab 2 Tabs PO BID 04/08/18 Reported Probiotic (Probiotic Product) 1 Cap Cap 1 Cap PO DAILY 04/08/18 Reported Multivitamin (Multiple Vitamin) 1 Tab Tab 1 Tab PO DAILY 90 04/08/18 Reported Tradjenta (Linagliptin) 5 Mg Tab 5 Mg PO DAILY 04/08/18 Reported Hctz (Hydrochlorothiazide) 25 Mg Tab 25 Mg PO DAILY 04/08/18 Reported Eliquis (Apixaban) 5 Mg Tab 5 Mg PO BID 04/08/18 Reported Diltiazem Cd (Diltiazem Hcl Coated Beads) 240 Mg Cap 240 Mg PO DAILY 04/08/18 Reported Vitamin B-12 (Cyanocobalamin) 1,000 Mcg Tab 2,000 Mcg PO DAILY 12/01/16 Reported Glucophage (Metformin Hcl) 1,000 Mg Tab 1,000 Mg PO BID 12/01/16 Reported Vibramycin (Doxycycline Hyclate) 50 Mg Cap 50 Mg PO BID 12/01/16 Reported Levitra (Vardenafil HCl) 20 Mg Tab 20 Mg PO DIRECTED 12/01/16 Reported Glucotrol (Glipizide) 10 Mg Tab 20 Mg PO BID 12/01/16 Reported take 30 min before morning and evening meals. Tylenol (Acetaminophen) 500 Mg Tab 1,000 Mg PO Q8 PRN 12/01/16 Reported Prilosec (Omeprazole) 20 Mg Cap 20 Mg PO DAILY 12/01/16 Reported Zoloft (Sertraline HCl) 50 Mg Tab 100 Mg PO DAILY 12/01/16 Reported Cozaar (Losartan Potassium) 100 Mg Tab 100 Mg PO DAILY 12/01/16 Reported Aspirin Ec (Aspirin) 81 Mg Tab 81 Mg PO DAILY 12/01/16 Reported Cardura (Doxazosin Mesylate) 2 Mg Tab 1 Mg PO DAILY 12/01/16 Reported Ultram (Tramadol HCl) 50 Mg Tab 50 Mg PO TID 12/01/16 Reported Zofran Odt (Ondansetron HCl) 4 Mg Tab 4 Mg SL Q8 PRN 12/01/16 Reported Meclizine Hcl 25 Mg Tab 25 Mg PO BID 12/01/16 Reported Review of Systems Constitutional: + see HPI Eyes: No see HPI, No worsening of vision, No eye pain, No redness, No discharge , No diplopia, No problem reported ENT: No see HPI, No hearing loss, No unusual epistaxis, No nasal symptoms, No sore throat, No tinnitus, No dental problems, No trouble swallowing, No pain on swallowing, No problem reported Respiratory: + see HPI, No cough, No sputum, No wheezing, No shortness of breath, No dyspnea on exertion, No dyspnea at rest, No hemoptysis, No problem reported Cardiac: + see HPI Abdomen: + see HPI Musculoskeletal: + muscle pain (Right back) Neuro: No see HPI, No memory loss, No paralysis, No weakness, No numbness/ tingling, No vertigo, No balance problems, No problem reported Psych: No see HPI, No depression symptoms, No anhedonism, No anxiety, No insomnia, No substance abuse, No problem reported Physical Exam Date Time Temp Pulse Resp B/P (MAP) Pulse Ox O2 Delivery O2 Flow Rate FiO2 04/17/18 08:00 Room Air 04/17/18 07:34 36.4 83 19 112/58 (76) 91 Room Air 04/17/18 02:37 36.5 86 17 123/77 (92) 92 Room Air 04/16/18 23:35 Room Air 04/16/18 23:10 36.8 83 17 140/81 (100) 94 Room Air 04/16/18 22:11 163/96 (118) 04/16/18 20:15 36.8 93 18 177/112 95 Room Air 04/16/18 20:07 96 18 180/114 95 04/16/18 20:04 96 18 180/114 95 Nasal Cannula 2.0 04/16/18 20:04 91 17 96 04/16/18 20:01 150/120 04/16/18 19:59 94 17 97 04/16/18 19:59 94 17 97 04/16/18 19:56 180/128 04/16/18 19:54 95 19 98 04/16/18 19:51 199/131 8/10/18 19:49 95 15 97 04/16/18 19:46 196/123 04/16/18 19:44 95 12 96 04/16/18 19:41 188/129 04/16/18 19:39 98 17 98 04/16/18 19:38 93 18 98 04/16/18 19:36 190/127 04/16/18 19:33 101 15 97 04/16/18 19:31 187/127 04/16/18 19:28 91 7 97 04/16/18 19:26 189/126 04/16/18 19:23 93 19 182/120 98 04/16/18 19:21 182/123 04/16/18 19:18 89 17 177/121 97 04/16/18 19:16 180/127 04/16/18 19:13 95 15 176/118 96 04/16/18 19:11 184/116 04/16/18 19:08 97 11 179/120 96 04/16/18 19:06 163/125 04/16/18 19:03 94 12 185/121 97 04/16/18 19:02 95 16 183/124 97 Room Air 04/16/18 18:49 93 14 180/132 98 Room Air 04/16/18 18:18 89 172/115 04/16/18 17:00 89 16 173/117 95 Room Air 04/16/18 16:34 92 16 192/120 95 Room Air 04/16/18 15:23 93 12 183/104 88 Room Air 04/16/18 14:02 71 04/16/18 13:52 99 Room Air 04/16/18 13:44 36.7 75 24 182/114 100 Room Air General Appearance: WD/WN, + obese, + pertinent finding (Lying in bed without distress) ENT: normal ENT inspection Neck: supple Respiratory/Chest: chest non-tender, lungs clear Cardiovascular: regular rate, rhythm, no edema, no gallop Abdomen: normal bowel sounds, non tender, soft Upon trying to get up out of the bed with assistance on pulling on his right side he had a return of what he described as similar pain that brought him to the emergency room. Laboratory Results Last 24 Hours Test 04/16/18 13:59 04/16/18 14:17 04/16/18 15:30 04/16/18 16:30 White Blood Count 7.31 K/uL Red Blood Count 5.26 M/uL Hemoglobin 16.0 g/dL Hematocrit 43.7 % Mean Corpuscular Volume 83.1 fL Mean Corpuscular Hemoglobin 30.4 pg Mean Corpuscular Hemoglobin Concent 36.6 g/dl Platelet Count 174 K/uL Mean Platelet Volume 10.9 fL Neutrophils (%) (Auto) 76.6 % Lymphocytes (%) (Auto) 17.0 % Monocytes (%) (Auto) 5.2 % Eosinophils (%) (Auto) 0.8 % Basophils (%) (Auto) 0.3 % Neutrophils # (Auto) 5.60 K/uL Lymphocytes # (Auto) 1.24 K/uL Monocytes # (Auto) 0.38 K/uL Eosinophils # (Auto) 0.06 K/uL Basophils # (Auto) 0.02 K/uL RDW Standard Deviation 39.9 fL RDW Coefficient of Variation 13.4 % Immature Granulocyte % (Auto) 0.1 % Immature Granulocyte # (Auto) 0.01 K/uL D-Dimer 530 ug/L FEU Sodium Level 131 mmol/L Potassium Level 3.9 mmol/L Chloride Level 94 mmol/L Carbon Dioxide Level 26 mmol/L Anion Gap 11.0 mmol/L Blood Urea Nitrogen 15 mg/dl Creatinine 1.29 mg/dl Est Creatinine Clear Calc Drug Dose 90.4 ml/min Estimated GFR () 76.0 Estimated GFR (Non- 65.6 BUN/Creatinine Ratio 11.8 Random Glucose 309 mg/dl Calcium Level 10.3 mg/dl Total Bilirubin 1.0 mg/dl Direct Bilirubin 0.2 mg/dl Aspartate Amino Transf (AST/SGOT) 16 U/L Alanine Aminotransferase (ALT/SGPT) 38 U/L Alkaline Phosphatase 126 U/L Pro-B-Type Natriuretic Peptide 1741 pg/ml Total Protein 8.2 gm/dl Albumin 4.2 gm/dl Amylase Level 59 U/L Lipase 139 U/L Beta-Hydroxybutyric Acid 6.10 mg/dL Bedside Troponin I 0.030 ng/ml 0.050 ng/ml Urine Color YELLOW Urine Appearance CLEAR Urine pH 7.5 Urine Specific [place] 1.038 Urine Protein NEG Urine Glucose (UA) 3+ Urine Ketones 1+ Urine Occult Blood NEG Urine Nitrite NEG Urine Bilirubin NEG Urine Urobilinogen NEG Urine Leukocyte Esterase NEG Test 04/16/18 20:51 04/16/18 23:53 04/17/18 00:19 04/17/18 04:27 Bedside Glucose 255 mg/dl 254 mg/dl 222 mg/dl Troponin I 0.017 ng/ml Test 04/17/18 06:07 04/17/18 07:25 Bedside Glucose 200 mg/dl White Blood Count 6.92 K/uL Red Blood Count 4.56 M/uL Hemoglobin 13.6 g/dL Hematocrit 38.6 % Mean Corpuscular Volume 84.6 fL Mean Corpuscular Hemoglobin 29.8 pg Mean Corpuscular Hemoglobin Concent 35.2 g/dl RDW Standard Deviation 41.5 fL RDW Coefficient of Variation 13.6 % Platelet Count 159 K/uL Mean Platelet Volume 10.2 fL Sodium Level 135 mmol/L Potassium Level 3.5 mmol/L Chloride Level 97 mmol/L Carbon Dioxide Level 31 mmol/L Anion Gap 7.0 mmol/L Blood Urea Nitrogen 18 mg/dl Creatinine 1.00 mg/dl Est Creatinine Clear Calc Drug Dose 126.6 ml/min Estimated GFR () 103.4 Estimated GFR (Non- 89.2 BUN/Creatinine Ratio 18.2 Random Glucose 188 mg/dl Calcium Level 8.9 mg/dl Magnesium Level 1.9 mg/dl Total Bilirubin 0.5 mg/dl Direct Bilirubin 0.2 mg/dl Aspartate Amino Transf (AST/SGOT) 11 U/L Alanine Aminotransferase (ALT/SGPT) 28 U/L Alkaline Phosphatase 81 U/L Troponin I < 0.015 ng/ml Total Protein 7.0 gm/dl Albumin 3.4 gm/dl Triglycerides Level 158 mg/dl Cholesterol Level 112 mg/dl HDL Cholesterol 32 mg/dl LDL Cholesterol, Calculated 48 mg/dl VLDL Cholesterol, Calculated 32 mg/dl Cholesterol/HDL Ratio 3.5 Beta-Hydroxybutyric Acid 1.57 mg/dL Impression Patient is a 47 year old male presenting with right sided pain of the lower chest with radiation around to possibly his abdomen and right side of his back. Plan Etiology of his pain upon presentation is not entirely clear, the differential diagnosis would include GI pathology such as peptic ulcer disease or more likely to be gallbladder pathology. He did not have evidence of acute cholecystitis on his ultrasound. However that does not rule out chronic gallbladder dysfunction. Other etiologies are likely musculoskeletal in nature , less likely viral induced such as an evolving zoster, possibly cardiac etiologies but given his recent catheterization and his known history and is careful medical care think this is likely even less. Fortunately now his pain seems to be improved. Recommendations 1. Await cardiology evaluation 2. Increase PPI to twice daily avoid all nonsteroidals 3. Okay from a standpoint for liquid diet 4. HIDA scan if pain persists or returns 5. If pain persists consider EGD if HIDA is negative and cardiac etiologies are comfortably ruled out. Would asked that his Eliquis need to be held though however, which may not be prudent just yet. Call with any questions and will follow.
[2018-04-17] MEDS ORDERED: PANTOprazole INJ 40 MG in SYRINGE 0 ML IV SCH ×2 (11:00→21:00)
[2018-04-17 11:37] VITALS: BP 134/84; PULSE 79; TEMP 36.8; O2SAT 90
[2018-04-17] MEDS ORDERED: POTASSIUM CHLORIDE 20 MEQ TABCR PO STA (13:28)
--- NOTE | 2018-04-17 14:31 | CARDIOLOGY CONSULTATION ---
DATE OF CONSULTATION: 04/17/2018 REFERRING: Katia Humphreys MD and [place]. INDICATIONS: Right-sided flank pain, history of coronary disease. HISTORY OF PRESENT ILLNESS: Patient is a 47-year-old male with complex past history which includes longstanding diabetes mellitus, history of paroxysmal atrial fibrillation with cardioembolic stroke, atherosclerotic coronary artery disease. Screening nuclear study performed prior to initiating antiarrhythmic therapy demonstrated abnormal perfusion abnormality involving the inferior wall. Subsequent cardiac catheterization performed on 04/09/2018 demonstrated chronic right coronary artery occlusion with collateral fill. In addition, there was a tortuous left anterior descending with moderate narrowing of the mid vessel at 50%. This was interrogated and found to be nonobstructive by IVUS imaging. Patient was also noted to have branch vessel narrowing of a small posterior descending artery of 70%. He was begun on medical management which included increased dosing of lipid lowering therapies. He has remained chronically anticoagulated with apixaban post procedure. Patient presents in this admission on 04/16/2018 noting symptoms of right-sided flank and upper epigastric pain, severe and sharp in nature, worse with movement and inspiration, no specific relationship to food. Notes no tachypalpitations, syncope, or near syncope. Notes no unexplained fevers or infections. Has been taking medications as prescribed. The patient was substantially hypertensive on presentation. He notes no melena or hematochezia. Last bowel movement was a day prior to admission. Notes no dysuria or hematuria. Does note rumbling abdominal discomfort. PAST MEDICAL HISTORY: Notable for as described above. In addition, patient carries a history of prior renal cell carcinoma, status post resection, obesity, type 2 diabetes mellitus, and chronic vertigo. PAST SURGICAL HISTORY: Notable for amputation of right toe, prior laminectomy, partial nephrectomy in 2017, and tonsillectomy. FAMILY HISTORY: Positive for hypertension and coronary disease. SOCIAL HISTORY: Patient is a nonsmoker since 2008 with greater than [id number] history of tobacco use by history. Uses currently no significant alcoholic beverages. ALLERGIES: OXYCODONE. MEDICATIONS: Prior to hospitalization were apixaban 5 mg twice per day, aspirin 81 mg per day, atorvastatin 80 mg per day representing an increase in dosage, vitamin B12 of 2000 mcg p.o. daily, diltiazem CD 240 mg p.o. daily, doxazosin 1 mg at bedtime, doxycycline 50 mg b.i.d., glipizide 20 b.i.d., hydrochlorothiazide 25 daily, Tradjenta 5 mg p.o. daily, losartan 100 mg p.o. daily, meclizine p.r.n., Glucophage 1000 mg b.i.d., metoprolol succinate 100 mg p.o. daily, multivitamin per day, omeprazole 20 mg p.o. daily, Lyrica 75 t.i.d., Zoloft 100 mg p.o. daily, tramadol 50 mg t.i.d., Levitra p.r.n. PHYSICAL EXAMINATION: GENERAL: Patient is currently in moderate discomfort with movement. VITAL SIGNS: Heart rate is 80, blood pressure is 134/84. HEENT: Normocephalic, atraumatic. NECK: Thin. There is no distinct jugular venous distention. There are no carotid bruits. RESPIRATORY: Lungs are clear to auscultation. CARDIOVASCULAR: Regular, with somewhat distant heart sounds. There is no audible murmur or rub. PMI is nondisplaced. GASTROINTESTINAL: Abdomen is obese and soft. There is tenderness in the right upper quadrant on deep palpation. There is no distinct rebound or guarding. EXTREMITIES: Without cyanosis or clubbing. There is no peripheral edema. There are intact distal pulses. There is no brachial femoral delay. LABORATORY DATA: White cell count is 6.9, hemoglobin is 13.6, platelet count is 159. Sodium is 135, potassium is 3.5, chloride is 97, bicarbonate is 31, BUN is 18, creatinine is 1.0, glucose is 188. AST and ALT are normal. Cholesterol is 112, with an HDL of 32. IMAGING: D-dimer on presentation was elevated with resultant CT scan of the chest reflecting no evidence of pulmonary embolus or aortic dissection, mild splenomegaly was observed as well as cholelithiasis without cholecystitis on ultrasound of the abdomen. Chest x-ray revealed no infiltrate or edema. EKG on serial testing demonstrates sinus rhythm, old Q-wave inferiorly, no acute ST segment changes. Echocardiogram performed this morning reveals scarred area of basilar portion of the inferior posterior wall and inferior septum with generally preserved LV systolic function, EF 50%-55%, no significant valvular disease, no evidence of pulmonary hypertension. IMPRESSION: Complex 47-year-old male with multiple medical issues and multiple medication therapies. He was recently evaluated for ischemic heart disease discerned on stress nuclear imaging as a part of her regimen to evaluate prior antiarrhythmic therapy for chronic/paroxysmal atrial fibrillation. Patient remains in sinus rhythm on presentation today. Symptoms appear noncardiac in nature, and serial troponins are negative for elevation. EKG reveals no evolution. Chronic coronary artery disease was well established by recent cardiac catheterization over 1 week ago. Blood pressures were markedly hypertensive on presentation but appeared improved today. PLAN: Evaluation currently ongoing. Would continue the usual prehospital medications as well as topical nitrates and then convert to oral nitrates. Identification source of flank pain will be warranted if course proceeds. Pain medication control appears to have aid in the patient's blood pressure. Will follow along. No signs or symptoms to suggest acute cardiac ischemia. CAITY
[2018-04-17 15:07] VITALS: BP 137/71; PULSE 85; TEMP 37.1; O2SAT 92
--- NOTE | 2018-04-17 16:34 | Progress Note ---
Internal Med Progress Note Date of Service: Apr 17, 2018. Provider Documentation: SUBJECTIVE: Complains of right upper quadrant pain, has improved from prior No nausea No fever chills, no chest pain or shortness of breath Diet advanced to clears tolerating well OBJECTIVE: Vital Signs-as noted below Exam: General-no sign of distress, comfortable Eyes-sclera nonicteric, pupils bilateral equal reactive light extraocular muscle intact ENT-moist oral mucosa Neck-no JVD, no carotid bruit trachea midline Lungs-clear to auscultate no wheeze or Heart-irregular Abdomen-positive tenderness with right upper quadrant, no rebound, abdomen is soft, bowel sounds active Extremities-no rash or deformity, no lower extremity edema Neuro-no focal neurological deficit Psych-alert and awake oriented 3 ,normal mood and affect Lymph nodes-no lymphadenopathy Lab data as noted below. ASSESSMENT & PLAN: RT UPPER QUADRANT PAIN : Presented with right upper quadrant discomfort/sharp pain for more than 2 days Associated with nausea vomiting Symptom improved overnight Fever chills Ultrasound of gallbladder: Acute cholelithiasis without sonographic evidence of acute cholecystitis/ hepatomegaly with severe hepatic steatosis Sonographic Cash sign absent. Common bile duct measures up to 0.5 cm in diameter Appreciate input by GI Feels possible symptoms secondary to chronic cholecystitis versus peptic ulcer disease Will need a HIDA scan, and possible EGD as outpatient if symptoms continue Recommend advance diet to clears IV fluids HYPERTENSIVE URGENCY Possible secondary to pain and discomfort Patient is continued with beta-johanna, Cardizem As needed labetalol ordered for SBP more than 160 HISTORY OF PAROXYSMAL AFIB : Eliquis on hold as patient may need GI/surgical procedure Patient is continued with Cardizem, beta-johanna Monitor in telemetry POORLY CONTROLLED TYPE 2 DIABETES WITH HYPERGLYCEMIA home Diabetic meds : -Metformin 1 gm BID -Glipizide 20 mg BID -Tradjenta 5 mg daily * History elevated more than 300, with elevated beta hydroxybutyrate acid on admission No evidence of DKA, normal bicarb normal anion gap Beta hydroxybutyrate acid level normalized after IV fluids and subcu insulin poorly controlled diabetes with his average blood sugar runs between 250-300 A1c = 8.9 % 04/05/18 Appreciate pharmacy input for glycemic management Given 6 mg IV insulin bolus, Followed by basal Lantus and insulin sliding scale Appreciate pharmacy input for glycemic management Hemoglobin A1c shows suboptimal control of blood sugar in spite of being on 3 oral meds Patient will benefit with transition to insulin for better management of blood sugar and improvement of hemoglobin A1c Pharmacy recommendation Patient should be discharged on basal Lantus 10 units daily nutrition educator consulted Dietary/nutrition consulted for counseling for diabetic diet Patient will benefit with outpatient diabetic clinic follow-up ACUTE KIDNEY INJURY WITH CKD STAGE III Possibly secondary to poor p.o. intake, blood glycemia, dehydration Baseline creatinine 0.9 Presented with elevated creatinine of more than 1 (patient also received IV contrast for CTA of the chest) Renal function returned to baseline after IV hydration Continue to follow PRP Avoid NSAIDs HYPERLIPIDEMIA Statin on hold for possible gallbladder disease Ordered for fasting lipid panel in a.m. 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 status/acute abdomen HISTORY OF CVA History of CVA Eliquis on hold for in early 2016, with no focal neurological deficit Possible secondary to paroxysmal A. fib Patient will be continued with Cardizem, beta johanna for rate and rhythm controlled Eliquis on hold for possible surgery OBESITY(BMI 30.034.9) Encourage lifestyle modification and reduction of cardiovascular risk factor Patient is counseled for diet and exercise HISTORY OF RENAL CELL CARCINOMA Status post partial left nephrectomy on 05/[address] Miguel at [facility] HISTORY OF DEPRESSION: Zoloft on hold, for n.p.o. status, possible cholecystitis Mood stable CODE STATUS: Full code DVT PROPHYLAXIS SCD and teds Eliquis kept on hold for possible surgical procedure DISPOSITION Expected to be discharged home when medically stable Medicine follow-up with Dr. Sofia at [facility] [place] Vital Signs: Date Time Temp Pulse Resp B/P (MAP) Pulse Ox O2 Delivery O2 Flow Rate FiO2 04/18/18 08:08 117 04/18/18 07:33 36.5 112 20 182/111 (134) 91 Room Air 175/113 (133) 04/18/18 02:52 36.9 93 19 182/113 (136) 96 Room Air 04/18/18 01:39 94 164/104 (124) 04/17/18 23:47 37.1 86 25 186/114 (138) 98 Room Air 04/17/18 20:00 Room Air 04/17/18 19:45 36.6 85 18 147/80 (102) 93 Room Air 04/17/18 15:07 37.1 85 22 137/71 (93) 92 Room Air 04/17/18 11:37 36.8 79 20 134/84 (101) 90 Room Air Lab Results: Results Past 24 Hours Test 04/17/18 12:21 04/17/18 13:02 04/17/18 17:21 04/17/18 19:53 Range/Units Bedside Glucose 221 260 285 70-99 mg/dl Troponin I < 0.015 0-0.045 ng/ml Test 04/17/18 23:15 04/18/18 06:17 04/18/18 07:16 Range/Units White Blood Count 7.03 13.71 4.8-10.8 K/uL Red Blood Count 4.66 4.95 4.7-6.1 M/uL Hemoglobin 14.0 15.3 14.0-18.0 g/dL Hematocrit 39.3 41.9 42-52 % Mean Corpuscular Volume 84.3 84.6 80-100 fL Mean Corpuscular Hemoglobin 30.0 30.9 25-34 pg Mean Corpuscular Hemoglobin Concent 35.6 36.5 32-36 g/dl Platelet Count 171 170 130-400 K/uL Mean Platelet Volume 10.8 10.1 7.4-10.4 fL Neutrophils (%) (Auto) 77.8 % Lymphocytes (%) (Auto) 12.9 % Monocytes (%) (Auto) 8.0 % Eosinophils (%) (Auto) 1.1 % Basophils (%) (Auto) 0.1 % Neutrophils # (Auto) 5.46 1.4-6.5 K/uL Lymphocytes # (Auto) 0.91 1.2-3.4 K/uL Monocytes # (Auto) 0.56 0.11-0.59 K/uL Eosinophils # (Auto) 0.08 0-0.5 K/uL Basophils # (Auto) 0.01 0-0.2 K/uL RDW Standard Deviation 40.8 40.4 36.4-46.3 fL RDW Coefficient of Variation 13.5 13.4 11.5-14.5 % Immature Granulocyte % (Auto) 0.1 % Immature Granulocyte # (Auto) 0.01 0.00-0.02 K/uL Sodium Level 132 128 136-145 mmol/L Potassium Level 3.9 4.3 3.5-5.1 mmol/L Chloride Level 96 93 98-107 mmol/L Carbon Dioxide Level 25 23 21-32 mmol/L Anion Gap 11.0 12.0 3-11 mmol/L Blood Urea Nitrogen 17 14 7-18 mg/dl Creatinine 1.17 1.02 0.60-1.40 mg/dl Est Creatinine Clear Calc Drug Dose 108.2 123.8 ml/min Estimated GFR () 85.5 101.0 Estimated GFR (Non- 73.8 87.1 BUN/Creatinine Ratio 14.6 13.6 10-20 Random Glucose 251 293 70-99 mg/dl Lactic Acid Level 2.1 2.9 0.4-2.0 mmol/L Calcium Level 8.7 8.4 8.5-10.1 mg/dl Magnesium Level 1.6 2.0 1.8-2.4 mg/dl Total Bilirubin 0.7 0.2-1 mg/dl Aspartate Amino Transf (AST/SGOT) 17 15-37 U/L Alanine Aminotransferase (ALT/SGPT) 32 12-78 U/L Alkaline Phosphatase 87 45-117 U/L Troponin I < 0.015 0-0.045 ng/ml Total Protein 7.2 6.4-8.2 gm/dl Albumin 3.5 3.4-5.0 gm/dl Globulin 3.7 2.5-4.0 gm/dl Albumin/Globulin Ratio 0.9 0.9-2 Bedside Glucose 294 70-99 mg/dl Microbiology Results 04/18/18 Blood Culture, Received Pending 04/18/18 Blood Culture, Received Pending
[2018-04-17] MEDS ORDERED: OPTIRAY 320 IV PRN (16:45)
[2018-04-17] MEDS: ACETAMINOPHEN 325 MG TAB PO PRN (19:32)
[2018-04-17] MEDS: DOXAZosin TAB 1 MG TAB PO SCH (19:33)
[2018-04-17 19:45] VITALS: BP 147/80; PULSE 85; TEMP 36.6; O2SAT 93
[2018-04-17] MEDS ORDERED: HYDROCODONE/ACETAMIN 5/325MG TAB PO PRN (21:30)
[2018-04-17] MEDS ORDERED: TRAMADOL HCL 50 MG TAB ONE (21:35)
[2018-04-17] MEDS: INSULIN GLARGINE SOLOSTAR 100 UNITS/ML 3 ML PEN SC SCH (21:42)
[2018-04-17] MEDS ORDERED: KETOROLAC TROMETHAMINE 30 MG/ML VIAL IV PRN (21:45)
[2018-04-17] MEDS ORDERED: TRAMADOL HCL 50 MG TAB PO PRN (21:45)
[2018-04-17] MEDS ORDERED: HYDROmorphone INJ 1 MG/ML SYR ONE (23:03)
[2018-04-17 23:47] VITALS: BP 186/114; PULSE 86; TEMP 37.1; O2SAT 98
[2018-04-17] MEDS ORDERED: HYDROmorphone INJ 1 MG/ML SYR IV STA (23:57)
[2018-04-18] VITALS (11 sets, daily range): BP systolic 120–182; BP diastolic 81–113; PULSE 93–112; TEMP 36.5–37.6; O2SAT 91–97
[2018-04-18] MEDS: HYDROmorphone INJ 1 MG/ML SYR IV PRN ×7 (00:07→23:55)
[2018-04-18 00:11] LABS: BASO % 0.1 %; BASO ABS # 0.01 K/uL (0-0.2); EOS % 1.1 %; EOS ABS # 0.08 K/uL (0-0.5); HEMATOCRIT 39.3 % (42-52); IG# 0.01 K/uL (0.00-0.02); LYMPH % 12.9 %; LYMPH ABS # 0.91 K/uL (1.2-3.4); MEAN CELL VOLUME 84.3 fL (80-100); MEAN PLATELET VOLUME 10.8 fL (7.4-10.4); MONO ABS # 0.56 K/uL (0.11-0.59); NEUT % 77.8 %; NEUT ABS # 5.46 K/uL (1.4-6.5); PLATELET COUNT 171 K/uL (130-400); RED CELL DISTRIBUTION WIDTH CV 13.5 % (11.5-14.5); RED CELL DISTRIBUTION WIDTH SD 40.8 fL (36.4-46.3); WHITE BLOOD COUNT 7.03 K/uL (4.8-10.8)
[2018-04-18] MEDS: NITROGLYCERIN 2% OINTMENT 30GM TUBE EXT SCH ×2 (00:12→06:47)
[2018-04-18 00:30] LABS: MEAN CORPUSCULAR HGB CONC 35.6 g/dl (32-36)
[2018-04-18 00:36] LABS: ALBUMIN 3.5 gm/dl (3.4-5.0); ALKALINE PHOSPHATASE 87 U/L (45-117); ALT/SGPT 32 U/L (12-78); AST/SGOT 17 U/L (15-37); BLOOD UREA NITROGEN 17 mg/dl (7-18); CALCIUM 8.7 mg/dl (8.5-10.1); CARBON DIOXIDE 25 mmol/L (21-32); CREATININE 1.17 mg/dl (0.60-1.40); GLUCOSE 251 mg/dl (70-99); POTASSIUM 3.9 mmol/L (3.5-5.1); SODIUM 132 mmol/L (136-145); TOTAL PROTEIN 7.2 gm/dl (6.4-8.2)
[2018-04-18] MEDS: LABETALOL HCL IV 5 MG/ML 20ML IV PRN (00:46)
[2018-04-18] MEDS: MAGNESIUM SULFATE 1GM / D5W 100 ML IV SCH ×2 (00:54→01:51)
[2018-04-18] MEDS: SODIUM CHLORIDE 0.9% 1000ML 1,000 ML IV SCH ×2 (01:35→13:47)
[2018-04-18 06:27] LABS: HEMATOCRIT 41.9 % (42-52); HEMOGLOBIN 15.3 g/dL (14.0-18.0); MEAN CELL VOLUME 84.6 fL (80-100); MEAN CORPUSCULAR HEMOGLOBIN 30.9 pg (25-34); MEAN CORPUSCULAR HGB CONC 36.5 g/dl (32-36); MEAN PLATELET VOLUME 10.1 fL (7.4-10.4); PLATELET COUNT 170 K/uL (130-400); RED CELL DISTRIBUTION WIDTH CV 13.4 % (11.5-14.5); RED CELL DISTRIBUTION WIDTH SD 40.4 fL (36.4-46.3); WHITE BLOOD COUNT 13.71 K/uL (4.8-10.8)
[2018-04-18 06:56] LABS: CALCIUM 8.4 mg/dl (8.5-10.1); CREATININE 1.02 mg/dl (0.60-1.40); POTASSIUM 4.3 mmol/L (3.5-5.1)
[2018-04-18] MEDS ORDERED: PIPERACILL/TAZOBAC CONSULT ACTIVE PRN ×2 (07:15)
[2018-04-18] MEDS ORDERED: INSULIN ASPART 100 UNITS/ML 3 ML PEN SC SCH (07:30)
[2018-04-18] MEDS ORDERED: METOPROLOL TARTRATE 1 MG/ML VIAL IV ONE (08:00)
[2018-04-18] MEDS ORDERED: PIPERACILL/TAZOBAC IV 4.5 GM in DEXTROSE 5% 100ML 100 ML IV ONE (08:00)
[2018-04-18] MEDS: INSULIN GLARGINE SOLOSTAR 100 UNITS/ML 3 ML PEN SC SCH ×2 (08:06→21:28)
[2018-04-18] MEDS ORDERED: HYDROmorphone INJ 1 MG/ML SYR IV STA ×2 (08:20→09:24)
--- NOTE | 2018-04-18 08:35 | DIAGNOSTIC IMAGING REPORT ---
CT OF THE ABDOMEN AND PELVIS WITH CONTRAST CLINICAL HISTORY: Severe abdominal pain. lactic acid 2.1. COMPARISON STUDY: Right upper quadrant ultrasound April 16, 2018. TECHNIQUE: Following IV administration of 91 mL of Optiray-320, axial images of the abdomen and pelvis were obtained from the lung bases to the proximal femurs. Images were reviewed in the axial, sagittal, and coronal planes. IV contrast was administered without complication. A dose lowering technique was utilized adhering to the principles of ALARA. CT DOSE: 1321.29 mGy.cm FINDINGS: Lung bases are clear. Fatty infiltration of the liver is noted. The spleen is mildly enlarged. The gallbladder is mildly distended. There is mild pericholecystic infiltration. No radiopaque gallstones are noted. A defect within the mid to upper pole the left kidney is noted. This could reflect scarring or postsurgical change. There is no hydronephrosis. No biliary or pancreatic ductal dilatation is present. No peripancreatic infiltration is present. Caliber of small and large bowel is normal. There is no free fluid or lymphadenopathy. No suspicious osseous lesions are present. IMPRESSION: 1. Findings suggestive of acute cholecystitis. Mild gallbladder distention and pericholecystic infiltration. This finding will be called to the ordering physician according to protocol at time of dictation. 2. Fatty liver. 3. Mild splenomegaly. Electronically signed by: Micha Villalta M.D. 04/18/2018 8:33 AM Dictated Date/Time: 04/18/2018 7:49 AM
--- NOTE | 2018-04-18 08:45 | Progress Note ---
Progress Note Date of Service Apr 18, 2018. Progress Note Attending addendum Patient had worsening of right upper quadrant pain overnight CT abdomen pelvis with IV contrast shows acute cholecystitis acid level elevated more than 2 with associated leukocytosis N.p.o. Ordered for IV Zosyn Surgery consult requested, case discussed with on-call surgery Dr. Lilly Patient will need to go to OR emergently for cholecystectomy
--- NOTE | 2018-04-18 08:56 | Progress Note ---
Progress Note Date of Service Apr 18, 2018. Progress Note ATTENDING ADDENDUM ECHO 04/17/2018 The left ventricle is normal in size. There is mild concentric left ventricular hypertrophy. There is focal inferior and inferoseptal basal akinesis with thinning and scar. Posterior wall is mildly hypokinetic at the base. All other wall segments contract normally Ejection Fraction = 50-55%. There is no significant valvular disease There is trace mitral regurgitation. -No active anginal symptoms, ejection fraction improved from prior stress echo finding -Patient have no medical contraindication for emergent cholecystectomy in the setting of acute cholecystitis Spoke with surgery Dr. Lilly Patient should proceed for surgery today ; does not need any other pre-op testing or optimization
--- NOTE | 2018-04-18 09:10 | Pharmacy Progress Note ---
Pharmacy Glycemic Short Note 2 Date of Service Apr 18, 2018. OUTPATIENT ANTIDIABETIC REGIMEN: * Metformin 1 gm BID * Glipizide 20 mg BID * Tradjenta 5 mg daily * A1c = 8.9 % 04/05/18 Test 04/17/18 12:21 04/17/18 17:21 04/17/18 19:53 04/17/18 23:15 Bedside Glucose 221 mg/dl (70-99) 260 mg/dl (70-99) 285 mg/dl (70-99) Random Glucose 251 mg/dl (70-99) Test 04/18/18 06:17 04/18/18 07:16 Random Glucose 293 mg/dl (70-99) Bedside Glucose 294 mg/dl (70-99) ASSESSMENT: 04/18/18 * Mr. Haney received 38 units of insulin yesterday and BSGs have become more elevated since yesterday AM, most likely due to acute cholecystitis * He remains NPO, plans to go to surgery possibly today * Will increase insulin regimen based on est TDD ~60-80 units and give a one time bolus of IV insulin to augment SQ 04/17/18 * 47 y/o male admitted for chest pain. History of type 2 diabetes managed with oral agents. Elevated A1c, indicating not well controlled at home. * Pt is maintained on oral antidiabetic agents as an outpatient * Oral agents are not recommended for inpatient use d/t drug interactions, changing PO intake, and difficulty titrating for acute hyper/hypoglycemia. ADA recommends re-initiating outpatient oral agents 1-2 days prior to discharge if/ when appropriate if they were held on admission. * Will hold oral agents for admission and utilize SQ basal bolus insulin regimen which is the recommended regimen for inpatient glycemic control. * Will initiate weight based insulin dosing for insulin vic patient and titrate based on BSG trends. * BSGs have improved but remain above goal this AM (received 7 units of correctional insulin overnight). Will increase basal to wt/stress of 2 using insulin calculator and tighten CF as well. PLAN FOR INPATIENT GLYCEMIC CONTROL: * Continue to hold outpatient oral diabetes medications * Basal insulin - increase * Lantus BID as per the following scale: * 10 units for BSG < 180 * 15 units for BSG 180-250 * 20 units for BSG > 250 * Bolus insulin - tighten parameters * NovoLog per scale ACHS or Q6hrs while NPO * Goal Range: Low 110 mg/dL - High 140 mg/dL * Correction Factor: 15 mg/dL/unit * Nutritional / Prandial insulin per carb ratio of 1 unit per 7 grams CHO consumed PLAN FOR DISCHARGE: * A1c indicates suboptimal control on 3 oral agents. If patient did not recently initiate one of these, may need to consider starting once daily basal insulin - would recommend Lantus (or Basaglar) 10 units daily to start
--- NOTE | 2018-04-18 09:22 | Gastroenterology Progress Note ---
Progress Note Date of Service: Apr 18, 2018 Subjective Pt evaluation today including: conversation w/ patient, conversation w/ family Did well during day, however, began to have return of pain overnight. CT scan performed suggests cholecystitis. Medications Current Inpatient Medications Medications (Trade) Dose Ordered Sig/Jackie Route Start Time Stop Time Status Last Admin Dose Admin Ioversol (Optiray 320) 100 ml UD PRN IV 04/16/18 15:45 04/20/18 15:44 Glucose (Glucose 40% Gel) 15-30 GRAMS 15 GRAMS... UD PRN PO 04/16/18 18:30 05/16/18 18:29 Glucose (Glucose Chew Tab) 4-8 Tablets 4 Tabl... UD PRN PO 04/16/18 18:30 05/16/18 18:29 Dextrose (Dextrose 50% 50ML Syringe) 25-50ML 25ML FOR ... UD PRN IV 04/16/18 18:30 05/16/18 18:29 Glucagon (Glucagon Inj) 1 mg UD PRN SQ 04/16/18 18:30 05/16/18 18:29 Carbohydrates (Carbohydrates For Hypoglycemia) 15-30 GRAMS 15 grams if BSG 54-69... UD PRN PO 04/16/18 18:30 05/16/18 18:29 Miscellaneous Information (Consult Glycemic Management Pharmacy) 1 ea UD PRN N/A 04/16/18 19:29 05/16/18 19:28 Ondansetron HCl (Zofran Inj) 4 mg Q6H PRN IV 04/16/18 18:45 05/16/18 18:44 04/16/18 19:35 4 MG Nitroglycerin (Nitrostat Tab) 0.4 mg UD PRN SL 04/16/18 18:45 05/16/18 18:44 Glucose (Glucose 40% Gel) 15-30 GRAMS 15 GRAMS... UD PRN PO 04/16/18 19:00 05/16/18 18:59 Glucose (Glucose Chew Tab) 4-8 Tablets 4 Tabl... UD PRN PO 04/16/18 19:00 05/16/18 18:59 Dextrose (Dextrose 50% 50ML Syringe) 25-50ML 25ML FOR ... UD PRN IV 04/16/18 19:00 05/16/18 18:59 Glucagon (Glucagon Inj) 1 mg UD PRN SQ 04/16/18 19:00 05/16/18 18:59 Carbohydrates (Carbohydrates For Hypoglycemia) 15-30 GRAMS 15 grams if BSG 54-69... UD PRN PO 04/16/18 19:00 05/16/18 18:59 Miscellaneous (Iv Fluids Completed) 1 ea PRN PRN N/A 04/16/18 21:15 04/16/19 21:14 Insulin Glargine (Lantus Solostar Pen) SEE PROTOCOL TEXT Q12 SC 04/17/18 21:00 05/17/18 20:59 04/18/18 08:06 20 UNITS Ioversol (Optiray 320) 125 ml UD PRN IV 04/17/18 16:45 04/21/18 16:44 Hydromorphone HCl (Dilaudid Inj) 1 mg Q3HWA PRN IV 04/17/18 23:00 04/30/18 21:44 04/18/18 08:26 1 MG Sodium Chloride 1,000 ml @ 100 mls/hr Q10H IV 04/18/18 01:30 05/18/18 01:29 04/18/18 01:35 100 MLS/HR Piperacillin Sod/ Tazobactam Sod 3.375 gm/Dextrose 115 ml @ 200 mls/hr Q6 IV 04/18/18 12:00 04/28/18 11:59 UNV Miscellaneous Information (Consult) 1 ea UD PRN N/A 04/18/18 07:15 05/18/18 07:14 Metoprolol Tartrate (Lopressor Iv) 5 mg Q6 IV. 04/18/18 12:00 05/18/18 11:59 Insulin Aspart (novoLOG ASPART) SLIDING SCALE If C... Q6 SC 04/18/18 07:30 05/18/18 07:29 04/18/18 08:05 11 UNITS Insulin Human Regular 5 units/ Syringe 5 ml @ 30 mls/min 0930 ONCE IV 04/18/18 09:30 04/18/18 09:31 Hydromorphone HCl (Dilaudid Inj) 1 mg NOW STAT IV 04/18/18 09:08 04/18/18 09:09 UNV Objective Vital Signs Date Time Temp Pulse Resp B/P (MAP) Pulse Ox O2 Delivery O2 Flow Rate FiO2 04/18/18 08:08 117 04/18/18 07:33 36.5 112 20 182/111 (134) 91 Room Air 175/113 (133) 04/18/18 02:52 36.9 93 19 182/113 (136) 96 Room Air 04/18/18 01:39 94 164/104 (124) 04/17/18 23:47 37.1 86 25 186/114 (138) 98 Room Air 04/17/18 20:00 Room Air 04/17/18 19:45 36.6 85 18 147/80 (102) 93 Room Air 04/17/18 15:07 37.1 85 22 137/71 (93) 92 Room Air 04/17/18 11:37 36.8 79 20 134/84 (101) 90 Room Air Physical Exam General Appearance: WD/WN, no apparent distress Neck: supple Respiratory/Chest: chest non-tender, lungs clear Cardiovascular: regular rate, rhythm Abdomen: normal bowel sounds, + pertinent finding (ttp in ruq, no rebound) Neurologic/Psych: supervisor hanging and trimming II-XII nml as tested Laboratory Results Last 24 Hours Test 04/17/18 12:21 04/17/18 13:02 04/17/18 17:21 04/17/18 19:53 Bedside Glucose 221 mg/dl 260 mg/dl 285 mg/dl Troponin I < 0.015 ng/ml Test 04/17/18 23:15 04/18/18 06:17 04/18/18 07:16 White Blood Count 7.03 K/uL 13.71 K/uL Red Blood Count 4.66 M/uL 4.95 M/uL Hemoglobin 14.0 g/dL 15.3 g/dL Hematocrit 39.3 % 41.9 % Mean Corpuscular Volume 84.3 fL 84.6 fL Mean Corpuscular Hemoglobin 30.0 pg 30.9 pg Mean Corpuscular Hemoglobin Concent 35.6 g/dl 36.5 g/dl Platelet Count 171 K/uL 170 K/uL Mean Platelet Volume 10.8 fL 10.1 fL Neutrophils (%) (Auto) 77.8 % Lymphocytes (%) (Auto) 12.9 % Monocytes (%) (Auto) 8.0 % Eosinophils (%) (Auto) 1.1 % Basophils (%) (Auto) 0.1 % Neutrophils # (Auto) 5.46 K/uL Lymphocytes # (Auto) 0.91 K/uL Monocytes # (Auto) 0.56 K/uL Eosinophils # (Auto) 0.08 K/uL Basophils # (Auto) 0.01 K/uL RDW Standard Deviation 40.8 fL 40.4 fL RDW Coefficient of Variation 13.5 % 13.4 % Immature Granulocyte % (Auto) 0.1 % Immature Granulocyte # (Auto) 0.01 K/uL Sodium Level 132 mmol/L 128 mmol/L Potassium Level 3.9 mmol/L 4.3 mmol/L Chloride Level 96 mmol/L 93 mmol/L Carbon Dioxide Level 25 mmol/L 23 mmol/L Anion Gap 11.0 mmol/L 12.0 mmol/L Blood Urea Nitrogen 17 mg/dl 14 mg/dl Creatinine 1.17 mg/dl 1.02 mg/dl Est Creatinine Clear Calc Drug Dose 108.2 ml/min 123.8 ml/min Estimated GFR () 85.5 101.0 Estimated GFR (Non- 73.8 87.1 BUN/Creatinine Ratio 14.6 13.6 Random Glucose 251 mg/dl 293 mg/dl Lactic Acid Level 2.1 mmol/L 2.9 mmol/L Calcium Level 8.7 mg/dl 8.4 mg/dl Magnesium Level 1.6 mg/dl 2.0 mg/dl Total Bilirubin 0.7 mg/dl Aspartate Amino Transf (AST/SGOT) 17 U/L Alanine Aminotransferase (ALT/SGPT) 32 U/L Alkaline Phosphatase 87 U/L Troponin I < 0.015 ng/ml Total Protein 7.2 gm/dl Albumin 3.5 gm/dl Globulin 3.7 gm/dl Albumin/Globulin Ratio 0.9 Bedside Glucose 294 mg/dl Assessment and Plan 47 yo man presenting with RUQ abdominal pain with CT findings to suggest cholecystitis. -Gen Surg has evaluated, planning for cholecystectomy this am, agree with ABX -Continued care per surgery -Will sign off -Call with questions
[2018-04-18] MEDS ORDERED: INSULIN HUMAN REGULAR PER UNIT 5 UNITS in SYRINGE 4.95 ML IV ONE (09:30)
[2018-04-18] MEDS ORDERED: LIDOCAINE HCL 2% 2 ML VIAL (20MG/ML) ONE (09:46)
[2018-04-18] MEDS ORDERED: PROPOFOL IV EMULSION 10 MG/ML 20 ML VIAL ONE (09:46)
[2018-04-18] MEDS ORDERED: ONDANSETRON INJ 2 MG/ML 2 ML VIAL ONE (09:46)
[2018-04-18] MEDS ORDERED: MIDAZOLAM HCL 1 MG/ML 2ML VIAL ONE (09:47)
[2018-04-18] MEDS ORDERED: FENTANYL CITRATE INJ 50 MCG/1 ML 2 ML VIAL ONE ×2 (09:47→10:34)
[2018-04-18] MEDS ORDERED: NovoLIN-R INSULIN PER UNIT CHARGE ONE ×3 (09:49→13:06)
[2018-04-18] MEDS ORDERED: LIDOCAINE HCL 1% 20 ML VIAL ONE (09:55)
[2018-04-18] MEDS ORDERED: BUPIVACAINE 0.5 % 5 MG/1 ML PF 10ML VIAL ONE (09:56)
--- NOTE | 2018-04-18 09:56 | Surgery Consultation ---
Consultation Date of Consultation: Apr 18, 2018. Attending Physician: Katia Humphreys M.D. 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 pt had U/S study- cholelithiasis, pt had CT scan done today- acute cholecystitis, the Hospitalist called me ask to do cholecystectomy today. pt has with complex past history which includes longstanding diabetes mellitus, history of paroxysmal atrial fibrillation with cardioembolic stroke, atherosclerotic coronary artery disease. Screening nuclear study performed prior to initiating antiarrhythmic therapy demonstrated abnormal perfusion abnormality involving the inferior wall. Subsequent cardiac catheterization performed on 04/09/2018 demonstrated chronic right coronary artery occlusion with collateral fill. In addition, there was a tortuous left anterior descending with moderate narrowing of the mid vessel at 50%. This was interrogated and found to be nonobstructive by IVUS imaging. Patient was also noted to have branch vessel narrowing of a small posterior descending artery of 70%. He was begun on medical management which included increased dosing of lipid lowering therapies. He has remained chronically anticoagulated with apixaban post procedure. Past Medical/Surgical History Medical Problems: (1) Hyperglycemia Status: Acute (2) Tachycardia Status: Acute Family History Diabetes mellitus FH: heart disease Hypertension Kidney disease Social History Smoking Status: Former Smoker (quit 01/23/09 with 100 pack year hx) Smokeless Tobacco Use: No Alcohol Use: occasionally Drug Use: none Marital Status: Housing Status: lives with family Occupation Status: unemployed Allergies Coded Allergies: Oxycodone (Unverified Adverse Reaction, Intermediate, HEADACHE, 04/16/18) Home Medications Scheduled Apixaban (Eliquis), 5 MG PO BID Aspirin (Aspirin Ec), 81 MG PO DAILY Atorvastatin (Lipitor), 80 MG PO DAILY Cyanocobalamin (Vitamin B-12), 2,000 MCG PO DAILY Diltiazem Hcl Coated Beads (Diltiazem Cd), 240 MG PO DAILY Doxazosin Mesylate (Cardura), 1 MG PO DAILY Doxycycline Hyclate (Vibramycin), 50 MG PO BID Glipizide (Glucotrol), 20 MG PO BID Hydrochlorothiazide (Hctz), 25 MG PO DAILY Linagliptin (Tradjenta), 5 MG PO DAILY Losartan Potassium (Cozaar), 100 MG PO DAILY Meclizine Hcl (Meclizine Hcl), 25 MG PO BID Metformin Hcl (Glucophage), 1,000 MG PO BID Metoprolol Succ (Toprol Xl) (Toprol-Xl ), 100 MG PO DAILY Multiple Vitamin (Multivitamin), 1 TAB PO DAILY Omeprazole (Prilosec), 20 MG PO DAILY Pregabalin (Lyrica), 75 MG PO TID Probiotic Product (Probiotic), 1 CAP PO DAILY Sennosides-Docusate Sodium (Senna Plus), 2 TABS PO BID Sertraline (Zoloft), 100 MG PO DAILY Tramadol (Ultram), 50 MG PO TID Vardenafil (Levitra), 20 MG PO DIRECTED Scheduled PRN Acetaminophen (Tylenol), 1,000 MG PO Q8 PRN for Pain Ondasetron Odt (Zofran Odt), 4 MG SL Q8 PRN for Nausea Current Inpatient Medications Current Inpatient Medications Medications (Trade) Dose Ordered Sig/Jackie Route Start Time Stop Time Status Last Admin Dose Admin Ioversol (Optiray 320) 100 ml UD PRN IV 04/16/18 15:45 04/20/18 15:44 Glucose (Glucose 40% Gel) 15-30 GRAMS 15 GRAMS... UD PRN PO 04/16/18 18:30 05/16/18 18:29 Glucose (Glucose Chew Tab) 4-8 Tablets 4 Tabl... UD PRN PO 04/16/18 18:30 05/16/18 18:29 Dextrose (Dextrose 50% 50ML Syringe) 25-50ML 25ML FOR ... UD PRN IV 04/16/18 18:30 05/16/18 18:29 Glucagon (Glucagon Inj) 1 mg UD PRN SQ 04/16/18 18:30 05/16/18 18:29 Carbohydrates (Carbohydrates For Hypoglycemia) 15-30 GRAMS 15 grams if BSG 54-69... UD PRN PO 04/16/18 18:30 05/16/18 18:29 Miscellaneous Information (Consult Glycemic Management Pharmacy) 1 ea UD PRN N/A 04/16/18 19:29 05/16/18 19:28 Ondansetron HCl (Zofran Inj) 4 mg Q6H PRN IV 04/16/18 18:45 05/16/18 18:44 04/16/18 19:35 4 MG Nitroglycerin (Nitrostat Tab) 0.4 mg UD PRN SL 04/16/18 18:45 05/16/18 18:44 Glucose (Glucose 40% Gel) 15-30 GRAMS 15 GRAMS... UD PRN PO 04/16/18 19:00 05/16/18 18:59 Glucose (Glucose Chew Tab) 4-8 Tablets 4 Tabl... UD PRN PO 04/16/18 19:00 05/16/18 18:59 Dextrose (Dextrose 50% 50ML Syringe) 25-50ML 25ML FOR ... UD PRN IV 04/16/18 19:00 05/16/18 18:59 Glucagon (Glucagon Inj) 1 mg UD PRN SQ 04/16/18 19:00 05/16/18 18:59 Carbohydrates (Carbohydrates For Hypoglycemia) 15-30 GRAMS 15 grams if BSG 54-69... UD PRN PO 04/16/18 19:00 05/16/18 18:59 Miscellaneous (Iv Fluids Completed) 1 ea PRN PRN N/A 04/16/18 21:15 04/16/19 21:14 Insulin Glargine (Lantus Solostar Pen) SEE PROTOCOL TEXT Q12 SC 04/17/18 21:00 05/17/18 20:59 04/18/18 08:06 20 UNITS Ioversol (Optiray 320) 125 ml UD PRN IV 04/17/18 16:45 04/21/18 16:44 Hydromorphone HCl (Dilaudid Inj) 1 mg Q3HWA PRN IV 04/17/18 23:00 04/30/18 21:44 04/18/18 08:26 1 MG Sodium Chloride 1,000 ml @ 100 mls/hr Q10H IV 04/18/18 01:30 05/18/18 01:29 04/18/18 01:35 100 MLS/HR Piperacillin Sod/ Tazobactam Sod 3.375 gm/Dextrose 115 ml @ 200 mls/hr Q6 IV 04/18/18 12:00 04/28/18 11:59 UNV Miscellaneous Information (Consult) 1 ea UD PRN N/A 04/18/18 07:15 05/18/18 07:14 Metoprolol Tartrate (Lopressor Iv) 5 mg Q6 IV. 04/18/18 12:00 05/18/18 11:59 Insulin Aspart (novoLOG ASPART) SLIDING SCALE If C... Q6 SC 04/18/18 07:30 05/18/18 07:29 04/18/18 08:05 11 UNITS Review of Systems Constitutional: No fever, No chills, No sweats, No weight loss, No weakness, No fatigue, No problem reported Eyes: No worsening of vision, No eye pain, No redness, No discharge, No diplopia, No problem reported ENT: No hearing loss, No unusual epistaxis, No nasal symptoms, No sore throat, No tinnitus, No dental problems, No trouble swallowing, No problem reported Respiratory: No cough, No sputum, No wheezing, No shortness of breath, No dyspnea on exertion, No dyspnea at rest, No hemoptysis, No problem reported Cardiovascular: + chest pain, + problem reported (hyperglycemia, A-Fib, cardiac catheter) Abdomen: + pain, + nausea, + vomiting Musculoskeletal: No joint pain, No muscle pain, No swelling, No calf pain, No problem reported Genitourinary - Male: No hematuria, No dysuria, No urinary frequency, No urinary urgency, No urinary hesitancy, No urinary retention, No urinary incontinence, No penile discharge, No lesions, No impotence, No problem reported Psychiatric: No depression symptoms, No anhedonism, No anxiety, No insomnia, No substance abuse, No problem reported Endocrine: + problem reported (DM) Hematologic / Lymphatic: No abnormal bleeding/bruising, No clotting problems, No swollen lymph nodes, No night sweats, No problem reported Allergic / Immunologic: No environmental allergies, No seasonal allergies, No pet sensitivities, No food allergies, No hives, No frequent infections, No poor healing, No prolonged convalescence, No problem reported Physical Exam Date Time Temp Pulse Resp B/P (MAP) Pulse Ox O2 Delivery O2 Flow Rate FiO2 04/18/18 08:08 117 8/12/18 07:33 36.5 112 20 182/111 (134) 91 Room Air 175/113 (133) 04/18/18 02:52 36.9 93 19 182/113 (136) 96 Room Air 04/18/18 01:39 94 164/104 (124) 04/17/18 23:47 37.1 86 25 186/114 (138) 98 Room Air 04/17/18 20:00 Room Air 04/17/18 19:45 36.6 85 18 147/80 (102) 93 Room Air 04/17/18 15:07 37.1 85 22 137/71 (93) 92 Room Air 04/17/18 11:37 36.8 79 20 134/84 (101) 90 Room Air General Appearance: WD/WN, + mild distress Head: normocephalic Eyes: normal inspection ENT: normal ENT inspection Neck: supple, no JVD Respiratory/Chest: chest non-tender, lungs clear, normal breath sounds, no respiratory distress Cardiovascular: regular rate, rhythm, no edema, no gallop, no JVD, no murmur Abdomen/GI: soft, no organomegaly, no pulsatile mass, + tenderness (, no distended) Back: + pertinent finding (back surgery) Extremities/Musculoskelatal: normal inspection, no calf tenderness, normal capillary refill Neurologic/Psych: alert, normal mood/affect, normal reflexes, oriented x 3 Skin: normal color, warm/dry, no rash Laboratory Results Last 24 Hours Test 04/17/18 12:21 04/17/18 13:02 04/17/18 17:21 04/17/18 19:53 Bedside Glucose 221 mg/dl 260 mg/dl 285 mg/dl Troponin I < 0.015 ng/ml Test 04/17/18 23:15 04/18/18 06:17 04/18/18 07:16 White Blood Count 7.03 K/uL 13.71 K/uL Red Blood Count 4.66 M/uL 4.95 M/uL Hemoglobin 14.0 g/dL 15.3 g/dL Hematocrit 39.3 % 41.9 % Mean Corpuscular Volume 84.3 fL 84.6 fL Mean Corpuscular Hemoglobin 30.0 pg 30.9 pg Mean Corpuscular Hemoglobin Concent 35.6 g/dl 36.5 g/dl Platelet Count 171 K/uL 170 K/uL Mean Platelet Volume 10.8 fL 10.1 fL Neutrophils (%) (Auto) 77.8 % Lymphocytes (%) (Auto) 12.9 % Monocytes (%) (Auto) 8.0 % Eosinophils (%) (Auto) 1.1 % Basophils (%) (Auto) 0.1 % Neutrophils # (Auto) 5.46 K/uL Lymphocytes # (Auto) 0.91 K/uL Monocytes # (Auto) 0.56 K/uL Eosinophils # (Auto) 0.08 K/uL Basophils # (Auto) 0.01 K/uL RDW Standard Deviation 40.8 fL 40.4 fL RDW Coefficient of Variation 13.5 % 13.4 % Immature Granulocyte % (Auto) 0.1 % Immature Granulocyte # (Auto) 0.01 K/uL Sodium Level 132 mmol/L 128 mmol/L Potassium Level 3.9 mmol/L 4.3 mmol/L Chloride Level 96 mmol/L 93 mmol/L Carbon Dioxide Level 25 mmol/L 23 mmol/L Anion Gap 11.0 mmol/L 12.0 mmol/L Blood Urea Nitrogen 17 mg/dl 14 mg/dl Creatinine 1.17 mg/dl 1.02 mg/dl Est Creatinine Clear Calc Drug Dose 108.2 ml/min 123.8 ml/min Estimated GFR () 85.5 101.0 Estimated GFR (Non- 73.8 87.1 BUN/Creatinine Ratio 14.6 13.6 Random Glucose 251 mg/dl 293 mg/dl Lactic Acid Level 2.1 mmol/L 2.9 mmol/L Calcium Level 8.7 mg/dl 8.4 mg/dl Magnesium Level 1.6 mg/dl 2.0 mg/dl Total Bilirubin 0.7 mg/dl Aspartate Amino Transf (AST/SGOT) 17 U/L Alanine Aminotransferase (ALT/SGPT) 32 U/L Alkaline Phosphatase 87 U/L Troponin I < 0.015 ng/ml Total Protein 7.2 gm/dl Albumin 3.5 gm/dl Globulin 3.7 gm/dl Albumin/Globulin Ratio 0.9 Bedside Glucose 294 mg/dl Assessment & Plan [~ rep ct add3]] ULTRASOUND RIGHT UPPER QUADRANT ABDOMEN CLINICAL HISTORY: Right upper quadrant abdominal pain. COMPARISON STUDY: No priors. TECHNIQUE: Real-time, grayscale, and color flow sonography of the right upper quadrant of the abdomen was performed. Images are reviewed in the transverse and longitudinal planes. FINDINGS: Liver: The liver is enlarged measuring over 20 cm in length and demonstrates heterogeneously increased echotexture consistent with severe hepatic steatosis. Note that this degrades acoustic penetration of the liver. Fatty sparing is seen adjacent to gallbladder fossa. There is no intrahepatic biliary ductal dilatation. The main portal vein is patent. Gallbladder: Small gallstones are suggested. The gallbladder is otherwise normal in appearance. There is no gallbladder wall thickening or pericholecystic fluid. A sonographic Cash's sign is reportedly absent. The common bile duct measures up to 0.5 cm in diameter. Pancreas: Not well visualized due to overlying bowel gas. Right kidney: Survey images of the right kidney demonstrate normal size and echotexture. There is no hydronephrosis. Ascites: None. IMPRESSION: 1. Cholelithiasis without sonographic evidence of acute cholecystitis. 2. Hepatomegaly and severe hepatic steatosis. 3. The pancreas was not well visualized. CT scan-04/18/2018-CT OF THE ABDOMEN AND PELVIS WITH CONTRAST CLINICAL HISTORY: Severe abdominal pain. lactic acid 2.1. COMPARISON STUDY: Right upper quadrant ultrasound April 16, 2018. TECHNIQUE: Following IV administration of 91 mL of Optiray-320, axial images of the abdomen and pelvis were obtained from the lung bases to the proximal femurs. Images were reviewed in the axial, sagittal, and coronal planes. IV contrast was administered without complication. A dose lowering technique was utilized adhering to the principles of ALARA. CT DOSE: 1321.29 mGy.cm FINDINGS: Lung bases are clear. Fatty infiltration of the liver is noted. The spleen is mildly enlarged. The gallbladder is mildly distended. There is mild pericholecystic infiltration. No radiopaque gallstones are noted. A defect within the mid to upper pole the left kidney is noted. This could reflect scarring or postsurgical change. There is no hydronephrosis. No biliary or pancreatic ductal dilatation is present. No peripancreatic infiltration is present. Caliber of small and large bowel is normal. There is no free fluid or lymphadenopathy. No suspicious osseous lesions are present. IMPRESSION: 1. Findings suggestive of acute cholecystitis. Mild gallbladder distention and pericholecystic infiltration. This finding will be called to the ordering physician according to protocol at time of dictation. 2. Fatty liver. 3. Mild splenomegaly. Assessment: pt is a 47 year old male who presents with RUQ pain, CT scan DX acute cholecystitis IMP: acute cholecystitis with cholelithiasis Plan, I recommend to do laparoscopic cholecystectomy, possible open or cholangiogram, D/W benefits, risks and alternatives of the surgery, the risks - infection, bleeding, sepsis, NE, DVT, stroke, may need ERCP, , pt understood, he agrees with the surgery, he signed inform consent, I answered all questions, IV antibiotic,
[2018-04-18] MEDS ORDERED: CEFAZOLIN SOD 1 GM VIAL ONE ×2 (10:21→10:30)
[2018-04-18] MEDS ORDERED: ONDANSETRON INJ 2 MG/ML 2 ML VIAL IV PRN (10:45)
[2018-04-18] MEDS ORDERED: FLUMAZENIL 0.1 MG/1 ML 10 ML VIAL IV PRN (10:45)
[2018-04-18] MEDS ORDERED: EpHEDrine SULFATE INJ 50 MG/ML AMP IV PRN (10:45)
[2018-04-18] MEDS ORDERED: NALOXONE HCL 0.4 MG/1 ML VIAL/CARP IV PRN (10:45)
[2018-04-18] MEDS ORDERED: PHENYLEPHRINE 100MCG/ML 5ML SYR IV PRN (10:45)
[2018-04-18] MEDS ORDERED: FENTANYL CITRATE INJ 50 MCG/1 ML 2 ML VIAL IV PRN (10:45)
[2018-04-18] MEDS ORDERED: ATROPINE SULFATE 0.1 MG/ML 5ML SYR IV PRN (10:45)
[2018-04-18] MEDS ORDERED: HYDROmorphone INJ 2 MG/ML SYR/VIAL IV PRN (10:45)
[2018-04-18] MEDS ORDERED: LABETALOL HCL IV 5 MG/ML 20ML IV PRN (10:45)
[2018-04-18] MEDS ORDERED: MEPERIDINE HCL 25 MG/ML CARP IV PRN (10:45)
[2018-04-18] MEDS ORDERED: BACITRACIN OINT 15 GM TUBE ONE (12:01)
--- NOTE | 2018-04-18 12:08 | [facility] Post Operative Brief Note ---
Immediate Operative Summary Operative Date Apr 18, 2018. 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
[2018-04-18] MEDS ORDERED: METOPROLOL TARTRATE 1 MG/ML VIAL ONE ×2 (12:21→12:39)
[2018-04-18] MEDS ORDERED: METOPROLOL TARTRATE 1 MG/ML VIAL IV STA ×2 (12:23→12:40)
[2018-04-18] MEDS ORDERED: INSULIN HUMAN REGULAR IV ONE (12:30)
--- NOTE | 2018-04-18 13:23 | Anesthesiology Progress Note ---
Anesthesia Post Op Note Date & Time Apr 18, 2018 at 13:19 Vital Signs Pain Intensity: 3 Vital Signs Past 12 Hours Date Time Temp Pulse Resp B/P (MAP) Pulse Ox O2 Delivery O2 Flow Rate FiO2 04/18/18 13:15 98 15 160/106 95 Nasal Cannula 4 04/18/18 13:11 102 159/100 04/18/18 13:05 101 21 159/93 95 Nasal Cannula 4 04/18/18 12:55 101 18 150/105 94 Nasal Cannula 4 04/18/18 12:45 96 18 163/103 95 Nasal Cannula 4 04/18/18 12:44 104 149/95 04/18/18 12:35 102 21 159/105 96 Oxymask 10 04/18/18 12:25 105 19 152/92 94 Oxymask 10 04/18/18 12:25 108 146/99 04/18/18 12:16 37.2 110 19 146/93 95 Oxymask 10 04/18/18 08:08 117 04/18/18 08:00 Room Air 04/18/18 07:33 36.5 112 20 182/111 (134) 91 Room Air 175/113 (133) 04/18/18 02:52 36.9 93 19 182/113 (136) 96 Room Air 04/18/18 01:39 94 164/104 (124) Notes Mental Status: alert / awake / arousable, participated in evaluation Pt Amnestic to Procedure: Yes Nausea / Vomiting: adequately controlled Pain: adequately controlled Airway Patency, RR, SpO2: stable & adequate, see Notes BP & HR: stable & adequate, see Notes Hydration State: stable & adequate Anesthetic Complications: no major complications apparent The patient's gallbladder was gangrenous and needed to come out according to Dr. Lilly. The patient is awake and comfortable in the PACU. His blood pressure has been elevated 150s/100s with HR in the 100s. He has been given several doses of IV metoprolol. Preop BSG was 289 so he was given 10 units IV regular insulin. BSG upon arrival to PACU was 324 so he was given 20 unit IV regular insulin. His next BSG was 248 so he was given 5 additional units regular insulin IV. I spoke to Dr. Humphreys and she will follow and treat the patient's hemodynamic parameters as well as his glucose levels when he goes back to telemetry.
[2018-04-18] MEDS ORDERED: INSULIN PROTOCOL GOAL RANGE ONE (13:45)
[2018-04-18] MEDS ORDERED: SEVERE STRESS LEVEL ONE (13:45)
[2018-04-18] MEDS ORDERED: INSULIN IV INFUSION PROTOCOL SCH (13:46)
[2018-04-18] MEDS: PIPERACILL/TAZOBAC IV 3.375 GM in DEXTROSE 5% 100ML 100 ML IV SCH ×2 (13:49→23:34)
[2018-04-18] MEDS: METOPROLOL TARTRATE 1 MG/ML VIAL IV. SCH ×3 (13:53→23:50)
[2018-04-18] MEDS ORDERED: INSULIN HUMAN REGULAR IV BOLUS 4.5 UNIT in SYRINGE 0 ML IV SCH (14:15)
[2018-04-18] MEDS ORDERED: INSULIN REGULAR 250 UNITS in SODIUM CHLORIDE 0.9% 250ML 250 ML IV SCH (14:30)
--- NOTE | 2018-04-18 15:12 | OPERATIVE REPORT ---
DATE OF OPERATION: 04/18/2018 PREOPERATIVE DIAGNOSIS: Acute cholecystitis, cholelithiasis. POSTOPERATIVE DIAGNOSIS: Gangrene gallbladder. TITLE OF OPERATION: Laparoscopic cholecystectomy and SHAQUILLE drainage x1. SURGEON: Matilde Lilly MD ANESTHESIA: General. ESTIMATED BLOOD LOSS: About 15 mL. FINDINGS: Gangrene gallbladder. COMPLICATIONS: None. INDICATIONS FOR THE PROCEDURE: This is a 47-year-old gentleman who was admitted to hospital for right upper quadrant pain. The patient had a CT scan diagnosis of acute cholecystitis. I recommended to do a laparoscopic cholecystectomy, possible open, possible cholangiogram. I did talk to the patient about the benefit and risk, alternate procedure and indicated the risks may include but not limited such as bleeding, infection, injury to common bile duct, injury to the bowel, bile leak, may need ERCP, myocardial infarction, DVT, stroke, even , abscess. The patient understands. He signed informed consent and he agreed to proceed with the procedure. I answered all questions. DETAILS OF PROCEDURE: We brought the patient to the OR and put the patient in the supine position. The patient received SCD on bilateral legs to prevent DVT. Also the patient received 2 g Ancef IV for prophylactic antibiotic. The patient received general anesthesia without difficulty. The abdomen was prepped and draped in routine sterile fashion. After time out, I injected the local anesthesia by using 1% lidocaine mixed with 0.5% Marcaine just above umbilicus. I then made a small incision just above umbilicus, opened fascia, opened peritoneum under direct vision, put a Daryn trocar in, connected to CO2 to create pneumoperitoneum. Flow rate at 6 L per minute. Pressure not more than 14 mmHg. Once we got a nice pneumoperitoneum, we put the camera in, looked around the abdomen, showed normal finding on the stomach, small bowel, large bowel, liver; however, the gallbladder shows significant inflammation, gangrene covered with omentum. At this moment, we put another three 5-mm trocar on the right upper quadrant. Once all trocars in, we put a grasper and first we tried to peel down the omentum that covers the gallbladder. The gallbladder showed significant extension of the gangrene with gallbladder inflammation. At this moment, we decompressed the gallbladder with a large needle to suction the bile flow from the gallbladder. Then, we used a grasper for the base of the gallbladder, put in direction of the diaphragm and put another grasper to hold the pouch of the gallbladder, put the latter to expose the triangle of Calot. The cystic duct was identified and mobilized. Then the two 5 mm metal clips on the proximal cystic duct, one on the distal cystic duct, and used the scissor transection of the cystic duct. Rechecked, no active bleeding, no bile leak from the cystic duct. Then the cystic duct artery was identified, mobilized. Then, we put two 5 mm metal clip on the proximal cystic artery and one on the distal cystic artery. I then used a scissor for transection of the cystic artery. Rechecked, no active bleeding. Then, I used a Bovie to take down the gallbladder from the liver bed. Rechecked, no active bleeding from the liver bed, no bile leak from the liver bed. Then, we removed the gallbladder through the catch bag. Then, we reinserted the Daryn trocar in, connected to CO2 to create pneumoperitoneum, again looked around the abdomen, no injury to the bowel, no active bleeding from the liver bed, no bile leak from liver bed. Then, we decided to put one SHAQUILLE drainage x1 in the area of the gallbladder fossae based on significant gallbladder inflammation. recheck No active bleeding from the liver bed. Pneumoperitoneum was then released. I closed the umbilical incision in fascial layer by using #1 Vicryl [id number] x2, closed the subcutaneous layer by using 2-0 Vicryl interrupted and closed the skin by using 4-0 Vicryl continuous running, and closed another three 5 mm trocar site only by using 4-0 Vicryl. Then, we put the dressing on. The patient tolerated the procedure well. All instrument, needle, and sponge count were correct x2 at the end of case. Patient was transferred to recovery room in stabled condition. After procedure, I talked to patient's on the phone about the OR findings, procedure we did and she understood. The specimen was sent to pathology. I attest to the content of the Intraoperative Record and any orders documented therein. Any exceptions are noted below. CAITY
[2018-04-18] MEDS: INSULIN ASPART 100 UNITS/ML 3 ML PEN SC SCH ×2 (16:48→21:00)
[2018-04-18] MEDS ORDERED: CHLORASEPTIC 1.4% SOLN 180 ML BTL MT PRN (18:00)
--- NOTE | 2018-04-18 19:03 | Progress Note ---
Internal Med Progress Note Date of Service: Apr 18, 2018. Provider Documentation: SUBJECTIVE: Patient was seen postcholecystectomy Having some pain at the cholecystectomy site, but feels much better than the pain and discomfort that he experienced earlier this morning No nausea Not able to pass gas yet Afebrile Vitals remained stable OBJECTIVE: Vital Signs-as noted below Exam: General-no sign of distress, comfortable Eyes-sclera nonicteric, pupils bilateral equal reactive light extraocular muscle intact ENT-moist oral mucosa Neck-no JVD, no carotid bruit trachea midline Lungs-clear to auscultate no wheeze or Heart- regular Abdomen-status post laparoscopic cholecystectomy, surgical Steri-Strip strep intact, SHAQUILLE drain present Extremities-no rash or deformity, no lower extremity edema Neuro-no focal neurological deficit Psych-alert and awake oriented 3 ,normal mood and affect Lymph nodes-no lymphadenopathy Lab data as noted below. ASSESSMENT & PLAN: RT UPPER QUADRANT PAIN/ACUTE CHOLECYSTITIS : Status post cholecystectomy today Recovering well postop Presented with right upper quadrant discomfort/sharp pain for more than 2 days Associated with nausea vomiting Ultrasound of gallbladder: Acute cholelithiasis without sonographic evidence of acute cholecystitis/ hepatomegaly with severe hepatic steatosis Sonographic Cash sign absent. Common bile duct measures up to 0.5 cm in diameter Developed worsening of right upper quadrant pain last night CT abdomen pelvis with contrast shows acute cholecystitis Surgery consulted Patient was taken emergently to OR, underwent cholecystectomy of gangrenous gallbladder Patient will be continued with IV Zosyn Continue IV fluids Clear liquid diet for now Advance diet in a.m. as tolerated/as per recommendation by surgery HYPERTENSIVE URGENCY Possible secondary to pain and discomfort Oral Cardizem on hold for acute cholecystitis/n.p.o. status Ordered for IV Lopressor scheduled dose preop P.o. Cardizem will be resumed HISTORY OF PAROXYSMAL AFIB : Eliquis on hold as patient for surgical procedure Continue beta-johanna Cardizem Anticoagulation to be resumed when safe in terms of postop bleeding complication or surgery ELEVATED LACTIC ACID/SEPSIS : Meets criteria for sepsis developed tachycardia, leukocytosis, elevated lactic acid Due to acute cholecystitis Status post emergent cholecystectomy today Continue IV fluids Trend lactic acid level Empiric antibiotic with IV Zosyn Follow blood culture Patient is hemodynamically stable enough to be monitored in PCU POORLY CONTROLLED TYPE 2 DIABETES WITH HYPERGLYCEMIA home Diabetic meds : -Metformin 1 gm BID -Glipizide 20 mg BID -Tradjenta 5 mg daily * History elevated more than 300, with elevated beta hydroxybutyrate acid on admission No evidence of DKA, normal bicarb normal anion gap Beta hydroxybutyrate acid level normalized after IV fluids and subcu insulin poorly controlled diabetes with his average blood sugar runs between 250-300 A1c = 8.9 % 04/05/18 Appreciate pharmacy input for glycemic management Given 6 mg IV insulin bolus, Followed by basal Lantus and insulin sliding scale Appreciate pharmacy input for glycemic management Hemoglobin A1c shows suboptimal control of blood sugar in spite of being on 3 oral meds Patient will benefit with transition to insulin for better management of blood sugar and improvement of hemoglobin A1c Pharmacy recommendation Patient should be discharged on basal Lantus 10 units daily 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 intake, blood glycemia, dehydration Baseline creatinine 0.9 Presented with elevated creatinine of more than 1 (patient also received IV contrast for CTA of the chest) Renal function returned to baseline after IV hydration Continue to follow PRP Avoid NSAIDs HYPERLIPIDEMIA Statin on hold for possible gallbladder disease CORONARY ARTERY DISEASE No evidence of cardiac ischemia or evolving AL Appreciate input from cardiology Recent cardiac cath showed 100% distal RCA occlusion with collaterals, proximal LAD stenosis up to 50% Medical management was recommended Echo shows no new wall motion abnormality, Echo 04/17/2018 Left ventricle is normal in size. There is mild concentric left ventricular hypertrophy. There is focal inferior and inferoseptal basal akinesis with thinning and scarring. Posterior wall is mildly hypokinetic at the base. All other wall segments contract normally (finding is similar to prior echocardiogram) Ejection fraction 5055% There is no significant valvular disease There is trace mitral regurgitation DIABETIC NEUROPATHY ASSOCIATED WITH TYPE 2 DIABETES Lyrica on hold for n.p.o. status/acute abdomen HISTORY OF CVA History of CVA Eliquis on hold for in early 2016, with no focal neurological deficit Possible secondary to paroxysmal A. fib Patient will be continued with Cardizem, beta johanna for rate and rhythm controlled Eliquis /Anticoagulation to be resumed when safe in terms of postop bleeding complication or surgery OBESITY(BMI 30.034.9) Encourage lifestyle modification and reduction of cardiovascular risk factor Patient is counseled for diet and exercise HISTORY OF RENAL CELL CARCINOMA Status post partial left nephrectomy on 05/[address] Miguel at [facility] HISTORY OF DEPRESSION: Zoloft on hold, for n.p.o. status, possible cholecystitis Mood stable CODE STATUS: Full code DVT PROPHYLAXIS SCD and teds Eliquis kept on hold for surgical procedure DISPOSITION Expected to be discharged home when medically stable Medicine follow-up with Dr. Sofia at [facility] [place] Vital Signs: Date Time Temp Pulse Resp B/P (MAP) Pulse Ox O2 Delivery O2 Flow Rate FiO2 04/19/18 07:55 Room Air 04/19/18 07:42 37.2 79 20 154/101 (118) 92 Room Air 04/19/18 06:26 93 157/93 04/19/18 03:48 36.6 93 20 153/76 (101) 92 Room Air 04/18/18 23:50 70 120/80 04/18/18 23:48 36.7 102 18 129/81 (97) 92 Room Air 04/18/18 20:00 Room Air 04/18/18 19:01 37.6 97 17 120/83 (95) 94 Room Air 04/18/18 17:57 111 04/18/18 15:30 110 22 136/82 (100) 96 Nasal Cannula 4.0 04/18/18 15:07 37.3 100 16 152/94 (113) 96 Nasal Cannula 4.0 04/18/18 14:30 101 22 156/99 (118) 96 Nasal Cannula 4.0 04/18/18 14:15 96 22 153/95 (114) 96 Nasal Cannula 4.0 04/18/18 14:00 36.9 96 22 154/101 (118) 97 Nasal Cannula 4.0 04/18/18 13:53 104 04/18/18 13:45 36.9 102 20 153/101 (118) 97 Nasal Cannula 4.0 04/18/18 13:25 37.0 101 20 160/103 96 Nasal Cannula 4 04/18/18 13:15 98 15 160/106 95 Nasal Cannula 4 04/18/18 13:11 102 159/100 04/18/18 13:05 101 21 159/93 95 Nasal Cannula 4 04/18/18 12:55 101 18 150/105 94 Nasal Cannula 4 04/18/18 12:45 96 18 163/103 95 Nasal Cannula 4 04/18/18 12:44 104 149/95 04/18/18 12:35 102 21 159/105 96 Oxymask 10 04/18/18 12:25 105 19 152/92 94 Oxymask 10 04/18/18 12:25 108 146/99 04/18/18 12:16 37.2 110 19 146/93 95 Oxymask 10 Lab Results: Results Past 24 Hours Test 04/18/18 09:46 04/18/18 12:21 04/18/18 13:03 04/18/18 13:46 Range/Units Bedside Glucose 289 329 248 202 70-99 mg/dl Test 04/18/18 15:45 04/18/18 16:46 04/18/18 17:50 04/18/18 18:45 Range/Units Bedside Glucose 222 219 186 177 70-99 mg/dl Test 04/18/18 19:28 04/18/18 20:44 04/18/18 22:49 04/18/18 23:48 Range/Units White Blood Count 11.79 4.8-10.8 K/uL Red Blood Count 4.64 4.7-6.1 M/uL Hemoglobin 14.1 14.0-18.0 g/dL Hematocrit 39.7 42-52 % Mean Corpuscular Volume 85.6 80-100 fL Mean Corpuscular Hemoglobin 30.4 25-34 pg Mean Corpuscular Hemoglobin Concent 35.5 32-36 g/dl RDW Standard Deviation 42.9 36.4-46.3 fL RDW Coefficient of Variation 13.9 11.5-14.5 % Platelet Count 182 130-400 K/uL Mean Platelet Volume 9.9 7.4-10.4 fL Sodium Level 132 136-145 mmol/L Potassium Level 3.9 3.5-5.1 mmol/L Chloride Level 98 98-107 mmol/L Carbon Dioxide Level 29 21-32 mmol/L Anion Gap 5.0 3-11 mmol/L Blood Urea Nitrogen 14 7-18 mg/dl Creatinine 0.99 0.60-1.40 mg/dl Est Creatinine Clear Calc Drug Dose 127.6 ml/min Estimated GFR () 104.7 Estimated GFR (Non- 90.3 BUN/Creatinine Ratio 14.5 10-20 Random Glucose 154 70-99 mg/dl Lactic Acid Level 1.2 0.4-2.0 mmol/L Calcium Level 8.2 8.5-10.1 mg/dl Total Bilirubin 0.6 0.2-1 mg/dl Direct Bilirubin 0.2 0-0.2 mg/dl Aspartate Amino Transf (AST/SGOT) 47 15-37 U/L Alanine Aminotransferase (ALT/SGPT) 56 12-78 U/L Alkaline Phosphatase 63 45-117 U/L Total Protein 7.0 6.4-8.2 gm/dl Albumin 3.1 3.4-5.0 gm/dl Globulin 3.9 2.5-4.0 gm/dl Albumin/Globulin Ratio 0.8 0.9-2 Bedside Glucose 142 97 101 70-99 mg/dl Test 04/19/18 00:46 04/19/18 01:42 04/19/18 02:39 04/19/18 03:47 Range/Units Bedside Glucose 105 94 99 83 70-99 mg/dl Test 04/19/18 04:07 04/19/18 04:56 04/19/18 05:57 04/19/18 06:29 Range/Units Bedside Glucose 128 127 155 70-99 mg/dl White Blood Count 9.01 4.8-10.8 K/uL Red Blood Count 4.48 4.7-6.1 M/uL Hemoglobin 13.7 14.0-18.0 g/dL Hematocrit 39.2 42-52 % Mean Corpuscular Volume 87.5 80-100 fL Mean Corpuscular Hemoglobin 30.6 25-34 pg Mean Corpuscular Hemoglobin Concent 34.9 32-36 g/dl RDW Standard Deviation 45.5 36.4-46.3 fL RDW Coefficient of Variation 14.2 11.5-14.5 % Platelet Count 156 130-400 K/uL Mean Platelet Volume 9.9 7.4-10.4 fL Prothrombin Time 11.4 9.0-12.0 SECONDS Prothromb Time International Ratio 1.1 0.9-1.1 Activated Partial Thromboplast Time 34.2 21.0-31.0 SECONDS Partial Thromboplastin Ratio 1.3 Sodium Level 134 136-145 mmol/L Potassium Level 3.5 3.5-5.1 mmol/L Chloride Level 100 98-107 mmol/L Carbon Dioxide Level 25 21-32 mmol/L Anion Gap 9.0 3-11 mmol/L Blood Urea Nitrogen 14 7-18 mg/dl Creatinine 0.94 0.60-1.40 mg/dl Est Creatinine Clear Calc Drug Dose 135.7 ml/min Estimated GFR () 111.5 Estimated GFR (Non- 96.2 BUN/Creatinine Ratio 14.6 10-20 Random Glucose 128 70-99 mg/dl Lactic Acid Level 1.2 0.4-2.0 mmol/L Calcium Level 7.7 8.5-10.1 mg/dl Magnesium Level 2.1 1.8-2.4 mg/dl Total Bilirubin 0.9 0.2-1 mg/dl Direct Bilirubin 0.2 0-0.2 mg/dl Aspartate Amino Transf (AST/SGOT) 62 15-37 U/L Alanine Aminotransferase (ALT/SGPT) 70 12-78 U/L Alkaline Phosphatase 63 45-117 U/L Total Protein 6.7 6.4-8.2 gm/dl Albumin 2.8 3.4-5.0 gm/dl Globulin 3.9 2.5-4.0 gm/dl Albumin/Globulin Ratio 0.7 0.9-2 Lipase 59 73-393 U/L Test 04/19/18 07:30 Range/Units Bedside Glucose 153 70-99 mg/dl
[2018-04-18 19:39] LABS: HEMATOCRIT 39.7 % (42-52); HEMOGLOBIN 14.1 g/dL (14.0-18.0); MEAN CELL VOLUME 85.6 fL (80-100); MEAN CORPUSCULAR HEMOGLOBIN 30.4 pg (25-34); MEAN PLATELET VOLUME 9.9 fL (7.4-10.4); PLATELET COUNT 182 K/uL (130-400); RED CELL DISTRIBUTION WIDTH CV 13.9 % (11.5-14.5); RED CELL DISTRIBUTION WIDTH SD 42.9 fL (36.4-46.3); WHITE BLOOD COUNT 11.79 K/uL (4.8-10.8)
[2018-04-18] MEDS ORDERED: SODIUM CHLORIDE 0.9% 1000ML 1,000 ML IV SCH (19:45)
[2018-04-18 19:58] LABS: MEAN CORPUSCULAR HGB CONC 35.5 g/dl (32-36)
[2018-04-18 20:05] LABS: ALBUMIN 3.1 gm/dl (3.4-5.0); CALCIUM 8.2 mg/dl (8.5-10.1); CREATININE 0.99 mg/dl (0.60-1.40); POTASSIUM 3.9 mmol/L (3.5-5.1)
[2018-04-19] VITALS (8 sets, daily range): BP systolic 129–173; BP diastolic 76–101; PULSE 50–102; TEMP 36.5–37.3; O2SAT 90–92; Ht 185.4 cm; Wt 122.0 kg
[2018-04-19] MEDS: HYDROmorphone INJ 1 MG/ML SYR IV PRN ×6 (03:55→21:50)
[2018-04-19] MEDS: PIPERACILL/TAZOBAC IV 3.375 GM in DEXTROSE 5% 100ML 100 ML IV SCH ×3 (05:42→21:50)
[2018-04-19] MEDS ORDERED: CEFAZOLIN SOD 2000MG/15 ML IV PUSH IV ONE (06:00)
[2018-04-19 06:06] LABS: HEMATOCRIT 39.2 % (42-52); HEMOGLOBIN 13.7 g/dL (14.0-18.0); MEAN CELL VOLUME 87.5 fL (80-100); MEAN CORPUSCULAR HEMOGLOBIN 30.6 pg (25-34); MEAN CORPUSCULAR HGB CONC 34.9 g/dl (32-36); MEAN PLATELET VOLUME 9.9 fL (7.4-10.4); PLATELET COUNT 156 K/uL (130-400); RED CELL DISTRIBUTION WIDTH CV 14.2 % (11.5-14.5); RED CELL DISTRIBUTION WIDTH SD 45.5 fL (36.4-46.3); WHITE BLOOD COUNT 9.01 K/uL (4.8-10.8)
[2018-04-19 06:20] LABS: INR 1.1 (0.9-1.1); PTT PATIENT 34.2 SECONDS (21.0-31.0)
[2018-04-19] MEDS: METOPROLOL TARTRATE 1 MG/ML VIAL IV. SCH ×5 (06:26→23:22)
[2018-04-19 06:45] LABS: ALBUMIN 2.8 gm/dl (3.4-5.0); CALCIUM 7.7 mg/dl (8.5-10.1); CREATININE 0.94 mg/dl (0.60-1.40); POTASSIUM 3.5 mmol/L (3.5-5.1); TOTAL PROTEIN 6.7 gm/dl (6.4-8.2)
[2018-04-19] MEDS ORDERED: INSULIN ASPART 100 UNITS/ML 3 ML PEN SC SCH (07:30)
[2018-04-19] MEDS: ENOXAPARIN 40 MG/0.4 ML SYR SQ SCH (08:28)
[2018-04-19] MEDS: INSULIN GLARGINE SOLOSTAR 100 UNITS/ML 3 ML PEN SC SCH ×2 (08:29→20:52)
[2018-04-19] MEDS ORDERED: DILTIAZEM HCL 240 MG CAPCR PO ONE (09:28)
[2018-04-19] MEDS ORDERED: METOPROLOL TARTRATE 1 MG/ML VIAL IV ONE (10:10)
--- NOTE | 2018-04-19 10:30 | Pharmacy Progress Note ---
Pharmacy Glycemic Short Note 2 Date of Service Apr 19, 2018. OUTPATIENT ANTIDIABETIC REGIMEN: * Metformin 1 gm BID * Glipizide 20 mg BID * Tradjenta 5 mg daily * A1c = 8.9 % 04/05/18 Item Value Date Time Bedside Glucose 294 mg/dl H 04/18/18 0716 Bedside Glucose 289 mg/dl H 04/18/18 0946 Bedside Glucose 329 mg/dl H 04/18/18 1221 Bedside Glucose 202 mg/dl H 04/18/18 1346 Bedside Glucose 222 mg/dl H 04/18/18 1545 Bedside Glucose 186 mg/dl H 04/18/18 1750 Bedside Glucose 142 mg/dl H 04/18/18 2044 Bedside Glucose 97 mg/dl 04/18/18 2249 Bedside Glucose 101 mg/dl H 04/18/18 2348 Bedside Glucose 105 mg/dl H 04/19/18 0046 Bedside Glucose 83 mg/dl 04/19/18 0347 Bedside Glucose 128 mg/dl H 04/19/18 0407 Bedside Glucose 153 mg/dl H 04/19/18 0730 ASSESSMENT: Please see previous notes for background information, in short: * Mr Haney is POD #1 s/p cholecystectomy. Diet advanced to clear liquids. * He had significant improvement in glycemic control after initiation of IV insulin infusion yesterday afternoon. * BSGs have been at goal since around midnight. Insulin infusion has been on hold since around 0400. I instructed RN to discontinue the infusion this AM. Will continue to manage with SQ basal + bolus insulin. * Patient was ordered a one time dose of dexamethasone 10 mg IV for today @1230. * I will temporarily tighten CF/CR from 20/7 to 15/5 in anticipation of steroid induced hyperglycemia. * I will give an additional 10 units of Lantus now and change to dose per scale at HS. * I suspect we will be able to resume previous orders tomorrow afternoon once effect of DXM has subsided PLAN FOR INPATIENT GLYCEMIC CONTROL: * Continue to hold outpatient oral diabetes medications * Basal insulin * Lantus 20 units SQ this AM and extra 10 units given with lunch * Change to 20-30 units SQ BID starting 8/13 PM * 20 units for BSG < 140, 25 units for 140-200, 30 units for > 200 * Bolus insulin * NovoLog per scale ACHS or Q6hrs while NPO * Goal Range: Low 110 mg/dL - High 140 mg/dL * Correction Factor: 15 mg/dL/unit * Nutritional / Prandial insulin per carb ratio of 1 unit per 5 grams CHO consumed * add overnight check with coverage at 0400 PLAN FOR DISCHARGE: * A1c indicates suboptimal control on 3 oral agents. If patient did not recently initiate one of these, may need to consider starting once daily basal insulin - would recommend Lantus (or Basaglar) 15 units daily to start
--- NOTE | 2018-04-19 10:44 | Cardiology Follow-Up ---
Subjective General Date of Service: Apr 19, 2018. Chief Complaint: acute dafne; HTN; CAD Pt evaluation today including: conversation w/ patient, physical exam, chart review, lab review, review of studies, review of inpatient medication list History of Present Illness Patient feeling ok this AM. Notes ongoing abdominal pain but improving. Clear liquid diet. No nausea or vomiting. No chest pain or SOB. Has intermittent cough. No fever or chills. No orthopnea, PND. PO meds remain on hold. BP trending down from admission. Mildly tachycardic with PVC's this AM on telemetry Allergies Coded Allergies: Oxycodone (Unverified Adverse Reaction, Intermediate, HEADACHE, 04/16/18) Social History Smoking Status: Former Smoker (quit 01/23/09 with 100 pack year hx) Hx Tobacco Use In Past Year?: No Hx Alcohol Use - Type And Amou: No Hx Substance Use - Type And Am: No Problem List Medical Problems: (1) Hyperglycemia Status: Acute (2) Tachycardia Status: Acute Review of Systems Respiratory: + cough, No sputum, No shortness of breath, No dyspnea on exertion , No dyspnea at rest, No hemoptysis Cardiac: No chest pain, No orthopnea, No PND, No edema, No palpitations Physical Exam Vital Signs Last Vital Signs Documentation Date Time Temp Pulse Resp B/P (MAP) Pulse Ox O2 Delivery O2 Flow Rate FiO2 04/19/18 07:55 Room Air 04/19/18 07:42 37.2 79 20 154/101 (118) 92 04/18/18 15:30 4.0 Physical Exam Constitutional: General Apperance: overweight Level of Distress: acutely ill Psychiatric: Mental Status: active & alert Orientation: to time, to place, to person Eyes: Pupils: PERRLA Neck: supple Lungs: Respiratory effort: no dyspnea Auscultation: dry rales/crackles Cardiovascular: Heart Auscultation: RRR, no murmurs, no rubs Extremities: no edema Assessment and Plan Assessment and Plan 1. Acute dafne s/p POD 1 lap dafne, SHAQUILLE drain in place 2. History of PAF, currently NSR, continue IV metoprolol for now. Anticoagulation on hold for surgery. Resume once ok from surgical perfective. 3. Hypertension - improving. PO meds on hold. 4. CAD - no anginal symptoms. Resume PO meds when able. PLAN: Advance diet as tolerated per hospitalist/surgical team. Continue IV metoprolol for now Once able to resume oral mediations, restart home medications including metoprolol succinate 100 mg daily, diltiazem 240 mg daily, ASA 81 mg, Atorvastatin 80 mg, Apixaban 5 mg BID. Also takes losartan 100 mg and HCTZ 25 mg. Case discussed with Dr. Shaw. Will follow. Patient seen and personally examined. Agree with assessment and plan as noted above. Tolerated surgical procedure but not taking p.o. at this point in time. Patient may require higher dose of IV metoprolol given substantial dose at home i.e. 7.5 mg every 4 hours. Would optimize electrolytes/supplement potassium to avoid recurrence of atrial arrhythmias is seen in past. Resume anticoagulation when able Angel [facility] Laboratory Results Last 24 Hours Test 04/18/18 09:46 04/18/18 12:21 04/18/18 13:03 04/18/18 13:46 Bedside Glucose 289 mg/dl 329 mg/dl 248 mg/dl 202 mg/dl Test 04/18/18 15:45 04/18/18 16:46 04/18/18 17:50 04/18/18 18:45 Bedside Glucose 222 mg/dl 219 mg/dl 186 mg/dl 177 mg/dl Test 04/18/18 19:28 04/18/18 20:44 04/18/18 22:49 04/18/18 23:48 White Blood Count 11.79 K/uL Red Blood Count 4.64 M/uL Hemoglobin 14.1 g/dL Hematocrit 39.7 % Mean Corpuscular Volume 85.6 fL Mean Corpuscular Hemoglobin 30.4 pg Mean Corpuscular Hemoglobin Concent 35.5 g/dl RDW Standard Deviation 42.9 fL RDW Coefficient of Variation 13.9 % Platelet Count 182 K/uL Mean Platelet Volume 9.9 fL Sodium Level 132 mmol/L Potassium Level 3.9 mmol/L Chloride Level 98 mmol/L Carbon Dioxide Level 29 mmol/L Anion Gap 5.0 mmol/L Blood Urea Nitrogen 14 mg/dl Creatinine 0.99 mg/dl Est Creatinine Clear Calc Drug Dose 127.6 ml/min Estimated GFR () 104.7 Estimated GFR (Non- 90.3 BUN/Creatinine Ratio 14.5 Random Glucose 154 mg/dl Lactic Acid Level 1.2 mmol/L Calcium Level 8.2 mg/dl Total Bilirubin 0.6 mg/dl Direct Bilirubin 0.2 mg/dl Aspartate Amino Transf (AST/SGOT) 47 U/L Alanine Aminotransferase (ALT/SGPT) 56 U/L Alkaline Phosphatase 63 U/L Total Protein 7.0 gm/dl Albumin 3.1 gm/dl Globulin 3.9 gm/dl Albumin/Globulin Ratio 0.8 Bedside Glucose 142 mg/dl 97 mg/dl 101 mg/dl Test 04/19/18 00:46 04/19/18 01:42 04/19/18 02:39 04/19/18 03:47 Bedside Glucose 105 mg/dl 94 mg/dl 99 mg/dl 83 mg/dl Test 04/19/18 04:07 04/19/18 04:56 04/19/18 05:57 04/19/18 06:29 Bedside Glucose 128 mg/dl 127 mg/dl 155 mg/dl White Blood Count 9.01 K/uL Red Blood Count 4.48 M/uL Hemoglobin 13.7 g/dL Hematocrit 39.2 % Mean Corpuscular Volume 87.5 fL Mean Corpuscular Hemoglobin 30.6 pg Mean Corpuscular Hemoglobin Concent 34.9 g/dl RDW Standard Deviation 45.5 fL RDW Coefficient of Variation 14.2 % Platelet Count 156 K/uL Mean Platelet Volume 9.9 fL Prothrombin Time 11.4 SECONDS Prothromb Time International Ratio 1.1 Activated Partial Thromboplast Time 34.2 SECONDS Partial Thromboplastin Ratio 1.3 Sodium Level 134 mmol/L Potassium Level 3.5 mmol/L Chloride Level 100 mmol/L Carbon Dioxide Level 25 mmol/L Anion Gap 9.0 mmol/L Blood Urea Nitrogen 14 mg/dl Creatinine 0.94 mg/dl Est Creatinine Clear Calc Drug Dose 135.7 ml/min Estimated GFR () 111.5 Estimated GFR (Non- 96.2 BUN/Creatinine Ratio 14.6 Random Glucose 128 mg/dl Lactic Acid Level 1.2 mmol/L Calcium Level 7.7 mg/dl Magnesium Level 2.1 mg/dl Total Bilirubin 0.9 mg/dl Direct Bilirubin 0.2 mg/dl Aspartate Amino Transf (AST/SGOT) 62 U/L Alanine Aminotransferase (ALT/SGPT) 70 U/L Alkaline Phosphatase 63 U/L Total Protein 6.7 gm/dl Albumin 2.8 gm/dl Globulin 3.9 gm/dl Albumin/Globulin Ratio 0.7 Lipase 59 U/L Test 04/19/18 07:30 Bedside Glucose 153 mg/dl
[2018-04-19] MEDS ORDERED: D5W AND NSS 1,000 ML IV SCH (10:45)
[2018-04-19] MEDS ORDERED: NURSING VERBAL MED ORDER ONE (11:00)
[2018-04-19] MEDS: POTASSIUM CHLORIDE INJ 40 MEQ in D5W AND NSS 1,000 ML IV SCH ×2 (11:12→18:51)
--- NOTE | 2018-04-19 12:11 | Surgery Progress Note ---
Surgery Progress Note Date of Service Apr 19, 2018. Subjective Post OP Day: 1 (s/p laparoscopic cholecystectomy) preoperative pain has resolved now having surgical pain mostly in the RUQ no chest pain, shortness of breath, difficulty breathing + cough and hoarseness Burning at tip of penis, might have "yeast infection" but no burning on urination. Has not ambulated since surgery, only sat up in bed. Dr. Castro updated us on some airway edema and aspiration post operatively. Has ordered IV Decadron and kept NPO for now to reduce aspiration risk Objective Vital Signs: Date Time Temp Pulse Resp B/P (MAP) Pulse Ox O2 Delivery O2 Flow Rate FiO2 04/19/18 10:36 102 162/92 04/19/18 10:34 37.1 102 16 162/92 (115) 92 Nasal Cannula 2.0 04/19/18 07:55 Room Air 04/19/18 07:42 37.2 79 20 154/101 (118) 92 Room Air 04/19/18 06:26 93 157/93 04/19/18 03:48 36.6 93 20 153/76 (101) 92 Room Air 04/18/18 23:50 70 120/80 04/18/18 23:48 36.7 102 18 129/81 (97) 92 Room Air 04/18/18 20:00 Room Air 04/18/18 19:01 37.6 97 17 120/83 (95) 94 Room Air 04/18/18 17:57 111 04/18/18 15:30 110 22 136/82 (100) 96 Nasal Cannula 4.0 04/18/18 15:07 37.3 100 16 152/94 (113) 96 Nasal Cannula 4.0 04/18/18 14:30 101 22 156/99 (118) 96 Nasal Cannula 4.0 04/18/18 14:15 96 22 153/95 (114) 96 Nasal Cannula 4.0 04/18/18 14:00 36.9 96 22 154/101 (118) 97 Nasal Cannula 4.0 04/18/18 13:53 104 04/18/18 13:45 36.9 102 20 153/101 (118) 97 Nasal Cannula 4.0 04/18/18 13:25 37.0 101 20 160/103 96 Nasal Cannula 4 04/18/18 13:15 98 15 160/106 95 Nasal Cannula 4 04/18/18 13:11 102 159/100 04/18/18 13:05 101 21 159/93 95 Nasal Cannula 4 04/18/18 12:55 101 18 150/105 94 Nasal Cannula 4 04/18/18 12:45 96 18 163/103 95 Nasal Cannula 4 04/18/18 12:44 104 149/95 04/18/18 12:35 102 21 159/105 96 Oxymask 10 04/18/18 12:25 105 19 152/92 94 Oxymask 10 04/18/18 12:25 108 146/99 04/18/18 12:16 37.2 110 19 146/93 95 Oxymask 10 Physical Exam: SHAQUILLE drainage (serosanguineous) General Appearance: no apparent distress, + obese Head: normocephalic, atraumatic Neck: trachea midline Respiratory/Chest: no respiratory distress, no accessory muscle use Abdomen: non distended, soft, no organomegaly, no pulsatile mass, + tenderness (RUQ and at incision sites appropriate post op) Incision(s): clean, dry, intact (Dressings clean and dry, incisions not inspected POD # 1) Laboratory Results: Results Past 24 Hours Test 04/18/18 12:21 04/18/18 13:03 04/18/18 13:46 04/18/18 15:45 Range/Units Bedside Glucose 329 248 202 222 70-99 mg/dl Test 04/18/18 16:46 04/18/18 17:50 04/18/18 18:45 04/18/18 19:28 Range/Units Bedside Glucose 219 186 177 70-99 mg/dl White Blood Count 11.79 4.8-10.8 K/uL Red Blood Count 4.64 4.7-6.1 M/uL Hemoglobin 14.1 14.0-18.0 g/dL Hematocrit 39.7 42-52 % Mean Corpuscular Volume 85.6 80-100 fL Mean Corpuscular Hemoglobin 30.4 25-34 pg Mean Corpuscular Hemoglobin Concent 35.5 32-36 g/dl RDW Standard Deviation 42.9 36.4-46.3 fL RDW Coefficient of Variation 13.9 11.5-14.5 % Platelet Count 182 130-400 K/uL Mean Platelet Volume 9.9 7.4-10.4 fL Sodium Level 132 136-145 mmol/L Potassium Level 3.9 3.5-5.1 mmol/L Chloride Level 98 98-107 mmol/L Carbon Dioxide Level 29 21-32 mmol/L Anion Gap 5.0 3-11 mmol/L Blood Urea Nitrogen 14 7-18 mg/dl Creatinine 0.99 0.60-1.40 mg/dl Est Creatinine Clear Calc Drug Dose 127.6 ml/min Estimated GFR () 104.7 Estimated GFR (Non- 90.3 BUN/Creatinine Ratio 14.5 10-20 Random Glucose 154 70-99 mg/dl Lactic Acid Level 1.2 0.4-2.0 mmol/L Calcium Level 8.2 8.5-10.1 mg/dl Total Bilirubin 0.6 0.2-1 mg/dl Direct Bilirubin 0.2 0-0.2 mg/dl Aspartate Amino Transf (AST/SGOT) 47 15-37 U/L Alanine Aminotransferase (ALT/SGPT) 56 12-78 U/L Alkaline Phosphatase 63 45-117 U/L Total Protein 7.0 6.4-8.2 gm/dl Albumin 3.1 3.4-5.0 gm/dl Globulin 3.9 2.5-4.0 gm/dl Albumin/Globulin Ratio 0.8 0.9-2 Test 04/18/18 20:44 04/18/18 22:49 04/18/18 23:48 04/19/18 00:46 Range/Units Bedside Glucose 142 97 101 105 70-99 mg/dl Test 04/19/18 01:42 04/19/18 02:39 04/19/18 03:47 04/19/18 04:07 Range/Units Bedside Glucose 94 99 83 128 70-99 mg/dl Test 04/19/18 04:56 04/19/18 05:57 04/19/18 06:29 04/19/18 07:30 Range/Units Bedside Glucose 127 155 153 70-99 mg/dl White Blood Count 9.01 4.8-10.8 K/uL Red Blood Count 4.48 4.7-6.1 M/uL Hemoglobin 13.7 14.0-18.0 g/dL Hematocrit 39.2 42-52 % Mean Corpuscular Volume 87.5 80-100 fL Mean Corpuscular Hemoglobin 30.6 25-34 pg Mean Corpuscular Hemoglobin Concent 34.9 32-36 g/dl RDW Standard Deviation 45.5 36.4-46.3 fL RDW Coefficient of Variation 14.2 11.5-14.5 % Platelet Count 156 130-400 K/uL Mean Platelet Volume 9.9 7.4-10.4 fL Prothrombin Time 11.4 9.0-12.0 SECONDS Prothromb Time International Ratio 1.1 0.9-1.1 Activated Partial Thromboplast Time 34.2 21.0-31.0 SECONDS Partial Thromboplastin Ratio 1.3 Sodium Level 134 136-145 mmol/L Potassium Level 3.5 3.5-5.1 mmol/L Chloride Level 100 98-107 mmol/L Carbon Dioxide Level 25 21-32 mmol/L Anion Gap 9.0 3-11 mmol/L Blood Urea Nitrogen 14 7-18 mg/dl Creatinine 0.94 0.60-1.40 mg/dl Est Creatinine Clear Calc Drug Dose 135.7 ml/min Estimated GFR () 111.5 Estimated GFR (Non- 96.2 BUN/Creatinine Ratio 14.6 10-20 Random Glucose 128 70-99 mg/dl Lactic Acid Level 1.2 0.4-2.0 mmol/L Calcium Level 7.7 8.5-10.1 mg/dl Magnesium Level 2.1 1.8-2.4 mg/dl Total Bilirubin 0.9 0.2-1 mg/dl Direct Bilirubin 0.2 0-0.2 mg/dl Aspartate Amino Transf (AST/SGOT) 62 15-37 U/L Alanine Aminotransferase (ALT/SGPT) 70 12-78 U/L Alkaline Phosphatase 63 45-117 U/L Total Protein 6.7 6.4-8.2 gm/dl Albumin 2.8 3.4-5.0 gm/dl Globulin 3.9 2.5-4.0 gm/dl Albumin/Globulin Ratio 0.7 0.9-2 Lipase 59 73-393 U/L Assessment & Plan POD # 1 s/p laparoscopic cholecystectomy -vitals stable, T max post op 37.6, leukocytosis resolved - BC still pending - LFTS within normal limits - preoperative pain resolved, post op pain controlled - Post operative airway edema and aspiration risk Plan: Continue IV Dilaudid prn pain, once able to take oral meds may start PO narcotics as needed Continue IV fluids Continue IV antibiotics for now Continue NPO except ice chips and sips Continue SHAQUILLE drain to bulb suction Encouraged OOB to chair and ambulation with assistance today Continue Lovenox and SCDs for DVT prophylaxis Continue current medical management Dr. Lilly has seen patient, agrees with above
[2018-04-19] MEDS: ENALAPRILAT IV 1.25 MG in DEXTROSE 5% 25ML 25 ML IV SCH ×3 (12:22→23:23)
[2018-04-19] MEDS: INSULIN ASPART 100 UNITS/ML 3 ML PEN SC SCH ×2 (12:23→18:40)
[2018-04-19] MEDS ORDERED: DEXAMETHASONE INJ 10 MG in SYRINGE 0 ML IV ONE (12:30)
[2018-04-19] MEDS ORDERED: INSULIN GLARGINE SOLOSTAR 100 UNITS/ML 3 ML PEN SC ONE (13:00)
--- NOTE | 2018-04-19 18:12 | Anesthesiology Progress Note ---
Anesthesia Progress Note Date of Service Apr 19, 2018. Progress Notes I was requested to evaluate this patient for the c/o voice hoarseness and possible vocal cord injury.Patient is s/p laparoscopic cholecystectomy on 2017.Patient has c/o voice hoarseness and inability to "keep water down as it makes me cough and choke". Clinically the patient is stable. His lungs are clear to auscultation;heart rate is regular w/o murmur. Dr Castro has consulted ENT to evaluate the patient and he has ordered the patient to have Decadron to decrease potential vocal cord edema and swelling. I have had a detailed discussion with the patient regarding intubation and voice hoarseness and potential vocal cord injury .I 've expressed that we will do everything to address this issue. He expressed appreciation for this.
--- NOTE | 2018-04-19 21:47 | Progress Note ---
Medicine Progress Note Date & Time of Visit: Apr 19, 2018 at ~ 10:30 . Subjective CC: Follow-up visit for cholecystitis and other problems. HPI: Doing fairly well postoperatively. Having some postop pain. No nausea or vomiting. Experiencing hoarseness and coughing after swallowing liquids since surgery. ROS: General- no fever, no chills Resp- no shortness of breath Cardiac- no chest pain GI- as noted above in HPI - no difficulty voiding . Objective Last 8 Hrs Date Time Temp Pulse Resp B/P (MAP) Pulse Ox O2 Delivery O2 Flow Rate FiO2 04/19/18 20:21 88 129/78 04/19/18 19:17 36.7 88 18 129/78 (95) 92 04/19/18 16:06 98 141/91 04/19/18 16:00 90 Nasal Cannula 2.0 04/19/18 15:05 36.5 98 18 141/91 (108) 90 Physical Exam: General- lying in bed, no distress ENT- muffled voice Lungs- clear to auscultation; no respiratory distress Cardiovascular- RRR; no gallop appreciated; no JVD; no pretibial edema Abdomen- + bowel sounds, soft, nontender Extremities- no cyanosis; no calf tenderness Neuro- alert, oriented Skin- warm & dry . Laboratory Results: Last 24 Hours Test 04/18/18 22:49 04/18/18 23:48 04/19/18 00:46 04/19/18 01:42 Bedside Glucose 97 mg/dl 101 mg/dl 105 mg/dl 94 mg/dl Test 04/19/18 02:39 04/19/18 03:47 04/19/18 04:07 04/19/18 04:56 Bedside Glucose 99 mg/dl 83 mg/dl 128 mg/dl 127 mg/dl Test 04/19/18 05:57 04/19/18 06:29 04/19/18 07:30 04/19/18 12:03 White Blood Count 9.01 K/uL Red Blood Count 4.48 M/uL Hemoglobin 13.7 g/dL Hematocrit 39.2 % Mean Corpuscular Volume 87.5 fL Mean Corpuscular Hemoglobin 30.6 pg Mean Corpuscular Hemoglobin Concent 34.9 g/dl RDW Standard Deviation 45.5 fL RDW Coefficient of Variation 14.2 % Platelet Count 156 K/uL Mean Platelet Volume 9.9 fL Prothrombin Time 11.4 SECONDS Prothromb Time International Ratio 1.1 Activated Partial Thromboplast Time 34.2 SECONDS Partial Thromboplastin Ratio 1.3 Sodium Level 134 mmol/L Potassium Level 3.5 mmol/L Chloride Level 100 mmol/L Carbon Dioxide Level 25 mmol/L Anion Gap 9.0 mmol/L Blood Urea Nitrogen 14 mg/dl Creatinine 0.94 mg/dl Est Creatinine Clear Calc Drug Dose 135.7 ml/min Estimated GFR () 111.5 Estimated GFR (Non- 96.2 BUN/Creatinine Ratio 14.6 Random Glucose 128 mg/dl Lactic Acid Level 1.2 mmol/L Calcium Level 7.7 mg/dl Magnesium Level 2.1 mg/dl Total Bilirubin 0.9 mg/dl Direct Bilirubin 0.2 mg/dl Aspartate Amino Transf (AST/SGOT) 62 U/L Alanine Aminotransferase (ALT/SGPT) 70 U/L Alkaline Phosphatase 63 U/L Total Protein 6.7 gm/dl Albumin 2.8 gm/dl Globulin 3.9 gm/dl Albumin/Globulin Ratio 0.7 Lipase 59 U/L Bedside Glucose 155 mg/dl 153 mg/dl 200 mg/dl Test 04/19/18 18:01 04/19/18 20:50 Bedside Glucose 258 mg/dl 237 mg/dl Assessment & Plan CHOLECYSTITIS Presented with right upper quadrant pain. Gallbladder ultrasound demonstrated cholelithiasis without ultrasound criteria of cholecystitis. White count was initially 7310 and hernandez as high as 13,710 the morning of 04/18.. Laparoscopic cholecystectomy performed by Dr. Lilly on 04/18/18. Found to have gangrenous gallbladder. POD # 1. Continue piperacillin/tazobactam. SEPSIS Met criteria for sepsis morning of 04/18/18 when white count hernandez to 13,000 in association with tachycardia. Source of sepsis was cholecystitis. Blood cultures were obtained and patient was started on broad-spectrum antibiotic coverage with piperacillin/tazobactam. Serum lactate was 2.9. Repeat lactate was 1.2. No hypotension. HOARSENESS / SUSPECTED ASPIRATION Symptoms developed postoperatively after general anesthesia with endotracheal tube. Discussed with Anesthesia. ENT consulted. Dexamethasone 10 mg IV 1 recommended with reevaluation tomorrow. CORONARY ARTERY DISEASE History of ischemic heart disease, status post prior myocardial infarction . Cardiac catheterization on 04/09/18 demonstrated chronic RCA occlusion with collateral filling, tortuous LAD with 50% narrowing, 70% branch vessel stenosis of posterior descending artery . Serial troponins negative. Symptoms at time of admission attributed to cholecystitis. Seen in consultation by Cardiology. Echocardiogram demonstrated segmental wall motion abnormalities, overall LVEF 50 -55%. Currently NPO. Receiving IV metoprolol. HISTORY OF PAROXYSMAL ATRIAL FIBRILLATION Normal sinus rhythm at time of admission. PAF usually managed with metoprolol, diltiazem, apixaban. -[id number]-c-[id number]- Apixaban held for surgery. [corrected 04/20/18 @ 21:07 KEON] Currently NPO, receiving IV metoprolol. HYPERTENSION/HYPERTENSIVE URGENCY Blood pressures day of admission as high as 196 systolic. Cardiovascular medications adjusted and BP's improved. Currently n.p.o. and receiving IV metoprolol. DIABETES MELLITUS TYPE 2 Hemoglobin A1c 8.9 on 04/05/18. Random blood sugar at time of admission was 309. Pharmacy consulted for glycemic management. Oral -n-h-l-m-f-y-o-n-s- medications held. [corrected 04/20/18 @ 21:07 KEON] Receiving Lantus/NovoLog per protocol. Fasting blood sugar this morning 153. DYSLIPIDEMIA Resume atorvastatin when able to take oral meds patients. OBESITY Weight 127 kg, BMI 36.9. AHA / diabetic when diet resumed. DIABETIC NEUROPATHY Resume pregabalin when able to take oral medications. DEPRESSION Resume sertraline when able to take oral medications. VTE PROPHYLAXIS On apixaban for paroxysmal atrial fibrillation. Apixaban held for surgery. SCD's utilized preoperatively. Started on SQ enoxaparin postoperatively. Resume apixaban when able. DISPOSITION Expected discharge to home. Medical follow-up with Dr. Colmenares. . Current Inpatient Medications: Current Inpatient Medications Medications (Trade) Dose Ordered Sig/Jackie Route Start Time Stop Time Status Last Admin Dose Admin Ioversol (Optiray 320) 100 ml UD PRN IV 04/16/18 15:45 04/20/18 15:44 Glucose (Glucose Chew Tab) 4-8 Tablets 4 Tabl... UD PRN PO 04/16/18 18:30 05/16/18 18:29 Miscellaneous Information (Consult Glycemic Management Pharmacy) 1 ea UD PRN N/A 04/16/18 19:29 05/16/18 19:28 Ondansetron HCl (Zofran Inj) 4 mg Q6H PRN IV 04/16/18 18:45 05/16/18 18:44 04/16/18 19:35 4 MG Nitroglycerin (Nitrostat Tab) 0.4 mg UD PRN SL 04/16/18 18:45 05/16/18 18:44 Glucose (Glucose 40% Gel) 15-30 GRAMS 15 GRAMS... UD PRN PO 04/16/18 19:00 05/16/18 18:59 Glucose (Glucose Chew Tab) 4-8 Tablets 4 Tabl... UD PRN PO 04/16/18 19:00 05/16/18 18:59 Dextrose (Dextrose 50% 50ML Syringe) 25-50ML 25ML FOR ... UD PRN IV 04/16/18 19:00 05/16/18 18:59 04/19/18 03:52 25 ML Glucagon (Glucagon Inj) 1 mg UD PRN SQ 04/16/18 19:00 05/16/18 18:59 Carbohydrates (Carbohydrates For Hypoglycemia) 15-30 GRAMS 15 grams if BSG 54-69... UD PRN PO 04/16/18 19:00 05/16/18 18:59 Miscellaneous (Iv Fluids Completed) 1 ea PRN PRN N/A 04/16/18 21:15 04/16/19 21:14 Ioversol (Optiray 320) 125 ml UD PRN IV 04/17/18 16:45 04/21/18 16:44 Hydromorphone HCl (Dilaudid Inj) 1 mg Q3HWA PRN IV 04/17/18 23:00 04/30/18 21:44 04/19/18 16:31 1 MG Piperacillin Sod/ Tazobactam Sod 3.375 gm/Dextrose 115 ml @ 200 mls/hr Q8H IV 04/18/18 14:00 04/28/18 13:59 04/19/18 13:24 200 MLS/HR Miscellaneous Information (Consult) 1 ea UD PRN N/A 04/18/18 07:15 05/18/18 07:14 Enoxaparin Sodium (Lovenox Inj) 40 mg QAM SQ 04/19/18 09:00 05/19/18 08:59 04/19/18 08:28 40 MG Phenol (Chloraseptic 1.4% [place]) 1 sprays PRN PRN MT 04/18/18 18:00 05/18/18 17:59 Diltiazem HCl (Cardizem Cd Cap) 240 mg QAM PO 04/20/18 09:00 05/20/18 08:59 Metoprolol Tartrate (Lopressor Iv) 5 mg Q4 IV. 04/19/18 12:00 05/19/18 11:59 04/19/18 20:21 5 MG Enalaprilat 1.25 mg/Dextrose 26 ml @ 100 mls/hr Q6 IV 04/19/18 12:00 05/19/18 11:59 04/19/18 18:05 100 MLS/HR Potassium Chloride 40 meq/ Dextrose/Sodium Chloride 1,020 ml @ 125 mls/hr Q8H10M IV 04/19/18 10:45 05/19/18 10:44 04/19/18 18:51 125 MLS/HR Insulin Aspart (novoLOG ASPART) SLIDING SCALE Q6 ND 04/19/18 12:00 05/19/18 07:29 04/19/18 18:40 8 UNITS Insulin Aspart (novoLOG ASPART) SLIDING SCALE 0400 ND 04/20/18 04:00 04/20/18 04:01 Insulin Glargine (Lantus Solostar Pen) SEE PROTOCOL Q12 ND 04/19/18 21:00 05/19/18 20:59 04/19/18 20:52 30 UNITS
[2018-04-19] MEDS: ONDANSETRON INJ 2 MG/ML 2 ML VIAL IV PRN (21:50)
[2018-04-19] MEDS ORDERED: ALUMINUM/MAGNESIUM/SIMETH (MAALOX MAX) 30 ML UDC PO PRN (23:45)
[2018-04-20] VITALS (9 sets, daily range): BP systolic 124–160; BP diastolic 75–94; PULSE 47–114; TEMP 36.5–37.6; O2SAT 91–95
[2018-04-20] MEDS ORDERED: ALUMINUM/MAGNESIUM/SIMETH (MAALOX MAX) 30 ML UDC ONE (00:07)
[2018-04-20] MEDS: INSULIN ASPART 100 UNITS/ML 3 ML PEN SC SCH ×5 (00:10→22:16)
[2018-04-20] MEDS ORDERED: INSULIN ASPART 100 UNITS/ML 3 ML PEN SC SCH (04:00)
[2018-04-20] MEDS: POTASSIUM CHLORIDE INJ 40 MEQ in D5W AND NSS 1,000 ML IV SCH ×3 (04:16→17:58)
[2018-04-20] MEDS: METOPROLOL TARTRATE 1 MG/ML VIAL IV. SCH ×4 (04:24→16:41)
[2018-04-20] MEDS: PIPERACILL/TAZOBAC IV 3.375 GM in DEXTROSE 5% 100ML 100 ML IV SCH ×3 (06:05→22:14)
[2018-04-20] MEDS: ENALAPRILAT IV 1.25 MG in DEXTROSE 5% 25ML 25 ML IV SCH ×3 (06:05→17:57)
[2018-04-20] MEDS: HYDROmorphone INJ 1 MG/ML SYR IV PRN ×4 (06:11→22:22)
[2018-04-20 07:01] LABS: HEMATOCRIT 35.7 % (42-52); HEMOGLOBIN 12.5 g/dL (14.0-18.0); MEAN CELL VOLUME 86.7 fL (80-100); MEAN CORPUSCULAR HEMOGLOBIN 30.3 pg (25-34); MEAN PLATELET VOLUME 9.9 fL (7.4-10.4); PLATELET COUNT 181 K/uL (130-400); RED CELL DISTRIBUTION WIDTH CV 13.6 % (11.5-14.5); RED CELL DISTRIBUTION WIDTH SD 43.3 fL (36.4-46.3); WHITE BLOOD COUNT 8.63 K/uL (4.8-10.8)
[2018-04-20 07:43] LABS: CALCIUM 7.7 mg/dl (8.5-10.1); CREATININE 0.8 mg/dl (0.60-1.40); POTASSIUM 4.2 mmol/L (3.5-5.1)
[2018-04-20] MEDS ORDERED: LOSARTAN POTASSIUM 50 MG TAB PO SCH (09:00)
[2018-04-20] MEDS ORDERED: METOPROLOL SUCC 50MG EXT REL TAB PO SCH (09:00)
[2018-04-20] MEDS: ENOXAPARIN 40 MG/0.4 ML SYR SQ SCH (09:37)
[2018-04-20] MEDS: DILTIAZEM HCL 240 MG CAPCR PO SCH (09:37)
[2018-04-20] MEDS: INSULIN GLARGINE SOLOSTAR 100 UNITS/ML 3 ML PEN SC SCH ×2 (09:39→22:16)
--- NOTE | 2018-04-20 09:46 | Pharmacy Progress Note ---
Pharmacy Glycemic Short Note 2 Date of Service Apr 20, 2018. OUTPATIENT ANTIDIABETIC REGIMEN: * Metformin 1 gm BID * Glipizide 20 mg BID * Tradjenta 5 mg daily * A1c = 8.9 % 04/05/18 Item Value Date Time Bedside Glucose 153 mg/dl H 04/19/18 0730 Bedside Glucose 200 mg/dl H 04/19/18 1203 Bedside Glucose 258 mg/dl H 04/19/18 1801 Bedside Glucose 237 mg/dl H 04/19/18 2050 Bedside Glucose 192 mg/dl H 04/20/18 0421 Bedside Glucose 215 mg/dl H 04/20/18 0554 Random Glucose 195 mg/dl H 04/20/18 0636 ASSESSMENT: Please see previous notes for background information, in short: * Mr Haney is POD #2 s/p cholecystectomy. Diet was advanced to clear liquids for a short period of time yesterday, then changed back to NPO. * A significant change was made to insulin doses yesterday to cover for steroid induced hyperglycemia due to a one time dose of DXM 10 mg IV. * Patient received a total of 80 units of SQ insulin yesterday * Despite 50% increase in Lantus dose and tightening of CF/CR, BSGs remain > 200 mg/dL. Will further tighten Novolog CF/CR for breakfast and lunch only. * Will need to decrease insulin doses this evening once effect of DXM has subsided PLAN FOR INPATIENT GLYCEMIC CONTROL: * Continue to hold outpatient oral diabetes medications - pt NPO * Basal insulin - decrease * Lantus 30 units SQ this morning * Resume Lantus 20 units SQ BID starting this evening * Bolus insulin - tighten for breakfast and lunch * NovoLog per scale ACHS or Q6hrs while NPO * Goal Range: Low 110 mg/dL - High 140 mg/dL * Correction Factor: 12 mg/dL/unit - loosen to 18 starting with dinner * Nutritional / Prandial insulin per carb ratio of 1 unit per 4 grams CHO consumed - loosen to 6 starting with dinner PLAN FOR DISCHARGE: * A1c indicates suboptimal control on 3 oral agents. If patient did not recently initiate one of these, may need to consider starting once daily basal insulin - would recommend Lantus (or Basaglar) 15-20 units daily to start
--- NOTE | 2018-04-20 10:12 | Surgery Progress Note ---
Surgery Progress Note Date of Service Apr 20, 2018. Subjective Post OP Day: 2 (s/p laparoscopic cholecystectomy) + feeling well, + complaints (hoarse throat), + ambulating, + pain controlled, No chest pain, No SOB, No bowel movement, No nausea, No vomiting Objective Vital Signs: Date Time Temp Pulse Resp B/P (MAP) Pulse Ox O2 Delivery O2 Flow Rate FiO2 04/20/18 09:33 94 124/77 04/20/18 07:35 36.5 94 20 124/77 (93) 93 Oxymask 10.0 04/20/18 04:24 100 161/93 04/20/18 02:40 37.3 101 18 160/94 (116) 91 Room Air 04/20/18 00:01 Room Air 04/19/18 23:22 97 173/97 04/19/18 23:08 37.3 50 19 173/97 (122) 92 Room Air 04/19/18 20:21 88 129/78 04/19/18 19:17 36.7 88 18 129/78 (95) 92 04/19/18 16:06 98 141/91 04/19/18 16:00 90 Nasal Cannula 2.0 04/19/18 15:05 36.5 98 18 141/91 (108) 90 04/19/18 12:22 92 162/91 04/19/18 12:20 92 162/91 (114) 04/19/18 10:36 102 162/92 04/19/18 10:34 37.1 102 16 162/92 (115) 92 Nasal Cannula 2.0 General Appearance: WD/WN, no apparent distress Head: normocephalic, atraumatic Neck: trachea midline Respiratory/Chest: no respiratory distress, no accessory muscle use Abdomen: non distended, soft, no organomegaly, no pulsatile mass, + tenderness (in RUQ and at incision sites, appropriate post op) Incision(s): clean, dry, intact, no erythema Laboratory Results: Results Past 24 Hours Test 04/19/18 12:03 04/19/18 18:01 04/19/18 20:50 04/19/18 23:38 Range/Units Bedside Glucose 200 258 237 235 70-99 mg/dl Test 04/20/18 04:21 04/20/18 05:54 04/20/18 06:36 Range/Units Bedside Glucose 192 215 70-99 mg/dl White Blood Count 8.63 4.8-10.8 K/uL Red Blood Count 4.12 4.7-6.1 M/uL Hemoglobin 12.5 14.0-18.0 g/dL Hematocrit 35.7 42-52 % Mean Corpuscular Volume 86.7 80-100 fL Mean Corpuscular Hemoglobin 30.3 25-34 pg Mean Corpuscular Hemoglobin Concent 35.0 32-36 g/dl RDW Standard Deviation 43.3 36.4-46.3 fL RDW Coefficient of Variation 13.6 11.5-14.5 % Platelet Count 181 130-400 K/uL Mean Platelet Volume 9.9 7.4-10.4 fL Sodium Level 137 136-145 mmol/L Potassium Level 4.2 3.5-5.1 mmol/L Chloride Level 103 98-107 mmol/L Carbon Dioxide Level 27 21-32 mmol/L Anion Gap 6.0 3-11 mmol/L Blood Urea Nitrogen 15 7-18 mg/dl Creatinine 0.80 0.60-1.40 mg/dl Est Creatinine Clear Calc Drug Dose 159.6 ml/min Estimated GFR () 123.3 Estimated GFR (Non- 106.4 BUN/Creatinine Ratio 18.6 10-20 Random Glucose 195 70-99 mg/dl Calcium Level 7.7 8.5-10.1 mg/dl Magnesium Level 2.6 1.8-2.4 mg/dl Assessment & Plan POD # 2 s/p laparoscopic cholecystectomy -vitals stable, afebrile, leukocytosis resolved - BC negative 2/2 to date - preoperative pain resolved, post op pain controlled - Post operative airway edema and aspiration risk, + hoarseness Plan: Continue IV Dilaudid prn pain, once able to take oral meds may start PO narcotics as needed Continue IV fluids Continue IV antibiotics for now Continue NPO except ice chips and sips, await further eval in regards to airway edema. Once edema improves may have clear liquids and advance as tolerated from surgical standpoint Continue SHAQUILLE drain to bulb suction Encouraged OOB to chair and ambulation with assistance Continue Lovenox and SCDs for DVT prophylaxis Continue current medical management Dr. Connolly has seen patient, agrees with above
--- NOTE | 2018-04-20 11:18 | Anesthesiology Progress Note ---
Anesthesia Progress Note Date of Service Apr 20, 2018. Progress Notes The patient is a 47 y/o male POD #2 s/p laparoscopic cholecystectomy. The patient has had hoarseness and difficulty swallowing since his procedure. Dr. Gamboa saw the patient last night and Dr. Jim from ENT was consulted. Dr. Jim directed Dr. Castro to give the patient a dose of dexamethasone last night. The patient states that his hoarseness has not improved. The patient's surgery was emergent due to his gangrenous gallbladder. A preoperative exam was performed but was not documented. The patient was noted to have a thick oneill, intact teeth, and is a MP 3 airway. The patient had a rapid sequence intubation and was easily intubated with a Glidescope #4 and 7.5 ETT by Karthik Segundo CRNA. An OG tube was placed and removed without incident by Karthik. The patient tolerated the procedure well and was extubated without incident by Karthik as well. The patient briefly had an oral airway placed, but it was removed prior to transport to the PACU. The patient was hyperglycemic in the PACU, but otherwise stable and his hoarseness was not noted in the PACU. The current plan is for a swallowing study as per Dr. Jim's instructions. He will then further evaluate the patient once that has been completed.
--- NOTE | 2018-04-20 12:31 | DIAGNOSTIC IMAGING REPORT ---
VIDEO SWALLOW STUDY CLINICAL HISTORY: Aspiration. COMPARISON STUDY: No priors. FLUOROSCOPY TIME: 2.1 minutes. FINDINGS: Fluoroscopic guidance was provided to the Department of Speech Pathology in performing a video swallow study. The patient consumed barium-impregnated pudding, cracker with paste, nectar thick liquid, and thin barium while the swallowing mechanism was observed in real-time. No penetration or aspiration was seen with any of the sampled textures. Mild esophageal dysmotility and gastroesophageal reflux were observed. IMPRESSION: 1. No penetration or aspiration was identified with any of the sampled textures. 2. Esophageal dysmotility and gastroesophageal reflux were noted. 3. See dedicated speech pathology report for detailed findings and recommendations. Dictated: 04/20/2018 12:13 PM Transcribed: 04/20/2018 12:30 PM [email or web address] Electronically signed by: Amaury Graves M.D. 04/20/2018 12:43 PM Dictated Date/Time: 04/20/2018 12:13 PM
[2018-04-20] MEDS: MECLIZINE HCL 25 MG TAB PO PRN (14:55)
[2018-04-20] MEDS ORDERED: METOPROLOL SUCC 50MG EXT REL TAB PO ONE (20:30)
--- NOTE | 2018-04-20 20:51 | Progress Note ---
Medicine Progress Note Date & Time of Visit: Apr 20, 2018 . Subjective CC: Follow-up visit for cholecystitis and other problems. HPI: Initially seen in the morning around 1020 and reassessed the afternoon. Hoarseness improved. Still coughing some in the morning when drinking clear liquids, but video swallow performed around noon went well. Postop abdominal pain improved. No nausea or vomiting. Passing flatus, no stool. ROS: General- no fever, no chills Resp- no shortness of breath Cardiac- no chest pain GI- as noted above in HPI - no difficulty voiding . Objective Last 8 Hrs Date Time Temp Pulse Resp B/P (MAP) Pulse Ox O2 Delivery O2 Flow Rate FiO2 04/20/18 20:00 Room Air 04/20/18 19:24 37.6 86 18 137/75 (95) 94 Room Air 04/20/18 17:59 114 128/83 (98) 04/20/18 16:41 112 142/84 04/20/18 15:40 36.8 47 18 142/84 (103) 93 Room Air Physical Exam: General- lying in bed, no distress ENT- hoarseness improved Lungs- clear to auscultation; no respiratory distress Cardiovascular- RRR; no gallop appreciated; no JVD; no pretibial edema Abdomen- + bowel sounds, soft, nontender Extremities- no cyanosis; no calf tenderness Neuro- alert, oriented Skin- warm & dry . Laboratory Results: Last 24 Hours Test 04/19/18 23:38 04/20/18 04:21 04/20/18 05:54 04/20/18 06:36 Bedside Glucose 235 mg/dl 192 mg/dl 215 mg/dl White Blood Count 8.63 K/uL Red Blood Count 4.12 M/uL Hemoglobin 12.5 g/dL Hematocrit 35.7 % Mean Corpuscular Volume 86.7 fL Mean Corpuscular Hemoglobin 30.3 pg Mean Corpuscular Hemoglobin Concent 35.0 g/dl RDW Standard Deviation 43.3 fL RDW Coefficient of Variation 13.6 % Platelet Count 181 K/uL Mean Platelet Volume 9.9 fL Sodium Level 137 mmol/L Potassium Level 4.2 mmol/L Chloride Level 103 mmol/L Carbon Dioxide Level 27 mmol/L Anion Gap 6.0 mmol/L Blood Urea Nitrogen 15 mg/dl Creatinine 0.80 mg/dl Est Creatinine Clear Calc Drug Dose 159.6 ml/min Estimated GFR () 123.3 Estimated GFR (Non- 106.4 BUN/Creatinine Ratio 18.6 Random Glucose 195 mg/dl Calcium Level 7.7 mg/dl Magnesium Level 2.6 mg/dl Test 04/20/18 11:50 04/20/18 16:30 04/20/18 20:18 Bedside Glucose 181 mg/dl 182 mg/dl 245 mg/dl Assessment & Plan CHOLECYSTITIS Presented with right upper quadrant pain. Gallbladder ultrasound demonstrated cholelithiasis without ultrasound criteria of cholecystitis. White count was initially 7310 and hernandez as high as 13,710 the morning of 04/18.. Laparoscopic cholecystectomy performed by Dr. Lilly on 04/18/18. Found to have gangrenous gallbladder. POD # 2. Continue piperacillin/tazobactam. Advance diet as tolerated. SEPSIS Met criteria for sepsis morning of 04/18/18 when white count hernandez to 13,000 in association with tachycardia. Source of sepsis was cholecystitis. Blood cultures were obtained and patient was started on broad-spectrum antibiotic coverage with piperacillin/tazobactam. Serum lactate was 2.9. Repeat lactate was 1.2. No hypotension. HOARSENESS / SUSPECTED ASPIRATION Symptoms developed postoperatively after general anesthesia with endotracheal tube. Discussed with Anesthesia. ENT consulted. Received dexamethasone 10 mg IV 1 with improvement. No evidence of aspiration on video swallow. Outpatient follow-up with ENT. CORONARY ARTERY DISEASE History of ischemic heart disease, status post prior myocardial infarction . Cardiac catheterization on 04/09/18 demonstrated chronic RCA occlusion with collateral filling, tortuous LAD with 50% narrowing, 70% branch vessel stenosis of posterior descending artery . Serial troponins negative. Symptoms at time of admission attributed to cholecystitis. Seen in consultation by Cardiology. Echocardiogram demonstrated segmental wall motion abnormalities, overall LVEF 50 -55%. Received IV metoprolol while NPO; transition back to oral formulation. HISTORY OF PAROXYSMAL ATRIAL FIBRILLATION Normal sinus rhythm at time of admission. Continue metoprolol, diltiazem, apixaban. HYPERTENSION/HYPERTENSIVE URGENCY Blood pressures day of admission as high as 196 systolic. Continue metoprolol, diltiazem, losartan. DIABETES MELLITUS TYPE 2 Hemoglobin A1c 8.9 on 04/05/18. Random blood sugar at time of admission was 309. Pharmacy consulted for glycemic management. Receiving Lantus/NovoLog per protocol. Fasting blood sugar this morning 215. DYSLIPIDEMIA Resume atorvastatin when able to take oral meds patients. OBESITY Weight 127 kg, BMI 36.9. AHA / diabetic when diet resumed. DIABETIC NEUROPATHY Resume pregabalin. DEPRESSION Resume sertraline. VTE PROPHYLAXIS On apixaban for paroxysmal atrial fibrillation. Apixaban held for surgery. SCD's utilized preoperatively. Started on SQ enoxaparin postoperatively. Resume apixaban when able. DISPOSITION Expected discharge to home. Medical follow-up with Dr. Colmenares. . Current Inpatient Medications: Current Inpatient Medications Medications (Trade) Dose Ordered Sig/Jackie Route Start Time Stop Time Status Last Admin Dose Admin Glucose (Glucose Chew Tab) 4-8 Tablets 4 Tabl... UD PRN PO 04/16/18 18:30 05/16/18 18:29 Miscellaneous Information (Consult Glycemic Management Pharmacy) 1 ea UD PRN N/A 04/16/18 19:29 05/16/18 19:28 Ondansetron HCl (Zofran Inj) 4 mg Q6H PRN IV 04/16/18 18:45 05/16/18 18:44 04/19/18 21:50 4 MG Nitroglycerin (Nitrostat Tab) 0.4 mg UD PRN SL 04/16/18 18:45 05/16/18 18:44 Glucose (Glucose 40% Gel) 15-30 GRAMS 15 GRAMS... UD PRN PO 04/16/18 19:00 05/16/18 18:59 Glucose (Glucose Chew Tab) 4-8 Tablets 4 Tabl... UD PRN PO 04/16/18 19:00 05/16/18 18:59 Dextrose (Dextrose 50% 50ML Syringe) 25-50ML 25ML FOR ... UD PRN IV 04/16/18 19:00 05/16/18 18:59 04/19/18 03:52 25 ML Glucagon (Glucagon Inj) 1 mg UD PRN SQ 04/16/18 19:00 05/16/18 18:59 Carbohydrates (Carbohydrates For Hypoglycemia) 15-30 GRAMS 15 grams if BSG 54-69... UD PRN PO 04/16/18 19:00 05/16/18 18:59 Miscellaneous (Iv Fluids Completed) 1 ea PRN PRN N/A 04/16/18 21:15 04/16/19 21:14 Ioversol (Optiray 320) 125 ml UD PRN IV 04/17/18 16:45 04/21/18 16:44 Hydromorphone HCl (Dilaudid Inj) 1 mg Q3HWA PRN IV 04/17/18 23:00 04/30/18 21:44 04/20/18 17:53 1 MG Piperacillin Sod/ Tazobactam Sod 3.375 gm/Dextrose 115 ml @ 200 mls/hr Q8H IV 04/18/18 14:00 04/28/18 13:59 04/20/18 14:09 200 MLS/HR Miscellaneous Information (Consult) 1 ea UD PRN N/A 04/18/18 07:15 05/18/18 07:14 Enoxaparin Sodium (Lovenox Inj) 40 mg QAM SQ 04/19/18 09:00 05/19/18 08:59 04/20/18 09:37 40 MG Phenol (Chloraseptic 1.4% [place]) 1 sprays PRN PRN MT 04/18/18 18:00 05/18/18 17:59 Diltiazem HCl (Cardizem Cd Cap) 240 mg QAM PO 04/20/18 09:00 05/20/18 08:59 04/20/18 09:37 240 MG Insulin Glargine (Lantus Solostar Pen) SEE PROTOCOL Q12 SC 04/19/18 21:00 05/19/18 20:59 04/20/18 09:39 25 UNITS Al Hydrox/Mg Hydrox/Simethicone (Maalox Max Susp) 30 ml Q6H PRN PO 04/19/18 23:45 05/19/18 23:44 Insulin Aspart (novoLOG ASPART) SLIDING SCALE ACHS SC 04/20/18 16:15 05/20/18 16:14 04/20/18 18:52 7 UNITS Meclizine HCl (Antivert Tab) 25 mg Q8H PRN PO 04/20/18 14:15 05/20/18 14:14 04/20/18 14:55 25 MG Clotrimazole (Lotrimin 1% [place]) 1 appln TID EXT 04/20/18 21:00 05/20/18 20:59 Metoprolol Succinate (Toprol Xl Tab) 100 mg QAM PO 04/21/18 09:00 05/21/18 08:59 Losartan Potassium (coZAAR TAB) 50 mg QAM PO 04/21/18 09:00 05/21/18 08:59 Pregabalin (Lyrica Cap) 75 mg TID PO 04/20/18 21:00 05/20/18 20:59
[2018-04-20] MEDS: CLOTRIMAZOLE 1% CR 15 GM TUBE EXT SCH (21:00)
[2018-04-20] MEDS: PREGABALIN 75 MG CAP PO SCH (22:14)
[2018-04-21 03:56] VITALS: BP 167/92; PULSE 70; TEMP 36.8; O2SAT 91
[2018-04-21] MEDS: HYDROmorphone INJ 1 MG/ML SYR IV PRN (04:58)
[2018-04-21] MEDS: PIPERACILL/TAZOBAC IV 3.375 GM in DEXTROSE 5% 100ML 100 ML IV SCH ×3 (06:28→22:07)
[2018-04-21 07:12] LABS: HEMATOCRIT 37.4 % (42-52); HEMOGLOBIN 12.7 g/dL (14.0-18.0); MEAN CELL VOLUME 86.8 fL (80-100); MEAN CORPUSCULAR HEMOGLOBIN 29.5 pg (25-34); MEAN PLATELET VOLUME 9.8 fL (7.4-10.4); PLATELET COUNT 189 K/uL (130-400); RED CELL DISTRIBUTION WIDTH CV 13.6 % (11.5-14.5); RED CELL DISTRIBUTION WIDTH SD 43.3 fL (36.4-46.3); WHITE BLOOD COUNT 6.34 K/uL (4.8-10.8)
[2018-04-21 07:46] LABS: CALCIUM 7.8 mg/dl (8.5-10.1); CREATININE 0.79 mg/dl (0.60-1.40); POTASSIUM 3.8 mmol/L (3.5-5.1)
[2018-04-21] MEDS: DILTIAZEM HCL 240 MG CAPCR PO SCH (07:49)
[2018-04-21] MEDS: CLOTRIMAZOLE 1% CR 15 GM TUBE EXT SCH ×3 (07:49→20:05)
[2018-04-21] MEDS: LOSARTAN POTASSIUM 50 MG TAB PO SCH (07:50)
[2018-04-21] MEDS: METOPROLOL SUCC 50MG EXT REL TAB PO SCH (07:50)
[2018-04-21] MEDS: ENOXAPARIN 40 MG/0.4 ML SYR SQ SCH (07:51)
[2018-04-21] MEDS: PREGABALIN 75 MG CAP PO SCH ×3 (07:52→20:07)
[2018-04-21] MEDS: INSULIN GLARGINE SOLOSTAR 100 UNITS/ML 3 ML PEN SC SCH (07:54)
[2018-04-21] MEDS: INSULIN ASPART 100 UNITS/ML 3 ML PEN SC SCH ×4 (07:55→20:09)
[2018-04-21 08:00] VITALS: BP_SYST 122; BP_SYST 164; BP_DIAS 79; BP_DIAS 95; PULSE 75; TEMP 37; O2SAT 98
[2018-04-21] MEDS ORDERED: TRAMADOL HCL 50 MG TAB PO PRN (09:15)
[2018-04-21] MEDS ORDERED: SERTRALINE HCL 50 MG TAB PO ONE (09:30)
--- NOTE | 2018-04-21 09:30 | Progress Note ---
Medicine Progress Note Date & Time of Visit: Apr 21, 2018 at 09:20 . Subjective CC: Follow-up visit for cholecystitis and other problems. HPI: Doing well. Postop abdominal pain improved. No nausea or vomiting. Passing flatus, no stool. Hoarseness improving. No further signs of aspiration. ROS: General- no fever, no chills Resp- rare cough; no shortness of breath Cardiac- no chest pain GI- as noted above in HPI - no difficulty voiding . Objective Last 8 Hrs Date Time Temp Pulse Resp B/P (MAP) Pulse Ox O2 Delivery O2 Flow Rate FiO2 04/21/18 08:00 37.0 75 18 164/95 (118) 98 04/21/18 08:00 Room Air 04/21/18 03:56 36.8 70 18 167/92 (117) 91 Room Air Physical Exam: General- lying in bed, no distress ENT- hoarseness improved Lungs- clear to auscultation; no respiratory distress Cardiovascular- RRR with occasional ectopy; no gallop appreciated; no JVD; no pretibial edema Abdomen- + bowel sounds, soft, nontender; RUQ drain Extremities- no cyanosis; no calf tenderness Neuro- alert, oriented Skin- warm & dry . Laboratory Results: Last 24 Hours Test 04/20/18 11:50 04/20/18 16:30 04/20/18 20:18 04/21/18 06:46 Bedside Glucose 181 mg/dl 182 mg/dl 245 mg/dl White Blood Count 6.34 K/uL Red Blood Count 4.31 M/uL Hemoglobin 12.7 g/dL Hematocrit 37.4 % Mean Corpuscular Volume 86.8 fL Mean Corpuscular Hemoglobin 29.5 pg Mean Corpuscular Hemoglobin Concent 34.0 g/dl RDW Standard Deviation 43.3 fL RDW Coefficient of Variation 13.6 % Platelet Count 189 K/uL Mean Platelet Volume 9.8 fL Sodium Level 134 mmol/L Potassium Level 3.8 mmol/L Chloride Level 103 mmol/L Carbon Dioxide Level 26 mmol/L Anion Gap 5.0 mmol/L Blood Urea Nitrogen 11 mg/dl Creatinine 0.79 mg/dl Est Creatinine Clear Calc Drug Dose 162.9 ml/min Estimated GFR () 123.9 Estimated GFR (Non- 106.9 BUN/Creatinine Ratio 14.0 Random Glucose 124 mg/dl Calcium Level 7.8 mg/dl Test 04/21/18 07:40 Bedside Glucose 140 mg/dl Assessment & Plan CHOLECYSTITIS Presented with right upper quadrant pain. Gallbladder ultrasound demonstrated cholelithiasis without ultrasound criteria of cholecystitis. White count was initially 7310 and hernandez as high as 13,710 the morning of 04/18.. Laparoscopic cholecystectomy performed by Dr. Lilly on 04/18/18. Found to have gangrenous gallbladder. POD # 3. Continue piperacillin/tazobactam. SEPSIS Met criteria for sepsis morning of 04/18/18 when white count hernandez to 13,000 in association with tachycardia. Source of sepsis was cholecystitis. Blood cultures were obtained and patient was started on broad-spectrum antibiotic coverage with piperacillin/tazobactam. Serum lactate was 2.9. Repeat lactate was 1.2. No hypotension. HOARSENESS / SUSPECTED ASPIRATION Symptoms developed postoperatively after general anesthesia with endotracheal tube. Discussed with Anesthesia. ENT consulted. Received dexamethasone 10 mg IV 1 with improvement. No aspiration seen on video swallow 04/20. CORONARY ARTERY DISEASE History of ischemic heart disease, status post prior myocardial infarction . Cardiac catheterization on 04/09/18 demonstrated chronic RCA occlusion with collateral filling, tortuous LAD with 50% narrowing, 70% branch vessel stenosis of posterior descending artery . Serial troponins negative. Symptoms at time of admission attributed to cholecystitis. Seen in consultation by Cardiology. Echocardiogram demonstrated segmental wall motion abnormalities, overall LVEF 50 -55%. Received IV metoprolol while NPO. Resume aspirin. Continue metoprolol. HISTORY OF PAROXYSMAL ATRIAL FIBRILLATION Normal sinus rhythm at time of admission. Continue metoprolol, diltiazem. Resume apixaban. HYPERTENSION/HYPERTENSIVE URGENCY Blood pressures day of admission as high as 196 systolic. Cardiovascular medications adjusted and BP's improved. Continue metoprolol, diltiazem, losartan. DIABETES MELLITUS TYPE 2 Hemoglobin A1c 8.9 on 04/05/18. Random blood sugar at time of admission was 309. Pharmacy consulted for glycemic management. [corrected 04/20/18 @ 21:07 KEON] Receiving Lantus/NovoLog per protocol. Fasting blood sugar this morning 140. DYSLIPIDEMIA Resume atorvastatin. OBESITY Weight 127 kg, BMI 36.9. AHA / diabetic when diet resumed. DIABETIC NEUROPATHY Continue pregabalin. DEPRESSION Continue sertraline. VTE PROPHYLAXIS On apixaban for paroxysmal atrial fibrillation. Apixaban held for surgery. SCD's utilized preoperatively. Started on SQ enoxaparin postoperatively. Resume apixaban. DISPOSITION Expected discharge to home. Medical follow-up with Dr. Colmenares. Outpatient ENT follow-up with Dr. Jim. . Current Inpatient Medications: Current Inpatient Medications Medications (Trade) Dose Ordered Sig/Jackie Route Start Time Stop Time Status Last Admin Dose Admin Glucose (Glucose Chew Tab) 4-8 Tablets 4 Tabl... UD PRN PO 04/16/18 18:30 05/16/18 18:29 Miscellaneous Information (Consult Glycemic Management Pharmacy) 1 ea UD PRN N/A 04/16/18 19:29 05/16/18 19:28 Ondansetron HCl (Zofran Inj) 4 mg Q6H PRN IV 04/16/18 18:45 05/16/18 18:44 04/19/18 21:50 4 MG Nitroglycerin (Nitrostat Tab) 0.4 mg UD PRN SL 04/16/18 18:45 05/16/18 18:44 Glucose (Glucose 40% Gel) 15-30 GRAMS 15 GRAMS... UD PRN PO 04/16/18 19:00 05/16/18 18:59 Glucose (Glucose Chew Tab) 4-8 Tablets 4 Tabl... UD PRN PO 04/16/18 19:00 05/16/18 18:59 Dextrose (Dextrose 50% 50ML Syringe) 25-50ML 25ML FOR ... UD PRN IV 04/16/18 19:00 05/16/18 18:59 04/19/18 03:52 25 ML Glucagon (Glucagon Inj) 1 mg UD PRN SQ 04/16/18 19:00 05/16/18 18:59 Carbohydrates (Carbohydrates For Hypoglycemia) 15-30 GRAMS 15 grams if BSG 54-69... UD PRN PO 04/16/18 19:00 05/16/18 18:59 Miscellaneous (Iv Fluids Completed) 1 ea PRN PRN N/A 04/16/18 21:15 04/16/19 21:14 Ioversol (Optiray 320) 125 ml UD PRN IV 04/17/18 16:45 04/21/18 16:44 Hydromorphone HCl (Dilaudid Inj) 1 mg Q3HWA PRN IV 04/17/18 23:00 04/30/18 21:44 04/21/18 04:58 1 MG Piperacillin Sod/ Tazobactam Sod 3.375 gm/Dextrose 115 ml @ 200 mls/hr Q8H IV 04/18/18 14:00 04/28/18 13:59 04/21/18 06:28 200 MLS/HR Miscellaneous Information (Consult) 1 ea UD PRN N/A 04/18/18 07:15 05/18/18 07:14 Enoxaparin Sodium (Lovenox Inj) 40 mg QAM SQ 04/19/18 09:00 05/19/18 08:59 04/21/18 07:51 40 MG Phenol (Chloraseptic 1.4% [place]) 1 sprays PRN PRN MT 04/18/18 18:00 05/18/18 17:59 Diltiazem HCl (Cardizem Cd Cap) 240 mg QAM PO 04/20/18 09:00 05/20/18 08:59 04/21/18 07:49 240 MG Insulin Glargine (Lantus Solostar Pen) SEE PROTOCOL Q12 SC 04/19/18 21:00 05/19/18 20:59 04/21/18 07:54 20 UNITS Al Hydrox/Mg Hydrox/Simethicone (Maalox Max Susp) 30 ml Q6H PRN PO 04/19/18 23:45 05/19/18 23:44 04/21/18 04:58 30 ML Insulin Aspart (novoLOG ASPART) SLIDING SCALE ACHS SC 04/20/18 16:15 05/20/18 16:14 04/21/18 07:55 10 UNITS Meclizine HCl (Antivert Tab) 25 mg Q8H PRN PO 04/20/18 14:15 05/20/18 14:14 04/20/18 14:55 25 MG Clotrimazole (Lotrimin 1% [facility]) 1 appln TID EXT 04/20/18 21:00 05/20/18 20:59 Metoprolol Succinate (Toprol Xl Tab) 100 mg QAM PO 04/21/18 09:00 05/21/18 08:59 04/21/18 07:50 100 MG Losartan Potassium (coZAAR TAB) 50 mg QAM PO 04/21/18 09:00 05/21/18 08:59 04/21/18 07:50 50 MG Pregabalin (Lyrica Cap) 75 mg TID PO 04/20/18 21:00 05/20/18 20:59 04/21/18 07:52 75 MG Tramadol HCl (Ultram Tab) 50 mg Q4H PRN PO 04/21/18 09:15 05/21/18 09:14 Docusate Sodium (coLACE CAP) 100 mg BID PO 04/21/18 09:30 05/21/18 09:29
--- NOTE | 2018-04-21 09:49 | Surgery Progress Note ---
Surgery Progress Note Date of Service Apr 21, 2018. Subjective Post OP Day: 3 (s/p laparoscopic cholecystectomy) + feeling well post-operative pain at incisions , 2/10 right now, controlled hoarseness improving tolerating regular diet No nausea or vomiting ambulating and urinating without difficulty Objective Vital Signs: Date Time Temp Pulse Resp B/P (MAP) Pulse Ox O2 Delivery O2 Flow Rate FiO2 04/21/18 08:00 37.0 75 18 164/95 (118) 98 04/21/18 08:00 Room Air 04/21/18 03:56 36.8 70 18 167/92 (117) 91 Room Air 04/20/18 23:23 36.8 61 19 144/94 (111) 95 Room Air 04/20/18 20:00 Room Air 04/20/18 19:24 37.6 86 18 137/75 (95) 94 Room Air 04/20/18 17:59 114 128/83 (98) 04/20/18 16:41 112 142/84 04/20/18 15:40 36.8 47 18 142/84 (103) 93 Room Air 04/20/18 12:22 96 04/20/18 12:20 152/77 04/20/18 11:42 36.6 48 18 152/77 (102) 92 Room Air Physical Exam: MARYANN drainage (serosanguineous) General Appearance: WD/WN, no apparent distress, + obese Head: normocephalic, atraumatic Neck: trachea midline Respiratory/Chest: no respiratory distress, no accessory muscle use Abdomen: non distended, soft, no organomegaly, no pulsatile mass, + tenderness (at incision sites, minimal, appropriate post op) Incision(s): clean, dry, intact, no erythema, no drainage Laboratory Results: Results Past 24 Hours Test 04/20/18 11:50 04/20/18 16:30 04/20/18 20:18 04/21/18 06:46 Range/Units Bedside Glucose 181 182 245 70-99 mg/dl White Blood Count 6.34 4.8-10.8 K/uL Red Blood Count 4.31 4.7-6.1 M/uL Hemoglobin 12.7 14.0-18.0 g/dL Hematocrit 37.4 42-52 % Mean Corpuscular Volume 86.8 80-100 fL Mean Corpuscular Hemoglobin 29.5 25-34 pg Mean Corpuscular Hemoglobin Concent 34.0 32-36 g/dl RDW Standard Deviation 43.3 36.4-46.3 fL RDW Coefficient of Variation 13.6 11.5-14.5 % Platelet Count 189 130-400 K/uL Mean Platelet Volume 9.8 7.4-10.4 fL Sodium Level 134 136-145 mmol/L Potassium Level 3.8 3.5-5.1 mmol/L Chloride Level 103 98-107 mmol/L Carbon Dioxide Level 26 21-32 mmol/L Anion Gap 5.0 3-11 mmol/L Blood Urea Nitrogen 11 7-18 mg/dl Creatinine 0.79 0.60-1.40 mg/dl Est Creatinine Clear Calc Drug Dose 162.9 ml/min Estimated GFR () 123.9 Estimated GFR (Non- 106.9 BUN/Creatinine Ratio 14.0 10-20 Random Glucose 124 70-99 mg/dl Calcium Level 7.8 8.5-10.1 mg/dl Test 04/21/18 07:40 Range/Units Bedside Glucose 140 70-99 mg/dl Assessment & Plan POD # 3 s/p laparoscopic cholecystectomy -vitals stable, afebrile - post op pain controlled, minimal - +flatus no bowel movement - Hoarseness improving, video swallow 04/20 normal, tolerating diet Plan: Start PO Tramadol as needed for pain, IV only for breakthrough Continue DM type 2 heart healthy diet Continue IV antibiotics, may transition to oral Augmentin and Flagyl and d/c home with 4-5 days Continue maryann drain, remove prior to discharge if no bilious output D/c IV fluids may resume anticoagulation, continue SCDs encourage OOB to chair and ambulation Dr. Connolly has seen and examined patient, agrees with above
[2018-04-21] MEDS: DOCUSATE SODIUM 100 MG CAP PO SCH ×2 (10:09→20:05)
--- NOTE | 2018-04-21 10:09 | Consultant Recommendations ---
Undercover Operator Recommendations Date of Service Apr 21, 2018. Undercover Operator Recommendations No heavy lifting over 10 pounds for 3-4 weeks No strenuous activity until cleared by surgeon No submerging incisions underwater for 2 weeks (no bathing, swimming, or hot tubs) No driving while taking narcotic pain medication or until you are pain free You may shower, leave steri strips on incisions for total of 7 days from surgery and then remove. They may fall off on their own that is okay. Keep area where drain was removed covered with dressing until healed, this site will close from the inside out and may drain when up and moving around. Walking and light activity is encouraged to prevent blood clots from forming. You may take Tramadol as needed for moderate to severe pain. Take as directed. This medication may cause drowsiness and constipation. To combat constipation: -Drink plenty of water daily, avoid foods that constipate, take OTC stool softener such as Colace daily or twice a day while taking Tramadol - If above measures do not work and you are still constipated, you may take milk of magnesia or Miralax Avoid fatty/greasy foods for first 1-2 weeks and then slowly introduce foods in your diet as tolerated You will be given prescription for antibiotics given amount of inflammation of your gallbladder, take entire course as directed. Follow-up in surgical office in 1-2 weeks, please call office at [phone] to make an appointment.
[2018-04-21] MEDS: MECLIZINE HCL 25 MG TAB PO PRN (10:36)
--- NOTE | 2018-04-21 10:57 | Cardiology Follow-Up ---
Subjective General Date of Service: Apr 21, 2018. Chief Complaint: acute dafne; HTN; CAD Pt evaluation today including: conversation w/ patient, physical exam, chart review, lab review, review of studies, review of inpatient medication list History of Present Illness The patient is a 47 year old male Allergies Coded Allergies: Oxycodone (Unverified Adverse Reaction, Intermediate, HEADACHE, 04/16/18) Social History Smoking Status: Former Smoker (quit 01/23/09 with 100 pack year hx) Hx Tobacco Use In Past Year?: No Hx Alcohol Use - Type And Amou: No Hx Substance Use - Type And Am: No Problem List Medical Problems: (1) Hyperglycemia Status: Acute (2) Tachycardia Status: Acute Review of Systems Respiratory: No cough, No sputum, No wheezing, No shortness of breath, No dyspnea at rest, No hemoptysis Cardiac: No chest pain, No orthopnea, No PND, No edema, No palpitations Physical Exam Vital Signs Last Vital Signs Documentation Date Time Temp Pulse Resp B/P (MAP) Pulse Ox O2 Delivery O2 Flow Rate FiO2 04/21/18 08:00 37.0 75 18 164/95 (118) 98 04/21/18 08:00 Room Air 04/20/18 07:35 10.0 Physical Exam Constitutional: General Apperance: heathly-appearing, overweight Level of Distress: NAD, acutely ill Psychiatric: Mental Status: active & alert Orientation: to time, to place, to person Eyes: Pupils: PERRLA Neck: supple Lungs: Respiratory effort: no dyspnea Auscultation: breath sounds normal Cardiovascular: Heart Auscultation: RRR, no murmurs, no rubs Extremities: no edema Assessment and Plan Assessment and Plan 1. Acute dafne s/p POD 3 lap dafne, SHAQUILLE drain in place 2. History of PAF, currently NSR, continue IV metoprolol for now. 3. Hypertension 4. CAD - no anginal symptoms. Resume PO meds when able. PLAN: Oral home medications resumed this AM including metoprolol succinate 100 mg daily, diltiazem 240 mg daily, ASA 81 mg, Atorvastatin 80 mg, Apixaban 5 mg BID. Was previously on losartan 100 mg (50 mg resumed this AM). HCTZ remains on hold Stable cardiac signs/symptoms. SHAQUILLE drain remains in place. Once stable from surgical standpoint, ok for discharge. Case discussed with Dr. Shaw Patient was seen and personally examined. Assessment and plan as outlined above. Patient is tolerating oral intake and has resumed oral medications, no arrhythmias and blood pressure stable. We will sign off contact with any questions Angel Shaw MD Laboratory Results Last 24 Hours Test 04/20/18 11:50 04/20/18 16:30 04/20/18 20:18 04/21/18 06:46 Bedside Glucose 181 mg/dl 182 mg/dl 245 mg/dl White Blood Count 6.34 K/uL Red Blood Count 4.31 M/uL Hemoglobin 12.7 g/dL Hematocrit 37.4 % Mean Corpuscular Volume 86.8 fL Mean Corpuscular Hemoglobin 29.5 pg Mean Corpuscular Hemoglobin Concent 34.0 g/dl RDW Standard Deviation 43.3 fL RDW Coefficient of Variation 13.6 % Platelet Count 189 K/uL Mean Platelet Volume 9.8 fL Sodium Level 134 mmol/L Potassium Level 3.8 mmol/L Chloride Level 103 mmol/L Carbon Dioxide Level 26 mmol/L Anion Gap 5.0 mmol/L Blood Urea Nitrogen 11 mg/dl Creatinine 0.79 mg/dl Est Creatinine Clear Calc Drug Dose 162.9 ml/min Estimated GFR () 123.9 Estimated GFR (Non- 106.9 BUN/Creatinine Ratio 14.0 Random Glucose 124 mg/dl Calcium Level 7.8 mg/dl Test 04/21/18 07:40 Bedside Glucose 140 mg/dl
[2018-04-21 12:19] VITALS: BP 134/72; PULSE 66; TEMP 36.5; O2SAT 98
--- NOTE | 2018-04-21 13:52 | Pharmacy Progress Note ---
Pharmacy Glycemic Short Note 2 Date of Service Apr 21, 2018. OUTPATIENT ANTIDIABETIC REGIMEN: * Metformin 1 gm BID * Glipizide 20 mg BID * Tradjenta 5 mg daily * A1c = 8.9 % 04/05/18 Item Value Date Time Bedside Glucose 192 mg/dl H 04/20/18 0421 Bedside Glucose 215 mg/dl H 04/20/18 0554 Bedside Glucose 181 mg/dl H 04/20/18 1150 Bedside Glucose 182 mg/dl H 04/20/18 1630 Bedside Glucose 140 mg/dl H 04/21/18 0740 Random Glucose 124 mg/dl H 04/21/18 0646 Bedside Glucose 245 mg/dl H 04/20/182017 ASSESSMENT: Please see previous notes for background information, in short: * Mr Haney is POD #3 s/p cholecystectomy. He was ordered a diet today. * He received a total of 86 units of insulin yesterday (Dexamethasone IV on board for part of the day). * 50 units of basal and 36 units of bolus * I decreased Lantus orders and loosened the Novolog correctional/prandial insulin yesterday afternoon since the effects of dexamethasone had subsided. Improvement in BSGs noted so far today. * Changes needed to insulin regimen: * Fasting BSG of 140 mg/dL is near goal. Continue current Lantus dose of 20 units BID. * Post prandial BSGs remain elevated, therefore I will tighten Novolog CF/CR. PLAN FOR INPATIENT GLYCEMIC CONTROL: * Continue to hold outpatient oral diabetes medications * Basal insulin * Lantus 20 units SQ BID * Bolus insulin - tighten * NovoLog per scale ACHS or Q6hrs while NPO * Goal Range: Low 110 mg/dL - High 140 mg/dL * Correction Factor: 15 mg/dL/unit * Nutritional / Prandial insulin per carb ratio of 1 unit per 5 grams CHO consumed PLAN FOR DISCHARGE: * A1c indicates suboptimal control on 3 oral agents. If patient did not recently initiate one of these, may need to consider starting once daily basal insulin - would recommend Lantus (or Basaglar) 25 units daily to start
[2018-04-21 15:08] VITALS: BP 165/82; PULSE 72; TEMP 36.5; O2SAT 97
[2018-04-21 19:24] VITALS: BP 165/92; PULSE 65; TEMP 36.9; O2SAT 95
[2018-04-21] MEDS: APIXABAN 5 MG TAB PO SCH (20:06)
[2018-04-21] MEDS ORDERED: INSULIN GLARGINE SOLOSTAR 100 UNITS/ML 3 ML PEN SC SCH (21:00)
[2018-04-21 23:26] VITALS: BP 188/125; PULSE 84; TEMP 36.7; O2SAT 97
[2018-04-21] MEDS ORDERED: LOSARTAN POTASSIUM 50 MG TAB PO ONE (23:44)
[2018-04-22] VITALS (8 sets, daily range): BP systolic 110–184; BP diastolic 76–116; PULSE 75–150; TEMP 36.4–36.7; O2SAT 92–98
[2018-04-22] MEDS: ONDANSETRON INJ 2 MG/ML 2 ML VIAL IV PRN (05:14)
[2018-04-22] MEDS: PIPERACILL/TAZOBAC IV 3.375 GM in DEXTROSE 5% 100ML 100 ML IV SCH (05:15)
[2018-04-22] MEDS ORDERED: METOPROLOL TARTRATE 1 MG/ML VIAL IV STA ×4 (06:06→11:36)
[2018-04-22] MEDS ORDERED: METOPROLOL TARTRATE 1 MG/ML VIAL ONE (06:09)
[2018-04-22] MEDS ORDERED: PROCHLORPERAZINE INJ 5 MG in SYRINGE 4 ML IV PRN (06:15)
[2018-04-22] MEDS ORDERED: DILTIAZEM HCL 240 MG CAPCR PO ONE ×2 (06:20→06:57)
[2018-04-22] MEDS ORDERED: DILTIAZEM HCL 5 MG/ML 5 ML VIAL IV STA (06:28)
[2018-04-22] MEDS ORDERED: POTASSIUM CHLORIDE 10 MEQ TABCR PO STA (06:28)
[2018-04-22] MEDS ORDERED: DILTIAZEM HCL 5 MG/ML 5 ML VIAL ONE (06:31)
[2018-04-22] MEDS ORDERED: INSULIN ASPART 100 UNITS/ML 3 ML PEN SC ONE (06:43)
[2018-04-22] MEDS ORDERED: INSULIN GLARGINE SOLOSTAR 100 UNITS/ML 3 ML PEN SC ONE (06:43)
[2018-04-22] MEDS ORDERED: LORAZEPAM 2 MG/ML 1 ML VIAL IV PRN (06:45)
[2018-04-22 06:49] LABS: BASO % 0.3 %; BASO ABS # 0.02 K/uL (0-0.2); EOS % 1.2 %; EOS ABS # 0.09 K/uL (0-0.5); HEMATOCRIT 42.6 % (42-52); IG# 0.02 K/uL (0.00-0.02); LYMPH % 15.5 %; LYMPH ABS # 1.12 K/uL (1.2-3.4); MEAN CELL VOLUME 84.5 fL (80-100); MEAN CORPUSCULAR HEMOGLOBIN 29.8 pg (25-34); MEAN CORPUSCULAR HGB CONC 35.2 g/dl (32-36); MEAN PLATELET VOLUME 9.7 fL (7.4-10.4); MONO % 10.2 %; MONO ABS # 0.74 K/uL (0.11-0.59); NEUT % 72.5 %; NEUT ABS # 5.25 K/uL (1.4-6.5); PLATELET COUNT 244 K/uL (130-400); RED CELL DISTRIBUTION WIDTH CV 13.4 % (11.5-14.5); RED CELL DISTRIBUTION WIDTH SD 41.1 fL (36.4-46.3); WHITE BLOOD COUNT 7.24 K/uL (4.8-10.8)
[2018-04-22] MEDS ORDERED: LORAZEPAM 2 MG/ML 1 ML VIAL ONE (06:50)
[2018-04-22] MEDS ORDERED: LORAZEPAM INJ 0.5 MG in SYRINGE 0.75 ML IV PRN (07:15)
[2018-04-22 07:19] LABS: ALBUMIN 3.1 gm/dl (3.4-5.0); CALCIUM 8.9 mg/dl (8.5-10.1); CREATININE 1.05 mg/dl (0.60-1.40); POTASSIUM 4.1 mmol/L (3.5-5.1); TOTAL PROTEIN 7.8 gm/dl (6.4-8.2)
[2018-04-22] MEDS: DOCUSATE SODIUM 100 MG CAP PO SCH (07:27)
[2018-04-22] MEDS: CLOTRIMAZOLE 1% CR 15 GM TUBE EXT SCH ×2 (07:27→12:47)
[2018-04-22] MEDS ORDERED: INSULIN GLARGINE SOLOSTAR 100 UNITS/ML 3 ML PEN SC SCH (07:30)
[2018-04-22] MEDS ORDERED: SODIUM CHLORIDE 0.9% 1000ML 1,000 ML IV ONE (07:30)
[2018-04-22] MEDS: APIXABAN 5 MG TAB PO SCH (07:31)
[2018-04-22] MEDS: LOSARTAN POTASSIUM 50 MG TAB PO SCH (07:32)
[2018-04-22] MEDS: METOPROLOL SUCC 50MG EXT REL TAB PO SCH (07:32)
[2018-04-22] MEDS: MECLIZINE HCL 25 MG TAB PO PRN (07:34)
[2018-04-22] MEDS: PREGABALIN 75 MG CAP PO SCH ×2 (07:49→13:59)
[2018-04-22] MEDS ORDERED: MAGNESIUM SULFATE 1GM / D5W 100 ML IV ONE (08:00)
[2018-04-22] MEDS ORDERED: SERTRALINE HCL 100 MG TAB PO SCH (09:00)
[2018-04-22] MEDS ORDERED: FLECAINIDE ACETATE 100 MG TAB PO ONE (09:15)
--- NOTE | 2018-04-22 10:27 | Pharmacy Progress Note ---
Pharmacy Glycemic Short Note 2 Date of Service Apr 22, 2018. OUTPATIENT ANTIDIABETIC REGIMEN: * Metformin 1 gm BID * Glipizide 20 mg BID * Tradjenta 5 mg daily * A1c = 8.9 % 04/05/18 Item Value Date Time Bedside Glucose 222 mg/dl H 04/22/18 0637 Random Glucose 233 mg/dl H 04/22/18 0631 Bedside Glucose 217 mg/dl H 04/21/182003 Bedside Glucose 179 mg/dl H 04/21/18 1607 Bedside Glucose 193 mg/dl H 04/21/18 1127 ASSESSMENT: Please see previous notes for background information, in short: * Mr Haney is POD #4 s/p cholecystectomy. He was ordered a diet today. * He received a total of 84 units of insulin yesterday, no further effects from dexamethasone from 04/19 * 40 units of basal and 44 units of bolus * Blood sugar elevated at bedtime and this morning despite CF given at bedtime, will increase basal dose at this time. PLAN FOR INPATIENT GLYCEMIC CONTROL: * Continue to hold outpatient oral diabetes medications * Basal insulin - INCREASE * Lantus 25 units SQ BID * Bolus insulin * NovoLog per scale ACHS or Q6hrs while NPO * Goal Range: Low 110 mg/dL - High 140 mg/dL * Correction Factor: 15 mg/dL/unit * Nutritional / Prandial insulin per carb ratio of 1 unit per 5 grams CHO consumed PLAN FOR DISCHARGE: * A1c indicates suboptimal control on 3 oral agents. If patient did not recently initiate one of these, may need to consider starting once daily basal insulin - would recommend Lantus (or Basaglar) 25 units daily to start
--- NOTE | 2018-04-22 10:52 | Surgery Progress Note ---
Surgery Progress Note Date of Service Apr 22, 2018. Subjective Post OP Day: 4 (s/p laparoscopic cholecystectomy) "could be feeling better" Has nausea and vomiting late last night Has not had breakfast yet Passing flatus abdominal pain minimal Per records, patient was hypertensive and went into A-fib overnight. Was given Lopressor and Cardizem overnight. Objective Vital Signs: Date Time Temp Pulse Resp B/P (MAP) Pulse Ox O2 Delivery O2 Flow Rate FiO2 04/22/18 10:10 132 160/100 04/22/18 07:30 Room Air 04/22/18 07:26 142 169/113 04/22/18 06:56 122 161/116 (131) 04/22/18 06:40 36.7 131 20 135/93 (107) 92 Room Air 04/22/18 06:28 146/98 (114) 04/22/18 06:19 160 04/22/18 06:00 150 163/113 (130) 04/22/18 02:48 36.6 75 18 184/107 (132) 97 Room Air 04/21/18 23:26 36.7 84 17 188/125 (146) 97 Room Air 04/21/18 20:00 Room Air 04/21/18 19:24 36.9 65 18 165/92 (116) 95 Room Air 04/21/18 15:08 36.5 72 19 165/82 (109) 97 Room Air 04/21/18 12:19 36.5 66 18 134/72 (92) 98 Physical Exam: SHAQUILLE drainage (serosanguineous) General Appearance: no apparent distress, + obese Head: normocephalic, atraumatic Neck: trachea midline Respiratory/Chest: no respiratory distress, no accessory muscle use Abdomen: non tender, non distended, soft, no organomegaly, no pulsatile mass Incision(s): clean, dry, intact, no erythema, no drainage Laboratory Results: Results Past 24 Hours Test 04/21/18 11:27 04/21/18 16:07 04/21/18 20:04 04/22/18 06:31 Range/Units Bedside Glucose 193 179 217 70-99 mg/dl White Blood Count 7.24 4.8-10.8 K/uL Red Blood Count 5.04 4.7-6.1 M/uL Hemoglobin 15.0 14.0-18.0 g/dL Hematocrit 42.6 42-52 % Mean Corpuscular Volume 84.5 80-100 fL Mean Corpuscular Hemoglobin 29.8 25-34 pg Mean Corpuscular Hemoglobin Concent 35.2 32-36 g/dl Platelet Count 244 130-400 K/uL Mean Platelet Volume 9.7 7.4-10.4 fL Neutrophils (%) (Auto) 72.5 % Lymphocytes (%) (Auto) 15.5 % Monocytes (%) (Auto) 10.2 % Eosinophils (%) (Auto) 1.2 % Basophils (%) (Auto) 0.3 % Neutrophils # (Auto) 5.25 1.4-6.5 K/uL Lymphocytes # (Auto) 1.12 1.2-3.4 K/uL Monocytes # (Auto) 0.74 0.11-0.59 K/uL Eosinophils # (Auto) 0.09 0-0.5 K/uL Basophils # (Auto) 0.02 0-0.2 K/uL RDW Standard Deviation 41.1 36.4-46.3 fL RDW Coefficient of Variation 13.4 11.5-14.5 % Immature Granulocyte % (Auto) 0.3 % Immature Granulocyte # (Auto) 0.02 0.00-0.02 K/uL Sodium Level 132 136-145 mmol/L Potassium Level 4.1 3.5-5.1 mmol/L Chloride Level 97 98-107 mmol/L Carbon Dioxide Level 26 21-32 mmol/L Anion Gap 9.0 3-11 mmol/L Blood Urea Nitrogen 11 7-18 mg/dl Creatinine 1.05 0.60-1.40 mg/dl Est Creatinine Clear Calc Drug Dose 119.0 ml/min Estimated GFR () 97.5 Estimated GFR (Non- 84.1 BUN/Creatinine Ratio 10.5 10-20 Random Glucose 233 70-99 mg/dl Calcium Level 8.9 8.5-10.1 mg/dl Magnesium Level 1.9 1.8-2.4 mg/dl Total Bilirubin 1.1 0.2-1 mg/dl Aspartate Amino Transf (AST/SGOT) 22 15-37 U/L Alanine Aminotransferase (ALT/SGPT) 104 12-78 U/L Alkaline Phosphatase 86 45-117 U/L Total Protein 7.8 6.4-8.2 gm/dl Albumin 3.1 3.4-5.0 gm/dl Globulin 4.7 2.5-4.0 gm/dl Albumin/Globulin Ratio 0.7 0.9-2 Lipase 235 73-393 U/L Test 04/22/18 06:37 Range/Units Bedside Glucose 222 70-99 mg/dl Assessment & Plan POD # 4 s/p laparoscopic cholecystectomy - post op pain controlled, minimal - +flatus no bowel movement - + emesis last evening - SHAQUILLE serosanguineous - no leukocytosis Rapid A-fib and hypertensive overnight - still in afib this am Hoarseness improved, video swallow 04/20 normal, tolerating diet Plan: From surgical standpoint doing well Continue low fat, heart healthy diet Shaquille drain removed Continue pain management as needed Continue Colace BID May transition to oral antibiotics, total of 7-8 day course of ABx (IV and Oral ) for gangrenous gallbladder Dr. Parson to follow tomorrow Chair Inspector And Leveler recommendations in chart for discharge Dr. Connolly has seen patient agrees with above.
[2018-04-22] MEDS ORDERED: TRAM-10 PO (10:59)
[2018-04-22] MEDS: INSULIN ASPART 100 UNITS/ML 3 ML PEN SC SCH ×2 (11:41→17:18)
[2018-04-22] MEDS ORDERED: METOPROLOL SUCC 50MG EXT REL TAB PO STA (13:42)
[2018-04-22] MEDS ORDERED: PIPERACILL/TAZOBAC IV 4.5 GM in D5W 100 ML IV SCH (14:00)
--- NOTE | 2018-04-22 14:03 | PROGRESS NOTE ---
DATE: 04/22/2018 The patient seen and examined. Chart, medications, telemetry reviewed. SUBJECTIVE: The patient lapsed into atrial fibrillation this morning with elevated ventricular response rates, mild breathlessness, but no acute symptoms. Heart rates, though remaining sustained at 140s, 150s despite multiple medications and usual oral medications. The patient was given a single dose of oral flecainide 300 mg and 2 doses of IV metoprolol. Will follow a subsequent spontaneous conversion to sinus rhythm. He is now comfortable but hungry. Notes no chest pain or discomfort. Notes no orthopnea. Notes no worsening peripheral edema. Surgery has removed J-tube drainage. OBJECTIVE: VITAL SIGNS: Heart rate is now 90. Heart rates this morning were 150. Blood pressures runs to 160s to 180 systolic. NECK: Thick. There is no jugular venous distention. LUNGS: Clear. CARDIOVASCULAR: Regular with an irregular rhythm this morning. ABDOMEN: Soft without tenderness. EXTREMITIES: Reveal trace pedal edema only. IMPRESSION: A 47-year-old male with issues as follows, paroxysmal atrial fibrillation with lapse into atrial fibrillation this morning. He spontaneously converted with single dose of oral flecainide. Will plan on increasing beta johanna dosing with Toprol-XL 100 mg a.m., 50 mg p.m. Continue diltiazem and other medications. If atrial fibrillation becomes more recurrent, would consider patient for a sotalol load. He is anxious to be discharged and clinically stable today. EKG will be performed with followup plans with Dr. Amaya. CAITY
[2018-04-22] MEDS ORDERED: ATOR-26 PO (16:59)
[2018-04-22] MEDS ORDERED: INSU100I23 SQ (17:54)
[2018-04-22] MEDS ORDERED: AMOX875T PO (17:54)
[2018-04-22] MEDS ORDERED: INSU32MI13 INJ (17:54)
[2018-04-22] MEDS ORDERED: METO50TA8 PO (17:54)
--- NOTE | 2018-04-22 18:04 | Discharge Instructions ---
Discharge Instructions Date of Service Apr 22, 2018. Admission Reason for Admission: chest pain . Discharge Discharge Diagnosis / Problem: cholecystitis- inflamed gallbladder Discharge Goals Goal(s): Decrease discomfort, Improve disease control Activity Recommendations Activity Limitations: as noted below Lifting Limitations: no more than 10 pounds, gradually increase as tolerated . Instructions / Follow-Up Instructions / Follow-Up APPOINTMENTS: GENERAL SURGERY Dr. Lilly Please see General Surgery instructions for follow-up appointment. EAR, NOSE, AND THROAT 04/29/2018 5:20 PM Colin Jim II, MD Otolaryngology [facility] 05/05/2018 2:20 PM Papa Rankin DO [facility] 05/24/2018 2:00 PM Olesya Cannon PA-C Cardiology, [facility] OTHER INSTRUCTIONS: Your gallbladder was infected and inflamed. Take amoxicillin + clavulanic acid (Augmentin) twice a day with food to complete your antibiotics. Heart rhythm went into atrial fibrillation for a while. Take additional dose of metoprolol succinate (Toprol XL) 50 mg at bedtime. Blood sugars were running too high. Add Basaglar long acting insulin to your routine. Take 20 units every morning. Seek medical attention if you have: * temperature above 101 * chest pain or trouble breathing * abdominal pain, nausea, vomiting * diarrhea, dark stools or bloody stools * any unanswered questions or concerns Call 911 if symptoms are severe. Call if you have any questions or problems. My cell # is [phone]. You can also reach a [facility] hospitalist on duty at [facility] 24 hours a day by calling [phone]. Please take good care of yourself. Jefferson Castro . Current Hospital Diet Patient's current hospital diet: Diabetes Type 2 Diet, AHA Diet (Heart Healthy) , Low Fat Diet Discharge Diet Recommended Diet: AHA Diet (Heart Healthy), Diabetes Type 2 Diet Procedures Procedures Performed: Laparoscopic Cholecystectomy Pending Studies Studies pending at discharge: no Laboratory Results Lipid Panel Test 04/17/18 07:25 Range/Units Triglycerides Level 158 H 0-150 mg/dl Cholesterol Level 112 0-200 mg/dl HDL Cholesterol 32 mg/dl Cholesterol/HDL Ratio 3.5 LDL Cholesterol, Calculated 48 mg/dl Medical Emergencies . Who to Call and When: Medical Emergencies: If at any time you feel your situation is an emergency, please call 911 immediately. . Non-Emergent Contact Non-Emergency issues call your: Primary Care Provider, Civil Geotechnical Engineer, Hospital Doctor, Surgeon . . "Provider Documentation" section prepared by Jefferson Castro. . Customs Consultant Recommendations Customs Consultant Recommendations: No heavy lifting over 10 pounds for 3-4 weeks No strenuous activity until cleared by surgeon No submerging incisions underwater for 2 weeks (no bathing, swimming, or hot tubs) No driving while taking narcotic pain medication or until you are pain free You may shower, leave steri strips on incisions for total of 7 days from surgery and then remove. They may fall off on their own that is okay. Keep area where drain was removed covered with dressing until healed, this site will close from the inside out and may drain when up and moving around. Walking and light activity is encouraged to prevent blood clots from forming. You may take Tramadol as needed for moderate to severe pain. Take as directed. This medication may cause drowsiness and constipation. To combat constipation: -Drink plenty of water daily, avoid foods that constipate, take OTC stool softener such as Colace daily or twice a day while taking Tramadol - If above measures do not work and you are still constipated, you may take milk of magnesia or Miralax Avoid fatty/greasy foods for first 1-2 weeks and then slowly introduce foods in your diet as tolerated You will be given prescription for antibiotics given amount of inflammation of your gallbladder, take entire course as directed. Follow-up in surgical office in 1-2 weeks, please call office at [phone] to make an appointment. [place] Drug Monitoring Program Search Results: patient reviewed within database, no issues identified
--- NOTE | 2018-04-22 20:22 | Progress Note ---
Medicine Progress Note Date & Time of Visit: Apr 22, 2018 . Subjective Evaluated this morning and rechecked in the afternoon and evening. Went into atrial fibrillation early this morning with rapid ventricular response. Experienced palpitations, but no chest pain or dyspnea. K+, Mg++, oxygenation OK. Received IV metoprolol and diltiazem, but stayed in AF with rapid ventricular rate. Received flecainide and converted to NSR around noon; stayed in NSR thereafter. Feels well. No N/V. RUQ drain removed by General Surgery. Ambulating. Would like to go home. . Objective Last 8 Hrs Date Time Temp Pulse Resp B/P (MAP) Pulse Ox O2 Delivery O2 Flow Rate FiO2 04/22/18 18:10 36.4 80 18 98 Room Air 04/22/18 15:03 36.4 80 18 142/90 (107) 98 Room Air Physical Exam: (exam ~ 080) General- lying in bed, no distress ENT- hoarseness improved Lungs- clear to auscultation; no respiratory distress Cardiovascular- irregular, tachy; no gallop appreciated; no JVD; no pretibial edema Abdomen- + bowel sounds, soft, nontender; RUQ drain removed Extremities- no cyanosis; no calf tenderness Neuro- alert, oriented Skin- warm & dry . Laboratory Results: Last 24 Hours Test 04/22/18 06:31 04/22/18 06:37 04/22/18 11:17 04/22/18 16:26 White Blood Count 7.24 K/uL Red Blood Count 5.04 M/uL Hemoglobin 15.0 g/dL Hematocrit 42.6 % Mean Corpuscular Volume 84.5 fL Mean Corpuscular Hemoglobin 29.8 pg Mean Corpuscular Hemoglobin Concent 35.2 g/dl Platelet Count 244 K/uL Mean Platelet Volume 9.7 fL Neutrophils (%) (Auto) 72.5 % Lymphocytes (%) (Auto) 15.5 % Monocytes (%) (Auto) 10.2 % Eosinophils (%) (Auto) 1.2 % Basophils (%) (Auto) 0.3 % Neutrophils # (Auto) 5.25 K/uL Lymphocytes # (Auto) 1.12 K/uL Monocytes # (Auto) 0.74 K/uL Eosinophils # (Auto) 0.09 K/uL Basophils # (Auto) 0.02 K/uL RDW Standard Deviation 41.1 fL RDW Coefficient of Variation 13.4 % Immature Granulocyte % (Auto) 0.3 % Immature Granulocyte # (Auto) 0.02 K/uL Sodium Level 132 mmol/L Potassium Level 4.1 mmol/L Chloride Level 97 mmol/L Carbon Dioxide Level 26 mmol/L Anion Gap 9.0 mmol/L Blood Urea Nitrogen 11 mg/dl Creatinine 1.05 mg/dl Est Creatinine Clear Calc Drug Dose 119.0 ml/min Estimated GFR () 97.5 Estimated GFR (Non- 84.1 BUN/Creatinine Ratio 10.5 Random Glucose 233 mg/dl Calcium Level 8.9 mg/dl Magnesium Level 1.9 mg/dl Total Bilirubin 1.1 mg/dl Aspartate Amino Transf (AST/SGOT) 22 U/L Alanine Aminotransferase (ALT/SGPT) 104 U/L Alkaline Phosphatase 86 U/L Total Protein 7.8 gm/dl Albumin 3.1 gm/dl Globulin 4.7 gm/dl Albumin/Globulin Ratio 0.7 Lipase 235 U/L Bedside Glucose 222 mg/dl 248 mg/dl 258 mg/dl Assessment & Plan CHOLECYSTITIS Presented with right upper quadrant pain. Gallbladder ultrasound demonstrated cholelithiasis without ultrasound criteria of cholecystitis. White count was initially 7310 and hernandez as high as 13,710 the morning of 04/18.. Laparoscopic cholecystectomy performed by Dr. Lilly on 04/18/18; found to have gangrenous gallbladder. POD # 4. Drain removed. Transitioned from IV piperacillin / tazobactam to oral therapy with amoxicillin / sulbactam to complete 7 days of antibiotic therapy. SEPSIS Met criteria for sepsis morning of 04/18/18 when white count hernandze to 13,000 in association with tachycardia. Source of sepsis was cholecystitis. Blood cultures were obtained and patient was started on broad-spectrum antibiotic coverage with piperacillin/tazobactam. Serum lactate was 2.9. Repeat lactate was 1.2. No hypotension. HOARSENESS / SUSPECTED ASPIRATION Symptoms developed postoperatively after general anesthesia with endotracheal tube. Discussed with Anesthesia. ENT consulted. Received dexamethasone 10 mg IV 1 with improvement. No aspiration seen on video swallow 04/20. Outpatient follow-up with ENT. CORONARY ARTERY DISEASE History of ischemic heart disease, status post prior myocardial infarction . Cardiac catheterization on 04/09/18 demonstrated chronic RCA occlusion with collateral filling, tortuous LAD with 50% narrowing, 70% branch vessel stenosis of posterior descending artery . Serial troponins negative. CP at time of admission attributed to cholecystitis. Seen in consultation by Cardiology. Echocardiogram demonstrated segmental wall motion abnormalities, overall LVEF 50 -55%. Received IV metoprolol while NPO. Resumed aspirin and metoprolol when able to resume oral meds. HISTORY OF PAROXYSMAL ATRIAL FIBRILLATION Normal sinus rhythm at time of admission. Received IV metoprolol while NPO. Metoprolol, diltiazem, apixaban resumed postoperatively. Developed paroxysmal AF today as summarized in HPI. Converted to NSR after receiving dose of flecainide. Metoprolol succinate dose increased from 100 mg daily to 100 mg in the morning and 50 mg HS. Diltiazem CD 240 mg daily continued. HYPERTENSION/HYPERTENSIVE URGENCY Blood pressures day of admission as high as 196 systolic. Cardiovascular medications adjusted and BP's improved. Continue metoprolol, diltiazem, losartan. DIABETES MELLITUS TYPE 2 Hemoglobin A1c 8.9 on 04/05/18. Random blood sugar at time of admission was 309. Pharmacy consulted for glycemic management. [corrected 04/20/18 @ 21:07 KEON] Receiving Lantus/NovoLog per protocol. Fasting blood sugar this morning 222. Discharge on previous outpatient regimen of metformin 1000 mg BID, glipizide 20 mg BID, linagliptin 5 mg daily with addition of Basaglar 20 units each morning. Ongoing outpatient management. DYSLIPIDEMIA Continue atorvastatin. OBESITY Weight 127 kg, BMI 36.9. AHA / diabetic diet. DIABETIC NEUROPATHY Continue pregabalin. DEPRESSION Continue sertraline. VTE PROPHYLAXIS On apixaban for paroxysmal atrial fibrillation. Apixaban held for surgery. SCD's utilized preoperatively. Started on SQ enoxaparin postoperatively. Resumed apixaban. DISPOSITION Discharge to home. Medical follow-up with Dr. Colmenares. General Surgery follow-up with Dr. Lilly. Outpatient ENT follow-up with Dr. Jim. .
[2018-04-23] MEDS ORDERED: LOSARTAN POTASSIUM 50 MG TAB PO SCH (09:00)
[2018-04-23] MEDS ORDERED: DILTIAZEM HCL 240 MG CAPCR PO SCH ×2 (09:00)
--- NOTE | 2018-04-23 15:26 | Discharge Summary ---
Discharge Summary Date of Service Apr 23, 2018. Discharge Summary Admission Date: Apr 18, 2018 at 07:15 Discharge Date: Apr 22, 2018 Discharge Disposition: Home Principal Diagnosis: acute gangrenous cholecystitis OTHER ACUTE DIAGNOSES: postoperative hoarseness paroxysmal atrial fibrillation with rapid ventricular response . Secondary Diagnoses/Problems: Chronic and resolved Medical Problems: (1) Atrial fibrillation, paroxysmal Status: Chronic (2) CAD (coronary artery disease) Status: Chronic (3) Chronic systolic (congestive) heart failure Permanent Comment: Ischemic, EF 48% with moderate LV hypokinesis Status: Chronic (4) Diabetic polyneuropathy associated with type 2 diabetes mellitus Status: Chronic (5) History of CVA (cerebrovascular accident) Status: Chronic (6) History of renal cell carcinoma Status: Chronic (7) HLD (hyperlipidemia) Status: Chronic (8) HTN (hypertension) Status: Chronic (9) Kidney disease Status: Resolved (10) Obesity (BMI 30.0-34.9) Status: Chronic (12) Recurrent major depressive disorder Status: Chronic (13) Stroke Status: Resolved (14) Type 2 diabetes mellitus Status: Chronic (15) Vertigo Status: Chronic Surgical Problems: (1) History of amputation of right great toe Status: Chronic (2) History of laminectomy Status: Chronic (3) History of partial nephrectomy Permanent Comment: left 05/12/2017 Dr. Miguel Status: Chronic (4) History of tonsillectomy Status: Chronic . Procedures: cardiac monitoring US gallbladder CTA chest CT abdomen and pelvis echo video swallow IV meds . Consultations: Cardiology General Surgery . Medication Reconciliation New Medications: Amoxicillin & Pot Clavulanate (Augmentin 875-125 mg) 1 Tab Tab 875 MG PO BID, #4 TAB take twice a day with food until gone Insulin Glargine (Basaglar Kwikpen) 100 Unit/Ml Inj 20 UNITS SQ DAILY, #5 SYR 12 Refills Insulin Pen Needle (Bd Pen Needle/Jamee/Ultra) 1 Mis Mis BOX INJ UD, #1 12 Refills BD insulin pen jamee needles for Basaglar KwikPen Metoprolol Succ (Toprol Xl) (Toprol-Xl) 50 Mg Tabcr 50 MG PO HS, #30 TAB 5 Refills Tramadol (Ultram) 50 Mg Tab 50 MG PO Q4H PRN for Pain, #30 TAB Continued Medications: Acetaminophen (Tylenol) 500 Mg Tab 1000 MG PO Q8 PRN for Pain, TAB Apixaban (Eliquis) 5 Mg Tab 5 MG PO BID, TAB Aspirin (Aspirin Ec) 81 Mg Tab 81 MG PO DAILY Atorvastatin (Lipitor) 80 Mg Tab 80 MG PO DAILY, TAB Cyanocobalamin (Vitamin B-12) 1,000 Mcg Tab 2000 MCG PO DAILY, TAB Diltiazem Hcl Coated Beads (Diltiazem Cd) 240 Mg Cap 240 MG PO DAILY Doxazosin Mesylate (Cardura) 2 Mg Tab 1 MG PO DAILY Doxycycline Hyclate (Vibramycin) 50 Mg Cap 50 MG PO BID Glipizide (Glucotrol) 10 Mg Tab 20 MG PO BID, TAB take 30 min before morning and evening meals. Hydrochlorothiazide (Hctz) 25 Mg Tab 25 MG PO DAILY Linagliptin (Tradjenta) 5 Mg Tab 5 MG PO DAILY Losartan Potassium (Cozaar) 100 Mg Tab 100 MG PO DAILY Meclizine Hcl (Meclizine Hcl) 25 Mg Tab 25 MG PO BID Metformin Hcl (Glucophage) 1,000 Mg Tab 1000 MG PO BID, TAB Metoprolol Succ (Toprol Xl) (Toprol-Xl ) 100 Mg Tabcr 100 MG PO DAILY Multiple Vitamin (Multivitamin) 1 Tab Tab 1 TAB PO DAILY for 90 Days, #90 TAB 3 Refills Omeprazole (Prilosec) 20 Mg Cap 20 MG PO DAILY, CAP Ondasetron Odt (Zofran Odt) 4 Mg Tab 4 MG SL Q8 PRN for Nausea, #6 TAB Pregabalin (Lyrica) 75 Mg Cap 75 MG PO TID Probiotic Product (Probiotic) 1 Cap Cap 1 CAP PO DAILY Sennosides-Docusate Sodium (Senna Plus) 1 Tab Tab 2 TABS PO BID Sertraline (Zoloft) 50 Mg Tab 100 MG PO HS Tramadol (Ultram) 50 Mg Tab 50 MG PO TID Vardenafil (Levitra) 20 Mg Tab 20 MG PO DIRECTED, TAB Admission Information HPI (per Admitting provider): This is a 47 year old male with multiple medical co morbidities including CAD, Ischemic Systolic CHF EF 48%, HTN, HLD, Uncontrolled DM2, Diabetic polyneuropathy, PAF, Hx of Cerebellar CVA Left [employer]ING [employer], PVD, Morbid obesity, hx of L RCC s/p partial nephrectomy 05/2017, hx of DDD with lumbar laminectomy who presents to [facility] secondary to chest pain x 1 day. He states yesterday at 4 PM developed right sided pain, pointing to RUQ of abdomen , "felt like being poked in ribs," constant, 05/17, radiated to RLQ and right side of back, made worse with movement, nothing made better, tried no OTC medications. Initially late last evening symptoms improved, however when woke up this morning symptoms returned. Described as burning. He never had similar sx in past. Had associated nausea, emesis x 1 that preceded pain hours prior, SOB at rest. Symptoms occurred while sitting on couch watching tv. Currently pain /10, "pain meds are wearing off." Poor appetite, decreased PO intake over past 24 hours. Patient is well known to cardiology and of significance back on 04/09/18 patient had cardiac cath secondary to failed stress test by Dr. Mendoza. On 03/17 nuclear stress was done secondary to OLGUIN, revealed possible RCA territory infarct, moderate LV hypokinesis and EF of 48%. Cath revealed 100 % distal RCA occlusion with RPL branches filling via collaterals, 70% prox RPDA , proximal LAD stenosis up to 50%. No intervention was done, cardiac medical management was recommended. In ED patient was given IV morphine for pain control, IV fluids 1 L. Labs revealed sodium 131, potassium 3.9, chloride 94, BUN 15, creatinine 1.29, glucose 309, hemoglobin 16, hematocrit 43.7, WBC 7.3, platelet 174, initial troponin 0 0.03, repeat troponin 0 0.05, elevated d-dimer at 530, elevated betabutyric acid at 610. CTA negative for PE, + for fatty liver. US of abdomen showed gallstones, but negative for cholecystitis. . Physical Exam (per Admitting): General Appearance: WD/WN (Male, appears older than age, appears fatigued), no apparent distress, + obese Head: normocephalic, atraumatic Eyes: normal inspection, PERRL, EOMI, sclerae normal ENT: normal ENT inspection, hearing grossly normal, + pertinent finding ( Mucous membranes moist) Neck: supple, no adenopathy, thyroid normal, no JVD Respiratory/Chest: chest non-tender, lungs clear, normal breath sounds, no respiratory distress, no accessory muscle use Cardiovascular: regular rate, rhythm, no edema, no gallop, no JVD, no murmur , normal peripheral pulses, + pertinent finding (no chest wall tenderness to palpation) Abdomen/GI: normal bowel sounds, soft, + tenderness (In right upper quadrant , no rebound, no guarding, negative Cash's), + distended (Secondary to obesity ) Back: normal inspection, no CVA tenderness, no muscle spasm Extremities/Musculoskelatal: normal inspection, no calf tenderness, normal capillary refill, no pedal edema Neurologic/Psych: alert, normal mood/affect, normal reflexes Skin: normal color, warm/dry Hospital Course CHOLECYSTITIS Presented with right upper quadrant pain. Gallbladder ultrasound demonstrated cholelithiasis without ultrasound criteria of cholecystitis. White count was initially 7310 and hernandez as high as 13,710 the morning of 04/18.. Laparoscopic cholecystectomy performed by Dr. Lilly on 04/18/18; found to have gangrenous gallbladder. POD # 4. Drain removed. Transitioned from IV piperacillin / tazobactam to oral therapy with amoxicillin / sulbactam to complete 7 days of antibiotic therapy. SEPSIS Met criteria for sepsis morning of 04/18/18 when white count hernandez to 13,000 in association with tachycardia. Source of sepsis was cholecystitis. Blood cultures were obtained and patient was started on broad-spectrum antibiotic coverage with piperacillin/tazobactam. Serum lactate was 2.9. Repeat lactate was 1.2. No hypotension. HOARSENESS / SUSPECTED ASPIRATION Symptoms developed postoperatively after general anesthesia with endotracheal tube. Discussed with Anesthesia. ENT consulted. Received dexamethasone 10 mg IV 1 with improvement. No aspiration seen on video swallow 04/20. Outpatient follow-up with ENT. CORONARY ARTERY DISEASE History of ischemic heart disease, status post prior myocardial infarction . Cardiac catheterization on 04/09/18 demonstrated chronic RCA occlusion with collateral filling, tortuous LAD with 50% narrowing, 70% branch vessel stenosis of posterior descending artery . Serial troponins negative. CP at time of admission attributed to cholecystitis. Seen in consultation by Cardiology. Echocardiogram demonstrated segmental wall motion abnormalities, overall LVEF 50 -55%. Received IV metoprolol while NPO. Resumed aspirin and metoprolol when able to resume oral meds. HISTORY OF PAROXYSMAL ATRIAL FIBRILLATION Normal sinus rhythm at time of admission. Received IV metoprolol while NPO. Metoprolol, diltiazem, apixaban resumed postoperatively. Developed paroxysmal AF today as summarized in HPI. Converted to NSR after receiving dose of flecainide. Metoprolol succinate dose increased from 100 mg daily to 100 mg in the morning and 50 mg HS. Diltiazem CD 240 mg daily continued. HYPERTENSION/HYPERTENSIVE URGENCY Blood pressures day of admission as high as 196 systolic. Cardiovascular medications adjusted and BP's improved. Continue metoprolol, diltiazem, losartan. DIABETES MELLITUS TYPE 2 Hemoglobin A1c 8.9 on 04/05/18. Random blood sugar at time of admission was 309. Pharmacy consulted for glycemic management. [corrected 04/20/18 @ 21:07 KEON] Receiving Lantus/NovoLog per protocol. Fasting blood sugar day of discharge was 222. Discharge on previous outpatient regimen of metformin 1000 mg BID, glipizide 20 mg BID, linagliptin 5 mg daily with addition of Basaglar 20 units each morning. Ongoing outpatient management. DYSLIPIDEMIA Continue atorvastatin. OBESITY Weight 127 kg, BMI 36.9. AHA / diabetic diet. DIABETIC NEUROPATHY Continue pregabalin. DEPRESSION Continue sertraline. VTE PROPHYLAXIS On apixaban for paroxysmal atrial fibrillation. Apixaban held for surgery. SCD's utilized preoperatively. Started on SQ enoxaparin postoperatively. Resumed apixaban. DISPOSITION Discharge to home. Medical follow-up with Dr. Colmenares. General Surgery follow-up with Dr. Lilly. Outpatient ENT follow-up with Dr. Jim. . Total time spent on discharge = 45 min. This includes examination of the patient, discharge planning, medication reconciliation, and communication with other providers. . Discharge Instructions Discharge Instructions Date of Service Apr 22, 2018. Admission Reason for Admission: chest pain . Discharge Discharge Diagnosis / Problem: cholecystitis- inflamed gallbladder Discharge Goals Goal(s): Decrease discomfort, Improve disease control Activity Recommendations Activity Limitations: as noted below Lifting Limitations: no more than 10 pounds, gradually increase as tolerated . Instructions / Follow-Up Instructions / Follow-Up APPOINTMENTS: GENERAL SURGERY Dr. Lilly Please see General Surgery instructions for follow-up appointment. EAR, NOSE, AND THROAT 04/29/2018 5:20 PM Colin Jim II, MD Otolaryngology [facility] 05/05/2018 2:20 PM Papa Rankin DO [facility] 05/24/2018 2:00 PM Olesya Cannon PA-C Cardiology, [facility] OTHER INSTRUCTIONS: Your gallbladder was infected and inflamed. Take amoxicillin + clavulanic acid (Augmentin) twice a day with food to complete your antibiotics. Heart rhythm went into atrial fibrillation for a while. Take additional dose of metoprolol succinate (Toprol XL) 50 mg at bedtime. Blood sugars were running too high. Add Basaglar long acting insulin to your routine. Take 20 units every morning. Seek medical attention if you have: * temperature above 101 * chest pain or trouble breathing * abdominal pain, nausea, vomiting * diarrhea, dark stools or bloody stools * any unanswered questions or concerns Call 911 if symptoms are severe. Call if you have any questions or problems. My cell # is [phone]. You can also reach a [facility] hospitalist on duty at [facility] 24 hours a day by calling [phone]. Please take good care of yourself. Jefferson Castro . Current Hospital Diet Patient's current hospital diet: Diabetes Type 2 Diet, AHA Diet (Heart Healthy) , Low Fat Diet Discharge Diet Recommended Diet: AHA Diet (Heart Healthy), Diabetes Type 2 Diet Procedures Procedures Performed: Laparoscopic Cholecystectomy Pending Studies Studies pending at discharge: no Laboratory Results Lipid Panel Test 04/17/18 07:25 Range/Units Triglycerides Level 158 H 0-150 mg/dl Cholesterol Level 112 0-200 mg/dl HDL Cholesterol 32 mg/dl Cholesterol/HDL Ratio 3.5 LDL Cholesterol, Calculated 48 mg/dl Medical Emergencies . Who to Call and When: Medical Emergencies: If at any time you feel your situation is an emergency, please call 911 immediately. . Non-Emergent Contact Non-Emergency issues call your: Primary Care Provider, Returner, Hospital Doctor, Surgeon . . "Provider Documentation" section prepared by Jefferson Castro. . Litigation Support Analyst Recommendations Litigation Support Analyst Recommendations: No heavy lifting over 10 pounds for 3-4 weeks No strenuous activity until cleared by surgeon No submerging incisions underwater for 2 weeks (no bathing, swimming, or hot tubs) No driving while taking narcotic pain medication or until you are pain free You may shower, leave steri strips on incisions for total of 7 days from surgery and then remove. They may fall off on their own that is okay. Keep area where drain was removed covered with dressing until healed, this site will close from the inside out and may drain when up and moving around. Walking and light activity is encouraged to prevent blood clots from forming. You may take Tramadol as needed for moderate to severe pain. Take as directed. This medication may cause drowsiness and constipation. To combat constipation: -Drink plenty of water daily, avoid foods that constipate, take OTC stool softener such as Colace daily or twice a day while taking Tramadol - If above measures do not work and you are still constipated, you may take milk of magnesia or Miralax Avoid fatty/greasy foods for first 1-2 weeks and then slowly introduce foods in your diet as tolerated You will be given prescription for antibiotics given amount of inflammation of your gallbladder, take entire course as directed. Follow-up in surgical office in 1-2 weeks, please call office at [phone] to make an appointment. [place] Drug Monitoring Program Search Results: patient reviewed within database, no issues identified . Additional Copies To Papa Colmenares D.O.; Griffin Amaya D.O.; Colin Jim M.D.; Walker Lilly M.D.
== END 2018-04-22 18:34 | disposition home or self-care (01) | DRG 418 ==
LOC: C.EDB 13:43 → C.2T 18:31 → ENRESERV 19:10 → OBSVTOIN 04-18 07:15
PROVIDERS: ADMIT Hospitalist; ATTEND Hospitalist
PROC: 0FT44ZZ Resection of Gallbladder, Percutaneous Endoscopic Approach (ICD-10-PCS; principal; 2018-04-18 12:00)
DX: K80.00 Calculus of gallbladder with acute cholecystitis without obstruction (principal); I50.22 Chronic systolic (congestive) heart failure; F33.9 Major depressive disorder, recurrent, unspecified; N17.9 Acute kidney failure, unspecified; I13.0 Hypertensive heart and chronic kidney disease with heart failure and stage 1 through stage 4 chronic kidney disease, or unspecified chronic kidney disease; N18.9 Chronic kidney disease, unspecified; I25.10 Atherosclerotic heart disease of native coronary artery without angina pectoris; E11.21 Type 2 diabetes mellitus with diabetic nephropathy; Z86.73 Personal history of transient ischemic attack (TIA), and cerebral infarction without residual deficits; E11.42 Type 2 diabetes mellitus with diabetic polyneuropathy; E11.65 Type 2 diabetes mellitus with hyperglycemia; E78.5 Hyperlipidemia, unspecified; E66.9 Obesity, unspecified; Z68.30 Body mass index [BMI] 30.0-30.9, adult; Z87.891 Personal history of nicotine dependence; I16.0 Hypertensive urgency; R49.0 Dysphonia; Z85.520 Personal history of malignant carcinoid tumor of kidney; Y83.8 Other surgical procedures as the cause of abnormal reaction of the patient, or of later complication, without mention of misadventure at the time of the procedure; Y92.230 Patient room in hospital as the place of occurrence of the external cause; I25.2 Old myocardial infarction; I48.0 Paroxysmal atrial fibrillation; Z68.36 Body mass index [BMI] 36.0-36.9, adult; F32.9 Major depressive disorder, single episode, unspecified; Z88.5 Allergy status to narcotic agent; K76.0 Fatty (change of) liver, not elsewhere classified